=== PATIENT | female | born 2000 | race Caucasian/White ===

== ENCOUNTER → 2018-10-07 10:44 | Outpatient (CLI) | payer OTHER, SELFPAY ==
--- NOTE | 2018-10-07 11:00 | EKG12_ITS ---
Test Reason : SOB,31WK PREG Blood Pressure : / mmHG Vent. Rate : 073 BPM Atrial Rate : 073 BPM P-R Int : 136 ms QRS Dur : 086 ms QT Int : 392 ms P-R-T Axes : 050 089 -05 degrees QTc Int : 431 ms Normal sinus rhythm T wave abnormality, consider inferior ischemia Abnormal ECG Confirmed by MIRIAN ALFORD, JAISON ([id number]), editor book JOSE FONTANEZ ([id number]) on 10/08/2018 1:16:36 PM Referred By: REGINE Prabhakar Confirmed By:JAISON VELA MD
[2018-10-07 11:32] LABS: Absolute Lymphocyte Count 1.71 X10^3/uL (0.83-4.51); Absolute Neutrophil Count 10.5 X10^3/uL (2.0-7.7); Basophil# 0.02 X10^3/uL; Basophil% 0.2 % (0-1); Eosinophil# 0.03 X10^3/uL; Eosinophils% 0.2 % (0-5); Hemoglobin 11.8 g/dL (12.0-15.0); Lymphocyte # 1.71 X10^3/ul (4.0); Lymphocyte % 13.1 % (19-41); Mean Corp Hgb Conc 33.7 g/dL (32-36); Mean Corpuscular Hgb 30.5 pg (27.0-32.0); Mean Corpuscular Volume 90.4 fL (81-99); Mean Platelet Vol. 9.2 fl (6.2-12.0); Monocyte% 5.4 % (0-10); NRBC Flagged by Analyzer 0 % (0-5); Neutrophil # 10.45 X10^3/uL (2.7-7.7); Neutrophil % 80.3 % (47-70); Platelet Count 196 K/mm3 (150-450); RBC Distribution Width CV 11.8 % (11.6-14.6); RBC Distribution Width SD 38.1 fl (35.1-43.9); Red Blood Count 3.87 M/mm3 (4.2-5.4)
[2018-10-07 11:46] LABS: ALB/GLOB Ratio 0.7 RATIO (0.9-2.4); AST(SGOT) 50 U/L (15-37); Alanine Aminotransfer ALT/SGPT 40 U/L (13-56); Albumin, Serum 2.9 g/dL (3.2-5.0); Alkaline Phosphatase 155 U/L (45-117); Amylase 48 U/L (25-115); Anion Gap 7 (5-15); BUN 8 mg/dL (7-18); BUN/Creat Ratio 15.8 RATIO (10-20); Calcium,Total 8.8 mg/dL (8.5-10.1); Chloride 107 mmol/L (98-107); Creatinine, Serum 0.51 mg/dL (0.55-1.02); EST Glomerular Filtration Rate 165 mL/min (>60); Est Glom Filt Rate - Afr Amer 199 mL/min (>60); Glucose 81 mg/dL (74-106); Lipase 113 U/L (73-393); Potassium 3.8 mmol/L (3.5-5.1); Protein, Total 6.9 g/dL (6.4-8.2); Sodium Level 139 mmol/L (136-145)
--- NOTE | 2018-10-07 13:00 | CT_ITS ---
STUDY: CTA CHEST REASON FOR EXAM: Female, 18 years old. Shortness of breath and patient is now 31 weeks RADIATION DOSAGE (If Supplied By Facility): CTDIvol = ( 8.06 ) mGy, DLP = ( 269.15 ) mGycm TECHNIQUE: The examination was performed with the intravenous administration of 100mL IV Isovue 370. Post-processing of the angiographic images was performed, with multiplanar reformation and 3D reconstruction. Individualized dose optimization techniques were used for this CT. COMPARISON: None. FINDINGS: Normal enhancement of the main pulmonary artery and right and left pulmonary arteries. There is limited enhancement of the bilateral peripheral pulmonary arteries. There is no demonstrated pulmonary embolism in the central portion. Assessment of the branches distal to the segmental branches is limited due to suboptimal contrast. Normal thoracic aorta and visualized great vessels. There is no demonstrated aortic dissection. Normal heart and pericardium. Normal mediastinum. Normal hilar regions. Normal visualized trachea and bronchi. The lungs are well expanded. Normal pulmonary parenchyma. Normal pleura. Normal chest wall structures. Normal osseous structures. Normal visualized upper abdomen. CT/CTA Chest W/WO Contrast IMPRESSION: No evidence of central pulmonary embolism. Assessment of the branches distal to the segmental branches is limited due to suboptimal contrast. No evidence of pneumonia, or pleural effusion. Correlation with patient's symptoms and history is recommended. Electronically Signed: Avery Bonilla MD at 14:20 EDT Tel [phone], Service support ,
== END ==
PROVIDERS: Family Provider Physician Assistant; PCP Physician Assistant; Referring Provider Advanced Practice Midwife; Visit Provider Advanced Practice Midwife
DX: O26.893 Other specified pregnancy related conditions, third trimester (principal); R06.02 Shortness of breath; R07.9 Chest pain, unspecified; Z3A.31 31 weeks gestation of pregnancy
CPT/HCPCS: 36415; 71275; 80053; 82150; 83690; 85025; 93005; Q9967

== ENCOUNTER 2018-12-03 04:55 | Inpatient (IN) | payer OTHER, SELFPAY ==
--- NOTE | 2018-12-02 09:44 | PCM.HP.BLA ---
History and Physical Date of Admission: 12/03/18 Pre-Op History and Physical ? HPI: The patient is a 18 year old female presenting for pre-operative visit. She is scheduled for?, for?breech on?12/03/18. ??Procedure discussed along with risks, benefits and complications. ?Other alternatives discussed for management. Consent form signed??Yes.? PAST?MEDICAL?HISTORY PAST MEDICAL HISTORY Diagnosis Date ? Anxiety ? ? Mental disorder ? ? ? PAST?SURGICAL?HISTORY No past surgical history on file. ? ? CURRENT?MEDICATIONS Current Outpatient Medications Medication Sig Dispense Refill ? acetaminophen (TYLENOL) 325 mg tablet Take 650 mg by mouth every 6 hours as needed. ? ? ? Tnbmtglq-Hi-Vov-Fe-FA ( VITAMIN) tab Take 1 tablet by mouth. ? ? ? No current facility-administered medications for this visit.? ? ALLERGIES:?Seasonal Allergies ? PERSONAL HISTORY:? 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 ??Social Needs ?Financial resource strain: Not on file ?Food insecurity: ?Worry: Not on file ?Inability: Not on file ?Transportation needs: ?Medical: Not on file ?Non-medical: Not on file ??Tobacco Use ?Smoking status: Never Smoker ?Smokeless tobacco: Never Used ??Substance and Sexual Activity ?Alcohol use: Never ?Frequency: Never ?Drug use: Never ?Sexual activity: Yes ?Partners: Male ??Lifestyle ?Physical activity: ?Days per week: Not on file ?Minutes per session: Not on file ?Stress: Not on file ??Relationships ?Social connections: ?Talks on phone: Not on file ?Gets together: Not on file ?Attends adventism service: Not on file ?Active member of club or organization: Not on file ?Attends meetings of clubs or organizations: Not on file ?Relationship status: Not on file ?Intimate partner violence: ?Fear of current or ex partner: Not on file ?Emotionally abused: Not on file ?Physically abused: Not on file ?Forced sexual activity: Not on file ??Other Topics ?Concerns: ?Not on file ??Social History Narrative ?Not on file ? FAMILY HISTORY:? FAMILY?HISTORY FAMILY HISTORY Problem Relation Age of Onset ? No Known Problems Mother ? ? No Known Problems Father ? ? No Known Problems Brother ? ? No Known Problems Maternal Grandmother ? ? No Known Problems Maternal Grandfather ? ? No Known Problems Paternal Grandmother ? ? Blood Clots Paternal Grandfather ? ? REVIEW OF SYMPTOMS: GENERAL: denies fevers or chills ENDOCRINOLOGY: has not been on steroids Cardiology : denies palpitations or chest pain Respiratory: denies SOB or cough Hematology: denies history of prolonged bleeding or easy bruising or VTE Allergy: Denies history of personal or family history of allergy to anesthesia ? ? PHYSICAL EXAMINATION: ? VITALS:?Last menstrual period 03/04/2018. ? GENERAL:??The patient is well nourished, well hydrated in no acute distress. ?, The patient is oriented to time, place, and person. NECK:?Supple. No lynphadenopathy, normal thyroid, no thyromegaly. LUNGS:?Clear to auscultation bilaterally. no wheezes, rhonchi or rales HEART:?Regular rate and rhythm, Normal heart sounds and No murmurs or gallops abd- soft, nontender, gravid ext- trace edema ? IMPRESSION:?Patient will be 39 and one sevenths weeks gestation on 12/03/2018, complete breech presentation. ? 1 para 0, declines external cephalic version attempt ? PLAN:???The risks/benefits/alternatives and personal involved for the planned?c/s?were reviewed with the patient. Her questions were answered to her satisfaction and she desires to proceed. ?Consent was signed. ?I reviewed with her postop instructions and expectations. ? This H&P was completed in my office on 11/29/2018. ?That they did skin the patient, her fluid was on the low normal level. ?Her placenta was anterior fundal and a little to the left. ? lie was maternal right. ?The breech was well engaged. ?We discussed that did not have a lot of favorable predictors for successful external cephalic version, patient was not interested in this but clinically it would been low likelihood of success regardless. ?Agree with proceeding with . ? ? I have reviewed and updated past medical and surgical history, medications and allergies? Georgie Padilla M.D. I have re-examined the patient. There are no clinical changes since date of exam. Brief ultrasound was confirmed, fetus is still breech. Patient desires to proceed with section.
[2018-12-03] VITALS (21 sets, daily range): BP systolic 103–138; BP diastolic 48–91; PULSE 76–111; RESP 16–20; TEMP 36.1–37.3; O2SAT 95–100; BMI 29.6
[2018-12-03 05:39] LABS: Absolute Lymphocyte Count 2.41 X10^3/uL (0.83-4.51); Absolute Neutrophil Count 8.2 X10^3/uL (2.0-7.7); Basophil# 0.03 X10^3/uL; Basophil% 0.3 % (0-1); Eosinophils% 1.7 % (0-5); Hematocrit 32.1 % (37-47); Hemoglobin 10.5 g/dL (12.0-15.0); Lymphocyte # 2.41 X10^3/ul (4.0); Lymphocyte % 20.3 % (19-41); Mean Corp Hgb Conc 32.7 g/dL (32-36); Mean Corpuscular Hgb 27.8 pg (27.0-32.0); Mean Corpuscular Volume 84.9 fL (81-99); Mean Platelet Vol. 10.8 fl (6.2-12.0); Monocyte# 0.95 X10^3/uL; NRBC Flagged by Analyzer 0 % (0-5); Neutrophil # 8.17 X10^3/uL (2.7-7.7); Neutrophil % 68.7 % (47-70); POSITIVE COUNT YES; Platelet Count 212 K/mm3 (150-450); RBC Distribution Width CV 12.2 % (11.6-14.6); RBC Distribution Width SD 37.2 fl (35.1-43.9); Red Blood Count 3.78 M/mm3 (4.2-5.4); White Blood Count 11.9 K/mm3 (4.4-11.0)
[2018-12-03] MEDS: Lactated Ringers 1,000 ML 999 ML IV (05:50)
[2018-12-03 06:16] LABS: Differential Indicated SCAN CRITERIA MET
[2018-12-03 06:17] LABS: Differential Comment SCANNED
[2018-12-03] MEDS: Sodium Citrate/Citric Acid 30 ML UDC PO (07:12)
[2018-12-03] MEDS: Lactated Ringers 1,000 ML 150 ML IV (07:13)
[2018-12-03] MEDS: Cefazolin 2 GM in 0.9% Normal Saline 100 ML IV (08:10)
--- NOTE | 2018-12-03 08:11 | PCM.OPRPT ---
Delivery Classification: Scheduled Final ALBERTO: 12/09/18 Final ALBERTO Source: US <20 weeks Gestational age: 39 Weeks and 1 Days faculty research physician: Hailey Shields Type of Anesthesia:: Spinal Special Medications: none Implants Used: none Date of Procedure: 12/03/18 Pre-Operative Diagnosis: rosi breech Post-Operative Diagnosis: same Indications for : Breech Description of Procedure: Normal-appearing uterus tubes and ovaries. Normal placenta with three-vessel cord. Amniotic Membrane Rupture Type: Artificial Amniotic Fluid Description: Clear Placenta Disposition: [facility] Specimen(s) sent to pathology: None Drain: Guzman to straight drain Fluids Replaced: 1000 cc Cord Entanglement: None Cord Vessel Description: 3 Vessels Esitmated Blood Loss (ml): 800 Gender: Male (1 minute): 8 (5 minute): 9 Delayed cord clamping: Yes Antibiotic Given: Ancef 2 grams IV x1 Complications: None - Admit VTE Documentation VTE Present on Admission: No VTE Mechan Device Prophylaxis: SCD's VTE Pharm Prophylaxis ordered?: No Reason prophylaxis not ordered:: Procedure Not Indicated
[2018-12-03] MEDS: Oxytocin 30 units/NS 500 ml 30 UNITS/500 ML IV.SOLN 167 UNITS IV (08:33)
[2018-12-03] MEDS: Methylergonovine 0.2 MG/ML Ampul IM (09:17)
[2018-12-03] MEDS: Ondansetron ODT 4 MG Tablet PO (10:14)
[2018-12-03] MEDS: Lactated Ringers 1,000 ML 100 ML IV (11:44)
[2018-12-03] MEDS: Ketorolac 30 MG/ML Syringe IV ×2 (14:25→20:47)
[2018-12-03] MEDS: 0.9% Saline Lock 10 ML Syringe IV (20:48)
--- NOTE | 2018-12-03 20:59 | NURSING ---
Indwelling calero catheter present. WNL.
[2018-12-04 01:30] VITALS: PULSE 110; RESP 16; O2SAT 98
--- NOTE | 2018-12-04 01:30 | NURSING ---
Patient denies shortness of breath. Bleeding WNL.
[2018-12-04] MEDS: Ketorolac 30 MG/ML Syringe IV ×4 (02:19→20:35)
[2018-12-04] MEDS: 0.9% Saline Lock 10 ML Syringe IV ×4 (02:19→20:36)
[2018-12-04 03:30] VITALS: BP 119/63; PULSE 96; RESP 18; TEMP 36.6; O2SAT 97
[2018-12-04 05:30] VITALS: PULSE 101; RESP 18; O2SAT 97
[2018-12-04 05:34] LABS: Hematocrit 23.7 % (37-47); Hemoglobin 7.8 g/dL (12.0-15.0); Mean Corp Hgb Conc 32.9 g/dL (32-36); Mean Corpuscular Volume 84.9 fL (81-99); Mean Platelet Vol. 9.8 fl (6.2-12.0); Platelet Count 173 K/mm3 (150-450); RBC Distribution Width CV 12.3 % (11.6-14.6); RBC Distribution Width SD 37.4 fl (35.1-43.9); Red Blood Count 2.79 M/mm3 (4.2-5.4); White Blood Count 16.7 K/mm3 (4.4-11.0)
[2018-12-04 07:00] VITALS: BP 120/70; PULSE 90; RESP 14; TEMP 36.6; O2SAT 96
--- NOTE | 2018-12-04 09:10 | PCM.PROGNOTE ---
Subjective: Doing well per patient and nursing and staff. Ambulating and taking PO without difficulty. Voiding and passing flatus. without complaints. No increased vaginal bleeding or clots. Planning D/C home tomorrow. - Physical Exam General: Alert, Oriented x3, Cooperative HEENT: Atraumatic, Normocephalic Neck: Trachea Midline Lungs: Clear to auscultation, Normal air movement, No rhonchi, No wheeze Cardiovascular: Regular rate, Regular Rhythm, No murmurs Abdomen: Bowel Sounds Present, - - Fundus firm 2 below U Extremities: No edema Psych/Mental Status: Normal Affect, Appropriate Vital Signs Temp Pulse Resp BP Pulse Ox 97.8 F 90 14 120/70 96 12/04/18 07:00 12/04/18 07:00 12/04/18 07:00 12/04/18 07:00 12/04/18 07:00 Oxygen Delivery Method Room Air Weight: 178 lb 2.136 oz Body Mass Index (BMI) 29.6 Intake and Output for Last 24 Hours 12/02/18 12/03/18 12/04/18 23:59 23:59 23:59 Intake Total 3713.33 / 3713.33 Output Total 600 / 600 1400 / 1400 Balance 3113.33 / 3113.33 -1400 / -1400 Laboratory Tests Past 24 Hrs 12/04/18 05:25 WBC 16.7 H RBC 2.79 L Hgb 7.8 L Hct 23.7 L MCV 84.9 MCH 28.0 MCHC 32.9 RDW Std Deviation 37.4 RDW Coeff of Stuart 12.3 Plt Count 173 MPV 9.8 Medical Necessity - Tobacco Use Smoking Status: Never smoker Assessment/Plan A:POD #1 LTCS due to breech presentation P: 1) Routine post op and care 2) Hgb 7.8, Ferrous Sulfate 325mg PO BID. Repeat CBC in am. Asymptomatic. 3) D/C home tomorrow
[2018-12-04] MEDS: Prenatal Vits Tablet 1 TABLET PO (11:29)
[2018-12-04] MEDS: Ferrous Sulfate 325 MG Tablet PO ×2 (11:29→20:36)
[2018-12-04 13:54] VITALS: BP 119/69; PULSE 89; RESP 14; TEMP 37
[2018-12-04 20:41] VITALS: BP 131/76; PULSE 91; RESP 16; TEMP 37.1; O2SAT 100
[2018-12-05 02:00] VITALS: BP 122/79; PULSE 80; RESP 18; TEMP 36.8; O2SAT 99
[2018-12-05] MEDS: Ketorolac 30 MG/ML Syringe IV ×2 (02:34→09:45)
[2018-12-05] MEDS: 0.9% Saline Lock 10 ML Syringe IV ×2 (02:34→09:44)
[2018-12-05 04:31] LABS: Absolute Lymphocyte Count 2.38 X10^3/uL (0.83-4.51); Absolute Neutrophil Count 9.6 X10^3/uL (2.0-7.7); Basophil# 0.05 X10^3/uL; Basophil% 0.4 % (0-1); Eosinophil# 0.23 X10^3/uL; Eosinophils% 1.7 % (0-5); Hematocrit 24.7 % (37-47); Hemoglobin 7.8 g/dL (12.0-15.0); Lymphocyte # 2.38 X10^3/ul (4.0); Lymphocyte % 17.6 % (19-41); Mean Corp Hgb Conc 31.6 g/dL (32-36); Mean Corpuscular Hgb 27.3 pg (27.0-32.0); Mean Corpuscular Volume 86.4 fL (81-99); Mean Platelet Vol. 9.7 fl (6.2-12.0); Monocyte# 1.02 X10^3/uL; Monocyte% 7.5 % (0-10); NRBC Flagged by Analyzer 0 % (0-5); Neutrophil # 9.59 X10^3/uL (2.7-7.7); Neutrophil % 70.8 % (47-70); Platelet Count 168 K/mm3 (150-450); RBC Distribution Width CV 12.6 % (11.6-14.6); RBC Distribution Width SD 39.3 fl (35.1-43.9); Red Blood Count 2.86 M/mm3 (4.2-5.4); White Blood Count 13.5 K/mm3 (4.4-11.0)
--- NOTE | 2018-12-05 06:32 | PCM.PN.OB ---
Subjective: Pain well controlled, average lochia. + BM. Tolerating regular diet - Physical Exam General: Alert, Cooperative, No apparent distress Abdomen: Soft, Distended - moderately, softly, Tender - appropriately Extremities: Edema - trace Skin: Incision - bandage- clean, dry and intact Vital Signs Temp Pulse Resp BP Pulse Ox 98.3 F 80 18 122/79 H 99 12/05/18 02:00 12/05/18 02:00 12/05/18 02:00 12/05/18 02:00 12/05/18 02:00 Oxygen Delivery Method Room Air Weight: 80.8 kg Body Mass Index (BMI) 29.6 Intake and Output for Last 24 Hours 12/03/18 12/04/18 12/05/18 23:59 23:59 23:59 Intake Total 3713.33 / 3713.33 240 / 240 Output Total 600 / 600 1999 Balance 3113.33 / 3113.33 -1999 240 / 240 Laboratory Tests Past 24 Hrs 12/05/18 04:15 WBC 13.5 H RBC 2.86 L Hgb 7.8 L Hct 24.7 L MCV 86.4 MCH 27.3 MCHC 31.6 L RDW Std Deviation 39.3 RDW Coeff of Stuart 12.6 Plt Count 168 MPV 9.7 Immature Gran % (Auto) 2.000 H Neut % (Auto) 70.8 H Lymph % (Auto) 17.6 L [place] % (Auto) 7.5 Eos % (Auto) 1.7 Baso % (Auto) 0.4 Absolute Neuts (auto) 9.6 H Absolute Lymphs (auto) 2.38 Nucleated RBC % 0 Medical Necessity - Tobacco Use Smoking Status: Never smoker Assessment/Plan Postoperative day #2 status post primary for rosi breech presentation. Patient is doing well. Ready for discharge today. Declines prescription for narcotics. Pain is been controlled in the hospital without them. is breast-feeding and doing well. Stable anemia. She has superimposed acute blood loss anemia appropriate for blood loss during surgery on top of her chronic antepartum anemia. Encourage patient to take iron and vitamins regularly.
--- NOTE | 2018-12-05 06:38 | PCM.DCCSEC ---
Discharge Diet: No Restrictions Discharge Activity: Return to Normal Activity, May Not Drive - for 2 weeks, May not drive while taking narcotic pain medications., May Shower, May Take a Tub Bath - in 7 days. May resume sexual activity in: 4-6 weeks Lifting Restrictions: 20 pounds Additional Activity Instructions:: Nothing in the vagina for 4-6 weeks. You may return to work/school in 6 weeks. Call your doctor if your incision/area has: Continuous Slow Oozing, Sudden Increased Bleeding, Increased Pain/ Swelling, Increased Redness, Foul Smelling Discharge Call your doctor if you observe: Fever of 101 or Higher, Using more than one pad per hour - for 2 hours Suture Line Care: Avoid Pulling/Pushing, Avoid Pinching/Bending Cleanse incision/area with: Keep Dressing Clean & Dry Additional Dressing/Incision Instructions:: Remove your bandage on 12/08/18 or sooner if it becomes wet underneath or saturated Additional Instructions: If you experience any of the following, contact your healthcare provider. Bleeding that soaks a pad every hour for 2 hours Fever 100.4 or higher Unrelieved incision or abdominal pain Swelling, redness, discharge or bleeding from your incision or episiotomy site Your incision begins to separate Problems urinating (including inability to urinate or burning while urinating). Visual changes Severe headache Flu-like symptoms Pain or redness in one of both of your breasts Pain, warmth, tenderness or swelling in your legs, especially the calf area Frequent nausea and vomiting Symptoms of depression or anxiety If you experience any of the following, call 911 or go to the nearest Emergency Room. Chest pain Problems breathing Seizure activity Partial or complete paralysis of a body part, slurred speech, weakness or drooping of the face, or a sudden inability to walk or hold your balance Allergies/Adverse Reactions: Allergies No Known Allergies Allergy (Verified 12/03/18 05:07) Medications to take at Discharge Pnv No.103/Folic/Om3s/Fish Oil [ Gummies] 1 tab.chew PO DAILY 12/03/18 Ferrous Sulfate 325 mg PO QODAY 60 Days #15 tablet. 12/05/18 Ibuprofen [Motrin] 800 mg PO TID PRN PRN #60 tab 12/05/18 The following prescriptions were given: Ferrous Sulfate 325 mg PO QODAY 60 Days #15 tablet. [facility]: [id number] Ibuprofen [Motrin] 800 mg PO TID PRN PRN #60 tab PRN Reason: Pain Transmission Status[id number] Follow-Up: Call to make an appointment with your doctor for an incision check in 1-2 weeks. You will also need a 6 week post- follow up appointment. Test results from this visit will be discussed in further detail at your follow-up appointment, if applicable. Please Follow Up With: Georgie Padilla MD - Call to make an appointment for an incision check in 1-2 [phone] When: You will need a post check in 6 weeks. Primary Care Physician: Cherry Guido PA [Primary Care Provider] -
--- NOTE | 2018-12-05 06:39 | PCM.DC.SUM ---
Discharge Date and Diagnosis Date of Admission: 12/03/18 Date of Discharge: 12/05/18 Hospital Course and Treatment Operations: - - Primary low transverse section via Pfannenstiel skin incision with double layer closure of the uterus with Vicryl suture Procedures: None Summary of Care Provided: The patient is a 18 year old primigravida was admitted at 39-1/7 weeks gestation for primary section due to rosi breech presentation. This was performed without difficulty. By postoperative day #2 she was ambulating, urinating tolerating regular diet without difficulty. Pain was well controlled without narcotics and she declined a narcotic prescription for home. She was discharged home with otherwise routine instructions and prescriptions. She was encouraged to take her iron and vitamins regularly due to her chronic antepartum anemia with superimposed acute blood loss anemia appropriate for blood loss during the surgery. [] - Physical Exam Vital Signs Temp Pulse Resp BP Pulse Ox 98.3 F 80 18 122/79 H 99 12/05/18 02:00 12/05/18 02:00 12/05/18 02:00 12/05/18 02:00 12/05/18 02:00 Oxygen Delivery Method Room Air Weight: 80.8 kg Body Mass Index (BMI) 29.6 Intake and Output for Last 24 Hours 12/03/18 12/04/18 12/05/18 23:59 23:59 23:59 Intake Total 3713.33 / 3713.33 240 / 240 Output Total 600 / 600 1999 Balance 3113.33 / 3113.33 -1999 240 / 240 Laboratory Tests Past 24 Hrs 12/05/18 04:15 WBC 13.5 H RBC 2.86 L Hgb 7.8 L Hct 24.7 L MCV 86.4 MCH 27.3 MCHC 31.6 L RDW Std Deviation 39.3 RDW Coeff of Stuart 12.6 Plt Count 168 MPV 9.7 Immature Gran % (Auto) 2.000 H Neut % (Auto) 70.8 H Lymph % (Auto) 17.6 L [place] % (Auto) 7.5 Eos % (Auto) 1.7 Baso % (Auto) 0.4 Absolute Neuts (auto) 9.6 H Absolute Lymphs (auto) 2.38 Nucleated RBC % 0 Discharge Diet: No Restrictions Discharge Activity: Return to Normal Activity, May Not Drive - for 2 weeks, May not drive while taking narcotic pain medications., May Shower, May Take a Tub Bath - in 7 days. May resume sexual activity in: 4-6 weeks Additional Activity Instructions:: Nothing in the vagina for 4-6 weeks. You may return to work/school in 6 weeks. Call your doctor if your incision/area has: Continuous Slow Oozing, Sudden Increased Bleeding, Increased Pain/ Swelling, Increased Redness, Foul Smelling Discharge Call your doctor if you observe: Fever of 101 or Higher, Using more than one pad per hour - for 2 hours Suture Line Care: Avoid Pulling/Pushing, Avoid Pinching/Bending Cleanse incision/area with: Keep Dressing Clean & Dry Additional Dressing/Incision Instructions:: Remove your bandage on 12/08/18 or sooner if it becomes wet underneath or saturated Home Medications: Medications to take at Discharge Pnv No.103/Folic/Om3s/Fish Oil [ Gummies] 1 tab.chew PO DAILY 12/03/18 Ferrous Sulfate 325 mg PO QODAY 60 Days #15 tablet. 12/05/18 Ibuprofen [Motrin] 800 mg PO TID PRN PRN #60 tab 12/05/18 Following Prescrptions Were Given to Patient: Ferrous Sulfate 325 mg PO QODAY 60 Days #15 tablet. Transmission Status: Pending to [facility] Ibuprofen [Motrin] 800 mg PO TID PRN PRN #60 tab PRN Reason: Pain Transmission Status: Pending to [facility] Primary Care Physician: Cherry Guido PA [Primary Care Provider] - Please Follow Up With: Georgie Padilla MD - Call to make an appointment for an incision check in 1-2 [phone] When: You will need a post check in 6 weeks. Medical Necessity - Tobacco Use Smoking Status: Never smoker Meaningful Use Info Meaningful Use Diagnoses (Choose all that apply): None applicable
[2018-12-05 10:00] VITALS: BP 132/72; PULSE 91; RESP 91; TEMP 36.4
[2018-12-05] MEDS: Prenatal Vits Tablet 1 TABLET PO (14:25)
[2018-12-05] MEDS: Ferrous Sulfate 325 MG Tablet PO (14:25)
[2018-12-05 15:00] VITALS: BP 132/87; PULSE 84; RESP 16; TEMP 36.4
== END 2018-12-05 15:43 | disposition home or self-care (01) | DRG 788 ==
PROVIDERS: Advanced Practice Midwife; Admitting Provider Obstetrics & Gynecology; Family Provider Physician Assistant; PCP Physician Assistant; Referring Provider Obstetrics & Gynecology; Visit Provider Obstetrics & Gynecology
PROC: 10D00Z1 Extraction of Products of Conception, Low, Open Approach (ICD-10-PCS; CPT 59514; principal; 2018-12-03 07:15)
DX: O32.1XX0 Maternal care for breech presentation, not applicable or unspecified (principal); O99.02 Anemia complicating childbirth; D64.9 Anemia, unspecified; Z3A.39 39 weeks gestation of pregnancy; Z37.0 Single live birth
CPT/HCPCS: 85025; 85027; 86850; 86900; 86901; 99218; J7120; A4216; G0378; J2405

== ENCOUNTER → 2020-11-08 | Outpatient (CLI) | payer OTHER, SELFPAY | END | disposition home or self-care (01) | LOC: LABSPEC 07:38 | PROVIDERS: PCP Physician Assistant; Referring Provider Physician Assistant; Visit Provider Physician Assistant | DX: Z11.52 Encounter for screening for COVID-19 (principal) | CPT/HCPCS: 87635; U0005; U0003 ==

== ENCOUNTER 2023-03-26 09:43 | Inpatient (IN) | payer OTHER, SELFPAY ==
[2023-03-26] VITALS (18 sets, daily range): BP systolic 77–131; BP diastolic 49–85; PULSE 76–114; RESP 14–20; TEMP 36.3–36.9; O2SAT 98–100; BMI 26.4
--- NOTE | 2023-03-26 08:24 | PCM.HP.BLA ---
History and Physical Date of Admission: 03/26/23 Pre-Op History and Physical ? HPI: The patient is a 22 year old female presenting for pre-operative visit. She is scheduled for , for history prior section on 03/26/23. Procedure discussed along with risks, benefits and complications. Other alternatives discussed for management. Consent form signed? Yes. ? ? PAST MEDICAL HISTORYExpand by Default PAST MEDICAL HISTORY Diagnosis Date ? Anxiety/depression ? ? Mental disorder ? ? ? PAST SURGICAL HISTORYExpand by Default PAST SURGICAL HISTORY Procedure Laterality Date ? SNGL ? 12/03/2018 ? ? ? CURRENT MEDICATIONSExpand by Default Current Outpatient Medications Medication Sig Dispense Refill ? famotidine (PEPCID) 40 mg tablet Take 1 tablet by mouth once daily. 30 tablet 3 ? prental multivitamin 27 mg iron- 800 mcg tablet Take 1 tablet by mouth once daily. ? ? ? acetaminophen (TYLENOL) 325 mg tablet Take 650 mg by mouth every 6 hours as needed. ? ? ? No current facility-administered medications for this visit. ? ? ALLERGIES: Seasonal Allergies ? PERSONAL HISTORY: SOCIAL HISTORYExpand by Default Social History ? Tobacco Use ? Smoking status: Never ? Smokeless tobacco: Never Vaping Use ? Vaping Use: Never used Substance Use Topics ? Alcohol use: Never ? Drug use: Never ? FAMILY HISTORY: FAMILY HISTORYExpand by Default FAMILY HISTORY Problem Relation Age of Onset ? No Known Problems Mother ? ? No Known Problems Father ? ? No Known Problems Brother ? ? No Known Problems Maternal Grandmother ? ? No Known Problems Maternal Grandfather ? ? No Known Problems Paternal Grandmother ? ? Blood Clots Paternal Grandfather ? ? Lymphoma Paternal Grandfather ? ? No Known Problems Son ? ? ? REVIEW OF SYMPTOMS: negative except as noted above PHYSICAL EXAMINATION: ? VITALS: Last menstrual period 06/24/2022. ? GENERAL: The patient is well nourished, well hydrated in no acute distress. The patient is oriented to time, place, and person. NECK: Supple. LUNGS: No wheezing or increased resp effort. HEART: Regular rate. ? IMPRESSION: pre op for repeat section ? PLAN: pre op for repeat section ? Discussed repeat section in detail including r/b/a. ? I have reviewed and updated past medical and surgical history, medications and allergies Magaly Lorenzana DO Assessment & Plan Assessment/Plan (1) 39 weeks gestation of : (2) Hx of section:
[2023-03-26] MEDS: Lactated Ringers 1,000 ML 150 ML IV (10:10)
--- OUTSIDE RECORDS SUMMARY | 2023-03-26 10:18 | XMS RPT_ITS | CCD ---
Author Name Unknown Address [address] [place] [address] Organization [facility] Care Team Providers Care Strike Planning Applications Name Role Phone TARA, DR TEMO Jones Attending Unavaila ble TARA, DR TEMO Jones Admitting Unavaila ble NO, DOCTOR ON Consulting Unavailable TARA, DR TEMO Jones Primary Care Unavaila ble TARA, DR TEMO Jones Primary Care Unavaila ble TARA, DR TEMO Jones Attending Unavaila ble NO, DOCTOR ON Consulting Unavailable TARA, DR TEOM Jones Admitting Unavaila ble TARA, DR TEMO Jones Primary Care Unavaila ble TARA, DR TEMO Jones Attending Unavaila ble TARA, DR TEMO Jones Admitting Unavaila ble Unavailable Primary Care Provider UnavailRADHA Waldrop Attending Unavailable ULICES PADILLA Attending Unavailable AKI, HAYLEY Referring Unavailable AKI, HAYLEY Referring Unavailable RADHA ESTEBAN Attending Unavailable RADHA ESTEBAN Attending Unavailable AKI HAYLEY Referring Unavailable HAYLEY PRABHAKAR Attending Unavailable ULICES PADILLA Attending Unavailable ULICES PADILLA Attending Unavailable HAYLEY PRABHAKAR Attending Unavailable PRABHAKAR, HAYLEY Referring Unavailable PRABHAKARHAYLEY Attending Unavailable PRABHAKAR, HAYLEY Referring Unavailable UPTAIN, CRYSTAL Primary Care Unavailable WISWELL KOURTNEY Attending Unavailable SELF Referring Unavailable UPTAIN, CRYSTAL Primary Care Unavailable WISWELL KOURTNEY Attending Unavailable UPTAIN, CRYSTAL Primary Care Unavailable PRABHAKAR, HAYLEY Referring Unavailable CARLOS PRABHAKARSSICA Attending Unavailable ANDRIA ROCK Attending Unavailable Cherry Guido PA-C Unavailable Cherry Guido PA-C Unavailable Economic Analyst/Gynecology Prov. Unavailable Un available Emma Simmons MD Unavailable Lala Cope LPN Unavailable Day SYRUP MIXER ASSISTANT, Tete Unavailable Unavailable Gogoi (scribe), Hemanta Unavailable Unavaila ble Evangelista SYRUP MIXER ASSISTANT, Tayler Unavailable Unavailable Mynor ALFORD, Omega Wong Unavailable King PAGEC, Chip Farley Unavailable Gia RN, Lavinia Marvin Unavailable Unavaila megha Han RN, Jazmín Unavailable Prieto RN, Delmy Y Unavailable Unavailable Uptain CNM, Crystal K Unavailable Vess SYRUP MIXER ASSISTANT, Neilee L Unavailable Unavailable Wengerd SYRUP MIXER ASSISTANT, Anjali Unavailable Unavailabl e Zaugg SYRUP MIXER ASSISTANT, Hayley Unavailable Unavailable Unavailable Unavailable Allergies Allergy Classification Reported Allergen(s) Allergy Type Date of Onset Reaction(s) Facility (10 sources) Seasonal allergy; Translations: [SEASONAL ALLERGIES] Allergy to substance 9 Other: See Comments [facility] Work Phone: Medications Current Medications Medication Drug Class(es) Dates Sig (Normalized) Sig (Original) famotidine 40 mg oral tablet (3 sources) Histamine-2 Receptor Antagonist Start: 12-15-2022 End: 04-14-2023 take 1 tablet by mouth once daily famotidine (PEPCID) 40 mg tablet Take 1 tablet by mouth once daily. 30 tablet 3 12/15/2022 04/14/2023 Active Completed/Discontinued Medications Medication Drug Class(es) Dates Sig (Normalized) Sig (Original) acetaminophen 325 mg oral tablet (9 sources) take 2 tablets by mouth every six hours as needed acetaminophen (TYLENOL) 325 mg tablet Take 650 mg by mouth every 6 hours as needed. 0 Active Problems Active Problems Problem Classification Problem Date Documented Da te Episodic/Chronic Allergic reactions (2 sources) Urticaria; Translations: [Urticaria, unspecified] 12-10-2018 Episodic Anxiety disorders (3 sources) Anxiety; Translations: [Anxiety disorder, unspecified] 12-10-2018 Chronic Conditions associated with dizziness or vertigo (1 source) Vertigo; Translations: [Dizziness and giddiness] 05-27-2013 Episodic Contraceptive and procreative management (5 sources) Patient encounter status; Translations: [Encounter for other general counseling and advice on contraception] 12-10-2019 Episodic Past or Other Problems Problem Classification Problem Date Documented Date Episodic/Chronic Other complications of (3 sources) Other specified related conditions, second trimester; Translations: [Other specified related conditions, second trimester] Onset: 12-16-2019 Episodic Other complications of (6 sources) High risk ; Translations: [Supervision of other high risk pregnancies, first trimester] Onset: 08-21-2022 08-21-2022 Episodic Other connective tissue disease (1 source) Myalgia, unspecified site; Translations: [Myalgia, unspecified site] Onset: 01-23-2020 Episodic Other lower respiratory disease (1 source) Shortness of breath; Translations: [Shortness of breath] Onset: 01-23-2020 Episodic Other nervous system disorders (3 sources) Other disturbances of smell and taste; Translations: [Other disturbances of smell and taste] Onset: 01-23-2020 Episodic Residual codes; unclassified (1 source) 25 weeks gestation of ; Translations: [25 weeks gestation of ] Onset: 12-16-2019 Episodic Screening and history of mental health and substance abuse codes (10 sources) H/O: anxiety state; Translations: [Personal history of other mental and behavioral disorders] Onset: 05-09-2018 05-09-2018 Episodic Spondylosis; intervertebral disc disorders; other back problems (1 source) Dorsalgia, unspecified; Translations: [Dorsalgia, unspecified] Onset: 12-16-2019 Episodic Unclassified (1 source) Well adult female - The patient feels well with no complaints, has good energy level and is sleeping well. The first day of the last menstrual period was : (11/20/19). The patient is not using any method of contraception at this time. The patient has a balanced diet and takes no supplemental vitamins & iron. The patient exercises 3 - 4 times per week. The patient sleeps 7 hours per night. Note for Well adult female : wanting to start on control 12-10-2019 Unclassified (1 source) Rash - The onset of the rash has been gradual and has been occurring in a persistent pattern for 2 days. The course has been increasing. The rash is characterized as red and raised above the skin. The rash was first seen on the back. It spread to the face, the trunk, the upper extremity and the lower extremity. There has been associated itching, while there has been no associated drainage. Note for Rash : Took benadryl last night.No recent cold symptoms. No new foods, laundry detergents, etc. 04-18-2018 Unclassified (1 source) Follow up for chronic condition - The patient is here for follow-up of anxiety (Last seen 11/17/2017 for anxiety, started on Fluoxetine 20mg daily). The patient has stopped the recommended medications. The patient has an active lifestyle but no regular exercise program. The patient states that the disease has moderate emotional impact. Note for Chronic condition follow-up : medication did not help, has not taken in 1 week. gained weight and increased appetite on medicine. wanting to try different medanxiety has gotten work 01-31-2018 Unclassified (1 source) Anxiety - The anxiety has been occurring for 1 month. The course has been increasing. The anxiety is characterized as apprehension, expectant dread, sinking feeling, nervousness and extreme fear. The symptoms have been associated with feeling of sadness (states that she cries after school going to work), but have not been associated with suicidal thoughts. 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 States that she can feel her BP dropping and has passed out once. Is having trouble with falling asleep and then will not want to get up in the mornings. Appetite and weight has increased. Acne has become worse in the past 2 months.States that she will start to think about things such as school and body with will shake. [place] that she has had a panic attack about once a week. 11-17-2017 Unclassified (1 source) Cold Symptoms - Symptoms include nasal congestion, runny nose, sore throat, dry cough (sounds deep now, chest hurts), fever, chills, general malaise and headache, but do not include ear pain. The onset was gradual 3 day(s) ago. The symptoms occur constantly. The patient describes this as moderate in severity and unchanged. Current treatment includes non-prescription cold medication. The patient has not been exposed to an individual with similar symptoms. Medical history includes seasonal allergies, but patient denies history of recurrent sinusitis, recurrent strep pharyngitis, asthma, tonsillectomy or recurrent ear infections. Note for Upper respiratory infection : no appetite 03-07-2017 Unclassified (1 source) Sore throat - The onset of the sore throat has been sudden and has been occurring in a persistent pattern for 2 days. The course has been gradually worsening. Symptoms include sore throat (swollen tonsils, neck soreness), headache, runny nose and nasal congestion, but do not include fever, cough or ear pain. The symptoms are aggravated by eating, swallowing and talking. There are no relieving factors. Medical history includes seasonal allergies, but does not include recurrent sinusitis, recurrent strep pharyngitis or tonsillectomy. Note for Sore throat : For the past week, would feel nausated and upset stomach after eating. No body aches. Yesterday, she had pain of her back. 03-10-2016 Unclassified (1 source) Abdominal pain - The abdominal pain has been occurring in an intermittent pattern for 3 weeks. The pain is described as a cramping. The pain does not radiate. The symptoms are relieved by vomiting (will feel better for about 20 minutes). The symptoms have been associated with bloating, diarrhea, heartburn and nausea, while the symptoms have not been associated with bloody stools, chest pain, fever or vomiting. Note for Abdominal pain : No urinary symptoms.Will start to feel sick and will start to have a crampy burning pain in the middle upper abdomen or the right lower abdomen that does not feel like a menstrual cramp. Will drink coffee or spicy foods will make it make worse. For awhile, she was eating alot of fast food. Typically, she does not. Thought that could have been the reason. But continues to have the abdominal pain despite not eating as much fast food. Has been drinking several iced coffees dailyLMP current. Stopped all meds in case this was contributing. Today is the third day she has missed school due to sx. No unusual stressors at school other than volleyball. 12-23-2014 Unclassified (1 source) Well child visit #4 - 13 to 17 years - The child is here for a 16 to 17 year well-child visit. The primary caregiver is the mother and father. Family status: coping adequately. There are no behavioral problems. The patient is eating a variety of foods. Meals/day: 2 (with snacks, is working on eating breakfast more). Menstruation: regular periods. The child performs well in school, interacts well with peers and participates in extracurricular activities (volleyball, track). Safety measures taken include appropriate use of safety belts and home smoke detectors. Note for Well child visit #4 - 13 to 17 years : [place]; has a rash on her legs that is better but now has one on her chestwas dealing with bullying at school when at [employer]; will go to [employer] this year and is liking that it is smaller so far 09-21-2014 Unclassified (1 source) UTI - Symptoms include dysuria, urinary frequency, urinary urgency and hematuria (last sunday scant amount, thought may have been start of menses, ), but do not include dark urine, malodorous urine, flank pain, abdominal pain or back pain. There is no assiciated pain. There is no radiation. Onset was sudden 2 day(s) ago. The symptoms occur constantly. The patient describes this as moderate in severity and unchanged. Associated symptoms do not include fever, nausea, vomiting or vaginal discharge. Note for UTI : Reports having similar symptoms back in February of this year and started drinking cranberry juice and taking OTC Medication for UTI and the symptoms cleared up. LMP 2 weeks ago; continues OCP. 06-30-2014 Unclassified (1 source) Well child visit #4 - 13 to 17 years - The child is here for a 15 to 16 year well-child visit. The primary caregiver is the mother and father. Family status: coping adequately. There are no behavioral problems. The patient has a balanced diet. Meals/day: 3. Menstruation: regular periods. The child performs well in school, interacts well with peers and participates in extracurricular activities. Safety measures taken include appropriate use of safety belts, home smoke detectors, avoiding exposure to passive smoke, counseling regarding substance abuse, counseling regarding safe sex/HIV and counseling regarding control. Note for Well child visit #4 - 13 to 17 years : Patient complains of her eyes hurting when she looks to the left and right. Just started in the last couple weeks but is worse thes last couple days. Notes some dizziness as well. No URI sx altho has had some allergies. No light sensitivity. Does not wear glasses or contacts. No blurred vision. Has not had itchy eyes. No injury. Some headaches with this as well.Mom present for visit today and inquires about control pills. Reports pt has had a boyfriend for a year, they have beeen fairly intimate, and mom is concerned she should be on OCPs to prevent 09-08-2013 Unclassified (1 source) Sore throat - The onset of the sore throat has been acute and has been occurring in an increasing pattern for 3 days. The course has been constant. The sore throat is described as moderate to severe. Symptoms include sore throat, fever and ear pain, but do not include headache, runny nose, nasal congestion or cough. The symptoms are aggravated by eating, swallowing and talking. There are no relieving factors. Note for Sore throat : seen last week dizziness and that has improved; no nausea or vomitting 06-02-2013 Unclassified (1 source) Dizziness - The onset of the dizziness has been acute and has been occurring in a persistent pattern for 2 days. The course has been increasing. The dizziness is characterized as lightheadedness and feeling in the head. The dizziness is precipitated by position change, head turning and standing suddenly. There has been associated headache (yesterday), fever (99) and visual changes (blurring), while there has been no associated nausea, vomiting, upper respiratory infection symptoms, ear pain or ear fullness. The dizziness is relieved by avoiding head movements. Note for Dizziness : mom had viral uri last week.did try some allergy meds and tylenol 05-27-2013 Unclassified (1 source) Form Completion Physicals - The patient feels well with minor complaints (Patient has a blood blister on the bottom of her left foot she would like checked. Was running barefoot thru a pile of rocks and then noticed this afterwards. Mildly painful. Occurred ~2 weeks ago), has good energy level and is sleeping well. There are no current symptoms. The patient exercises weekly. The patient has an appropriate balanced diet and sleeps on average 9 hours per night. Safety measures include appropriate use of car seats/safety belts, appropriate use of helmets, appropriate use of safety belts, avoiding exposure to passive smoke and awareness of dangers of passenger-side air bags. There are no behavioral problems. Note for Form completion physical : Tdap 09/15/11. 08-26-2012 Unclassified (1 source) Well child visit #4 - 13 to 17 years - The child is here for a follow-up 13 to 14 year well-child visit. Family status: coping adequately. There are no behavioral problems. The patient has a balanced diet. There are no eating difficulties. Meals/day: 2. The child performs well in school, interacts well with peers and participates in extracurricular activities. Safety measures taken include appropriate use of safety belts and home smoke detectors. 09-15-2011 Unclassified (1 source) Well child visit #3 - 4 to 12 years - The child is here for a follow-up 10 year well-child visit. Family status: coping adequately. There are no behavioral problems. The child performs well in school and interacts well with peers. Note for Well child visit #3 - 4 to 12 years : Mom states she has a bump in her left ear. Not sure if it is a bug bite or a pimple. It is reddened and somewhat painful. Has had for about 2 days. Otherwise no concerns. 08-30-2010 Unclassified (1 source) Cold Symptoms - Symptoms include runny nose, sore throat, dry cough (intermittent) and fever (low grade), but do not include ear pain. The onset was sudden 4 day(s) ago. Current treatment includes non-prescription cold medication. The patient has not been exposed to an individual with strep. Medical History Includes recurrent strep pharyngitis (none since last fall). 02-17-2010 Results Test Name Value Interpretation Reference Range Facil ity Vital Signs Date Time Vital Sign Value Performing Clinician Facility 01-10-2023 15:15-0500 Body weight 69.4 kg Ulices Padilla MD Work Phone: [facility] 01-10-2023 15:15-0500 Diastolic blood pressure 58 mm[Hg] Ulices Padilla MD Work Phone: [facility] 01-10-2023 15:15-0500 Systolic blood pressure 102 mm[Hg] Ulices Padilla MD Work Phone: [facility] 12-15-2022 09:00-0400 Body weight 67.31 kg Hayley Prabhakar APRN.CNM Work Phone: [facility] 12-15-2022 09:00-0400 Diastolic blood pressure 60 mm[Hg] Hayley Prabhakar APRN.CNM Work Phone: [facility] 12-15-2022 09:00-0400 Systolic blood pressure 110 mm[Hg] Hayley Aki STAMPER BLOCKER.CNM Work Phone: [facility] 10-13-2022 08:59-0400 Body weight 65.77 kg Radha Plotmakenzie STAMPER BLOCKER.CNM Work Phone: [facility] 10-13-2022 08:59-0400 Diastolic blood pressure 62 mm[Hg] Radha Plotts STAMPER BLOCKER.CNM Work Phone: [facility] 10-13-2022 08:59-0400 Systolic blood pressure 98 mm[Hg] Radha Plotts STAMPER BLOCKER.CNM Work Phone: [facility] 09-15-2022 09:57-0400 Body weight 67.59 kg Radha Plotts STAMPER BLOCKER.CNM Work Phone: [facility] 09-15-2022 09:57-0400 Diastolic blood pressure 66 mm[Hg] Radha Plotts STAMPER BLOCKER.CNM Work Phone: [facility] 09-15-2022 09:57-0400 Systolic blood pressure 108 mm[Hg] Radha Plotts STAMPER BLOCKER.CNM Work Phone: [facility] 07-23-2022 09:21-0400 Body temperature 100.71 [degF] Emiliano Sowmya STAMPER BLOCKER.DEPUTY CONTROLLER Work Phone: [facility] 07-23-2022 09:21-0400 Body weight 71.58 kg Emiliano Deng STAMPER BLOCKER.DEPUTY CONTROLLER Work Phone: [facility] 07-23-2022 09:21-0400 Diastolic blood pressure 80 mm[Hg] Emiliano Pendlegee STAMPER BLOCKER.DEPUTY CONTROLLER Work Phone: [facility] 07-23-2022 09:21-0400 Heart rate 108 /min Emiliano Deng STAMPER BLOCKER.DEPUTY CONTROLLER Work Phone: [facility] 07-23-2022 09:21-0400 Respiratory rate 20 /min Emiliano Deng STAMPER BLOCKER.DEPUTY CONTROLLER Work Phone: [facility] 07-23-2022 [id number] SaO2% (BldA) [Mass fraction] 97 % Emiliano Deng APRN.DEPUTY CONTROLLER Work Phone: [facility] 07-23-2022 09:21-0400 Systolic blood pressure 112 mm[Hg] Emiliano Deng APRN.CNP Work Phone: [facility] 12-10-2019 13:17-0400 Body height 165.74 cm Tayler Naidu LPN [facility], [facility].; [facility] [employer] [facility], [employer]. 12-10-2019 13:17-0400 Body mass index (BMI) [Ratio] 24.77 kg/m2 Tayler Naidu LPN [facility], [facility].; [facility], [facility]. 12-10-2019 13:17-0400 Body surface area Derived from formula 1.76 m2 Tayler Naidu LPN [facility], [facility].; Ravalli Morphy [facility], [facility]. 12-10-2019 13:17-0400 Body weight 68.04 kg Tayler Naidu LPN [facility], [facility].; Abll Morphy [facility], [employer]. 12-10-2019 13:17-0400 Diastolic blood pressure 81 mm[Hg] Tayler Naidu LPN [facility], [facility].; [facility], [facility]. Encounters Encounter Date Encounter Type Care Provider Facility Start: 03-22-2023 End: 03-22-2023 ambulatory SELF Facility:[facility] Start: 03-16-2023 End: 03-16-2023 ambulatory ACACIA VILLA Facility:[facility] Start: 03-09-2023 End: 03-09-2023 ambulatory ULICES PADILLA Facility:[facility] Start: 03-01-2023 End: 03-02-2023 ambulatory ULICES PADILLA Facility:[facility] Start: 02-16-2023 End: 02-16-2023 ambulatory HAYLEY PRABHAKAR Facility:[facility] Start: 02-02-2023 End: 02-02-2023 ambulatory HAYLEY PRABHAKAR Facility:[facility] Start: 01-22-2023 Telephone encounter Kourtney gilliam MD Work Phone: OB/Gynecology Procedures Date Procedure Procedure Detail Performing Clinician Start: 01-10-2023 URINE OB DIP B/O Juliane Padilla MD Work Phone: Start: 10-13-2022 URINE OB DIP B/O Felipe Esteban STAMPER BLOCKER.CNM Work Phone: Start: 09-15-2022 URINE OB DIP B/O Felipe Esteban STAMPER BLOCKER.CNM Work Phone: Start: 08-21-2022 Antibody screen DERICKSANGITA ESTEBAN Plan of Treatment Date Care Activity Detail Author Start: 01-10-2033 Urine microalbumin profile DTaP,Tdap,Td Vaccine (8 - Td or Tdap) [facility] Start: 09-18-2028 Urine microalbumin profile [facility] Start: 08-21-2025 PAP TESTING PAP TESTING [facility] Start: 08-22-2023 CHLAMYDIA SCREENING (18-24) CHLAMYDIA SCREENING (18-24) [facility] Start: 08-22-2023 GC (GONORRHEA) SCREE LILIA (18-24) GC (GONORRHEA) SCREENING (18-24) [facility] Start: 12-15-2022 End: 03-16-2023 CBC W Auto Differential panel - Blood CBC + DIFF Lab Routine with history of section, antepartum 24 weeks gestation of Expected: 12/15/2022, Expires: 03/16/2023 [facility] Work Phone: Immunizations Immunization Date Immunization Notes Care Provider [facility] 01-10-2023 tetanus toxoid, redu mayito diphtheria toxoid, and acellular pertussis vaccine, adsorbed Ulices Padilla MD Work Phone: [facility] 03-03-2021 influenza, seasonal, injectable, preservative free Ulices Padilla MD Work Phone: [facility] 03-03-2021 influenza virus vacc ine, unspecified formulation Hayley Prabhakar STAMPER BLOCKER.CNM Work Phone: [facility] 09-18-2018 tetanus toxoid, redu mayito diphtheria toxoid, and acellular pertussis vaccine, adsorbed Emiliano Deng STAMPER BLOCKER.DEPUTY CONTROLLER Work Phone: [facility] Work Phone: 09-08-2015 meningococcal polysaccharide (groups A, C, Y and W-135) diphtheria toxoid conjugate vaccine (MCV4P) Ulices Padilla MD Work Phone: [facility] Payers Date Payer Category Payer Unknown [id number] 2021 Unknown [id number] 1998 Unknown [id number] 1998 Unknown [id number] 1998 Unknown [id number] 1998 Unknown [id number] Unknown [id number] Unknown [id number] Social History Date Type Detail Facility Start: 07-23-2022 Tobacco smoking stat [facility] Never smoked tobacco [facility] Start: 07-23-2022 Tobacco use and exposure Smoke less tobacco non-user [facility] Start: 07-23-2022 End: 01-10-2023 Alcohol intake Lifetime non-drinker (finding) [facility] Start: 01-23-2019 History SDOH Alcohol Frequency 1 [facility] Start: 2000 Sex Assigned At Not on file [facility] Start: 08-14-2022 Education 16 [facility] Start: 07-08-2022 [facility] Start: 01-23-2019 End: 08-14-2022 History of Social function [facility] Start: 01-23-2019 End: 08-14-2022 Alcohol Use Disorder Identification Test - Consumption [AUDIT-C] [facility] How often to you hav e a drink containing alcohol? Never [facility] Average Number of Drinks Not on file [facility] Tobacco/Smoke Exposure: Tobacco/ Smoke Exposure: ; None. [facility] [employer]. Female [employer] Work Phone: None [employer] Work Phone: Goals Date Patient Goal Desired Activity /State Personal health goal Clinical Notes 10-07-2018 to 03-09-2023 Telephone Encounter - Lavinia Vallejo LPN - 01/26/2023 10:33 AM ESTTelephone Encounter - Lavinia Vallejo LPN - 01/22/2023 11:58 AM ESTCarVivian valentine Ma - 01/10/2023 3:16 PM ESTPatient Instructions Note Date & Type Note Facility 03-09-2023 Note HNO ID: [id number] Author: CHIP ACEVEDO APRN.DEPUTY CONTROLLER Service: ? Author Type: Nurse Practitioner Type: Progress Notes Filed: 03/09/2023 10:15 Note Text: Subjective HPI HPI Jacinto BACON is a 22 year old female who presents today for CC of cough, fever, st, ear pain. This started 3 days ago. Has tried otc medication for relief. Symptoms are worsened by nothing. Risk factors sick exposures at home. 9 months /not high risk . Denies abdominal pain and vaginal bleeding. Ob wanted patient tested for flu. .Patient presents with: Cough: Cough, fever, ST and bilateral ear pain x 3 days PAST MEDICAL HISTORY Diagnosis Date Anxiety/depression Mental disorder PAST SURGICAL HISTORY Procedure Laterality Date SNGL 12/03/2018 ALLERGIES Seasonal Allergies MEDICATIONS famotidine (PEPCID) 40 mg tablet Take 1 tablet by mouth once daily. prental multivitamin 27 mg iron- 800 mcg tablet Take 1 tablet by mouth once daily. acetaminophen (TYLENOL) 325 mg tablet Take 650 mg by mouth every 6 hours as needed. FAMILY HISTORY Problem Relation Age of Onset No Known Problems Mother No Known Problems Father No Known Problems Brother No Known Problems Maternal Grandmother No Known Problems Maternal Grandfather No Known Problems Paternal Grandmother Blood Clots Paternal Grandfather Lymphoma Paternal Grandfather No Known Problems Son Social History Tobacco Use Smoking status: Never Smokeless tobacco: Never Vaping Use Vaping Use: Never used Substance Use Topics Alcohol use: Never Drug use: Never Review of Systems Constitutional: Positive for fever. HENT: Positive for congestion, ear pain and sore throat. Negative for ear discharge and nosebleeds. Respiratory: Positive for cough. Negative for shortness of breath and wheezing. Gastrointestinal: Negative for abdominal pain, diarrhea and vomiting. Musculoskeletal: Negative for neck pain. Skin: Negative for itching and rash. Objective Blood pressure 118/82, pulse 97, temperature 36.7 ?C (98.1 ?F), temperature source Tympanic, resp. rate 18, weight 69.8 kg (153 lb 12.8 oz), last menstrual period 06/24/2022, SpO2 99%. Physical Exam Constitutional: General: She is not in acute distress. Appearance: She is not toxic-appearing or diaphoretic. HENT: Head: Normocephalic and atraumatic. Right Ear: Hearing, tympanic membrane, ear canal and external ear normal. Left Ear: Hearing, tympanic membrane, ear canal and external ear normal. Nose: Nose normal. Mouth/Throat: Pharynx: Uvula midline. No pharyngeal swelling, oropharyngeal exudate, posterior oropharyngeal erythema or uvula swelling. Eyes: General: Lids are normal. No scleral icterus. Right eye: No discharge. Left eye: No discharge. Conjunctiva/sclera: Conjunctivae normal. Pupils: Pupils are equal, round, and reactive to light. Neck: Trachea: Trachea normal. Cardiovascular: Rate and Rhythm: Normal rate and regular rhythm. Heart sounds: Normal heart sounds. Pulmonary: Effort: Pulmonary effort is normal. Breath sounds: Normal breath sounds. Musculoskeletal: Cervical back: Normal range of motion and neck supple. Lymphadenopathy: Cervical: No cervical adenopathy. Right cervical: No superficial cervical adenopathy. Left cervical: No superficial cervical adenopathy. Skin: Findings: No rash. Neurological: Mental Status: She is alert and oriented to person, place, and time. ASSESSMENT/PLAN: 1. Influenza B - ICD9: 487.1, ICD10: J10.1 (primary diagnosis) Day 3 of illness, past treatment window -discussed expected course -discussed supportive care -discussed red flags and reasons for f/u -discussed contagiousness, reason/when close family members should f/u, and whom to avoid -f/u in 3-5 days if symptoms worsening -notify natural resources extension educator of positive test. 2. URI, acute - ICD9: 465.9, ICD10: J06.9 - Discussed viral etiology and rationale for treatment. - Symptomatic treatment with prn analgesia - Supportive care with fluids and rest - INFLUENZA AANDB MOLECULAR (POC) Chpi Acevedo APRN.MONTRELL [facility] 01-26-2023 Miscellaneous Notes Formattin g of this note might be different from the original. FMLA paperwork completed. 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 Copy scanned into EMR and filed in [employer] suite. Lavinia Vallejo LPN FMLA paperwork completed and placed on providers desk for signature. Lavinia Vallejo LPN documented in this encounter [facility] 01-10-2023 Note HNO ID: [id number] Author: Vivian Woodard Ma Service: ? Author Type: ? Type: Progress Notes Filed: 01/10/2023 4:25 PM Note Text: Patient identified by name and date of . Jacinto BACON presents today for a vaccination of Tdap. Patient denies an allergy to latex: yes Patient denies a severe (life-threatening) allergy to a previous dose of Tdap, DTP, DTaP, DT or Td vaccine. Yes Patient denies history of epilepsy or neurological problems: Yes Patient is afebrile and denies being moderately or severely ill: Yes Patient denies history of Guillain-Brimfield Syndrome (a severe paralytic illness): Yes Tdap Adacel injection was given without incident. See immunizations for details of immunizations administered today. VIS sheet provided: Yes Provider Dr Padilla was present in office at time of injection. Vivian Woodard Ma [facility] 01-10-2023 Miscellaneous Notes Formattin g of this note might be different from the original. RR- VB No. LOF No. CTXS No. Movement: present. Other c/o: No. Medication list reviewed. Physical Exam See Flow Sheet Abd: soft, nontender, gravid Ext: edema: 1+ A/P 28w4d Estimated Date of Delivery: 03/31/23 Labs: 28 week labs. tdap today reviewed rsv vaccine and timing for her consideration previous c/s for breech, desires repeat, will schedule Ulices Padilla M.D. documented in this encounter [facility] 01-10-2023 History of Presen t illness Narrative Patient identified by name and date of . Jacinto BACON presents today for a vaccination of Tdap. Patient denies an allergy to latex: yes Patient denies a severe (life-threatening) allergy to a previous dose of Tdap, DTP, DTaP, DT or Td vaccine. Yes Patient denies history of epilepsy or neurological problems: Yes Patient is afebrile and denies being moderately or severely ill: Yes Patient denies history of Guillain-Brimfield Syndrome (a severe paralytic illness): Yes Tdap Adacel injection was given without incident. See immunizations for details of immunizations administered today. VIS sheet provided: Yes Provider Dr Padilla was present in office at time of injection. Vivian Woodard Ma documented in this encounter [facility] 01-10-2023 Instructions Vivian Woodard Ma - 01/10/2023 2:55 PM EST SEQUENTIAL SCREENINGS The [facility] offers sequential screenings for women who are interested in screenings for chromosomal abnormalities and certain defects during a . The sequential screen combines ultrasound and blood tests to determine the risk of chromosomal abnormalities, including Down's Syndrome (Trisomy 21) and Trisomy 18, as well as open neural tube defects including spina bifida. Ultrasound examination is performed between 11 weeks and 13 weeks gestational age. Blood tests are drawn after the ultrasound and again later in the between 15 and 21 weeks gestational age. Please let your physician know if you are interested in this testing. It will require an appointment with our photovoltaic technician. This is not an ultrasound performed by a physician in our office during a routine visit. SIGNS AND SYMPTOMS OF LABOR 1. Contractions every 10 minutes or more often 2. Clear, pink, or brownish fluid (water) leaking from vagina 3. Feeling that baby is pushing down, pressure 4. Low, dull backache 5. Cramps that feel like a period 6. Cramps with or without diarrhea If you notice any of the above symptoms, contact our office at [phone] and ask to speak with a nurse. After hours, you can call doctors registry at [phone] OR call [facility] at [phone] and ask to have the doctor performance management consultant paged. If you consider this an emergency, dial 9-- or go to your nearest emergency department. NEED HELP? Are you dealing with a violent or abusive relationship? Are you a victim of rape or sexual assult? Call [facility] ([place]) 24 hour Crisis Hotline: 943.794.6064 or 898-478-7393. MANUAL Your Guide to a Healthy manual is now on-line. Visit [email or web address] to download your free copy documented in this encounter [facility] 12-15-2022 Miscellaneous Notes Formattin g of this note might be different from the original. STEVE-S: Jacinto BACON is a 22 year old female who presents at 24w6d with ALBERTO:03/31/2023, by Last Menstrual Period for a routine visit. Good FM. Denies headache, visual changes, chest pain, shortness of breath, vaginal bleeding, leakage of fluid, or dysuria. Feeling well, no complaints. Heartburn, tums do not work, drinking milk, yogurt and nothing is helping. Decreased food intake due to heartburn. O: See flow sheet Gen: No apparent distress Abd: Gravid, nontender ASSESSMENT/PLAN: 1. with history of section, antepartum 2. 24 weeks gestation of P: 1) PTL precautions reviewed and when to call 2) RTO in 4 weeks 3) Pepcid 40mg PO once daily for heartburn. Reviewed increased protein and other ways to help improve eating and decrease heartburn. 4) Continue to monitor fundal height and limited weight gain. 5) 28 weeks labs next visit. Reviewed Tdap at 28 week. 6) Info given on influenza vaccine and planning to get next visit. Hayleycory Prabhakar APRN.CNM documented in this encounter [facility] 12-15-2022 Instructions Nick Reddy Cma - 12/15/2022 8:53 AM EDT SEQUENTIAL SCREENINGS The [facility] offers sequential screenings for women who are interested in screenings for chromosomal abnormalities and certain defects during a . The sequential screen combines ultrasound and blood tests to determine the risk of chromosomal abnormalities, including Down's Syndrome (Trisomy 21) and Trisomy 18, as well as open neural tube defects including spina bifida. Ultrasound examination is performed between 11 weeks and 13 weeks gestational age. Blood tests are drawn after the ultrasound and again later in the between 15 and 21 weeks gestational age. Please let your physician know if you are interested in this testing. It will require an appointment with our photovoltaic technician. This is not an ultrasound performed by a physician in our office during a routine visit. SIGNS AND SYMPTOMS OF LABOR 1. Contractions every 10 minutes or more often 2. Clear, pink, or brownish fluid (water) leaking from vagina 3. Feeling that baby is pushing down, pressure 4. Low, dull backache 5. Cramps that feel like a period 6. Cramps with or without diarrhea If you notice any of the above symptoms, contact our office at [phone] and ask to speak with a nurse. After hours, you can call doctors registry at [phone] OR call [facility] at [phone] and ask to have the doctor performance management consultant paged. If you consider this an emergency, dial 9-1-2 or go to your nearest emergency department. NEED HELP? Are you dealing with a violent or abusive relationship? Are you a victim of rape or sexual assult? Call [facility] ([place]) 24 hour Crisis Hotline: 615.146.9792 or 067-299-6390. MANUAL Your Guide to a Healthy manual is now on-line. Visit [email or web address] to download your free copy documented in this encounter [facility] 10-13-2022 Miscellaneous Notes Formattin g of this note might be different from the original. Jacinto BACON is a 22 year old female who presents at 15w6d for a routine visit. No movement to date. Increased anxiety over no movement and lack of weight gain. Reviewed daily diet with patient. No meal skipping. Has increased appetite. No N/V. Suggested trying to drink a protein shake a day. Denies headache, visual changes, chest pain, shortness of breath, vaginal bleeding, leakage of fluid, or dysuria. Feeling well, no complaints. Support provided. Size appropriate for dates. 0 lbs TWG. PTL precautions reviewed. RTC in 4 weeks for ORTIZ with anatomy US. Radha Esteban APRN.CNM documented in this encounter [facility] 10-13-2022 Instructions Nick Reddy Cma 10/13/2022 8:53 AM EDT SEQUENTIAL SCREENINGS The [facility] offers sequential screenings for women who are interested in screenings for chromosomal abnormalities and certain defects during a . The sequential screen combines ultrasound and blood tests to determine the risk of chromosomal abnormalities, including Down's Syndrome (Trisomy 21) and Trisomy 18, as well as open neural tube defects including spina bifida. Ultrasound examination is performed between 11 weeks and 13 weeks gestational age. Blood tests are drawn after the ultrasound and again later in the between 15 and 21 weeks gestational age. Please let your physician know if you are interested in this testing. It will require an appointment with our photovoltaic technician. This is not an ultrasound performed by a physician in our office during a routine visit. SIGNS AND SYMPTOMS OF LABOR 1. Contractions every 10 minutes or more often 2. Clear, pink, or brownish fluid (water) leaking from vagina 3. Feeling that baby is pushing down, pressure 4. Low, dull backache 5. Cramps that feel like a period 6. Cramps with or without diarrhea If you notice any of the above symptoms, contact our office at [phone] and ask to speak with a nurse. After hours, you can call [facility] at [phone] OR call [facility] at [phone] and ask to have the doctor performance management consultant paged. If you consider this an emergency, dial 9--1 or go to your nearest emergency department. NEED HELP? Are you dealing with a violent or abusive relationship? Are you a victim of rape or sexual assult? Call [facility] ([place]) 24 hour Crisis Hotline: 140.177.5210 or 331-698-0750. MANUAL Your Guide to a Healthy manual is now on-line. Visit [email or web address] to download your free copy documented in this encounter [facility] 10-12-2022 Note HNO ID: [id number] Author: Hayley Prabhakar APRN.CNM Service: ? Author Type: Electronic Health Records Specialist Type: Progress Notes Filed: 10/12/2022 9:43 AM Note Text: OB point of care ultrasound was performed. See imaging tab for details. Hayley Prabhakar APRN.CNM [facility] 10-12-2022 History of Presen t illness Narrative OB point of care ultrasound was performed. See imaging tab for details. Hayley Prabhakar APRN.CNM documented in this encounter [facility] 09-15-2022 Miscellaneous Notes Formattin g of this note might be different from the original. Jacinto BACON is a 22 year old female who presents at 11w6d Estimated Date of Delivery: 03/31/23 for a routine visit. Appetite increasing and energy improving. Denies headache, visual changes, chest pain, shortness of breath, vaginal bleeding, leakage of fluid, or dysuria. Feeling well, no complaints. Size equal to dates. -5 lbs TWG. PTL/Bleeding precautions reviewed. RTC in 4 weeks or sooner if needed. Radha Esteban APRN.CNM documented in this encounter [facility] 09-15-2022 Instructions Nick Reddy Cma - 09/15/2022 9:51 AM EDT SEQUENTIAL SCREENINGS The [facility] offers sequential screenings for women who are interested in screenings for chromosomal abnormalities and certain defects during a . The sequential screen combines ultrasound and blood tests to determine the risk of chromosomal abnormalities, including Down's Syndrome (Trisomy 21) and Trisomy 18, as well as open neural tube defects including spina bifida. Ultrasound examination is performed between 11 weeks and 13 weeks gestational age. Blood tests are drawn after the ultrasound and again later in the between 15 and 21 weeks gestational age. Please let your physician know if you are interested in this testing. It will require an appointment with our photovoltaic technician. This is not an ultrasound performed by a physician in our office during a routine visit. SIGNS AND SYMPTOMS OF LABOR 1. Contractions every 10 minutes or more often 2. Clear, pink, or brownish fluid (water) leaking from vagina 3. Feeling that baby is pushing down, pressure 4. Low, dull backache 5. Cramps that feel like a period 6. Cramps with or without diarrhea If you notice any of the above symptoms, contact our office at [phone] and ask to speak with a nurse. After hours, you can call doctors registry at [phone] OR call [facility] at [phone] and ask to have the doctor performance management consultant paged. If you consider this an emergency, dial 9-1-6 or go to your nearest emergency department. NEED HELP? Are you dealing with a violent or abusive relationship? Are you a victim of rape or sexual assult? Call [facility] ([place]) 24 hour Crisis Hotline: 672.146.1919 or 232-795-0846. MANUAL Your Guide to a Healthy manual is now on-line. Visit [email or web address] to download your free copy documented in this encounter [facility] 08-21-2022 Note HNO ID: [id number] Author: Hayley Prabhakar APRN.CNM Service: ? Author Type: Electronic Health Records Specialist Type: Progress Notes Filed: 08/21/2022 11:14 AM Note Text: INITIAL OB ASSESSMENT OB Provider: Hayley Prabhakar CNM HPI: Jacinto is a 21 year old White here to establish Obstetrical Care. Patient's last menstrual period was 06/24/2022 (exact date). from OB Dating Form. Cycles regular was planned Complaints: nausea and vomiting twice in am. OB History T1 L1 SAB0 IAB0 Ectopic0 Multiple0 Live Births1 Previous history: Prior : yes x 1 due to breech presentation History of 4th degree laceration: No History of shoulder dystocia: No History of Hypertensive disorders including pre-eclampsia, chronic hypertension or gestational hypertension: No History of gestational diabetes: No Patient's Risk Screening for delivery: MEDICAL/PSYCHOSOCIAL HISTORY: History of hemorrhage or bleeding concerns: No Thyroid Disease: No History of chronic hypertension: No History of pre-existing diabetes: No ABO/RH(D) Date Value Ref Range Status 06/13/2018 O POSITIVE Final No weight on file for this encounter. History of abnormal pap: No Prior treatment for cervical dysplasia: none. History of STDs: None Tobacco use: No Caffeine use: No Drug use: No Alcohol use: No Multivitamin with Folic acid: Yes Pentecostal or heritage: No Would refuse blood transfusion if medically necessary: No Are you currently employed? 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 I don't have enough money to pay my bills: Never Within the past 12 months, have you worried that your food would run out before you had money to buy more: Never In the past 12 months, has lack of reliable transportation kept you from going to medical appointments or work, or from keeping things needed for daily living: Never In the past 12 months, have you had any concerns about having a place to live, or about the condition or quality of your housing: Never Are there any cultural or spiritual needs we should be aware of: No Depression: denies symptoms of depression. 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 Levonorgestrel-Ethinyl Estrad (ALESSE) 0.1mg - 20mcg per tablet Take 1 tablet by mouth once daily. (Patient not taking: Reported on 07/23/2022) 1 Package 12 acetaminophen (TYLENOL) 325 mg tablet Take 650 mg by mouth every 6 hours as needed. No current facility-administered medications for this visit. Allergies As of Date: 08/21/2022 Allergen Noted Reaction SEASONAL ALLERGIES 05/09/2018 Other: See Comments Fully Assessed 08/14/2022 Does patient have penicillin allergy: No REVIEW OF SYSTEMS: GENERAL: Negative for: Fever or Chills HEENT: Negative for: Headache, Impaired Vision, Ringing in Ears, Nosebleeds NECK: Negative for: Swelling, Pain, Stiffness RESPIRATORY: Negative for: Cough, Shortness of breath, Wheezing GASTROINTESTINAL: Negative for: Heartburn, Constipation, Diarrhea, Blood in stool, Vomiting MUSCULOSKELETAL: Negative for: Muscle or joint pain, stiffness, Joint swelling NEUROLOGIC/PSYCHIATRIC: Negative for: Weakness, Paralysis, Numbness, Tingling, Tremor, Anxiety, Depression, Memory loss SKIN: Negative for: Rash, Itching GENITOURINARY: Negative for: vaginal itching, vaginal discharge, hematuria or dysuria PHYSICAL EXAM: LMP 06/24/2022 BP 106/64 Ht 5' 5 (1.651 m) Wt 154 lb (69.9 kg) LMP 06/24/2022 (Exact Date) BMI 25.63 kg/m? GENERAL: pleasant in no apparent distress DERMATOLOGY: Normal, without lesions, non-icteric, and non-hirsute NECK: Supple, full range of motion, no adenopathy, and thyroid normal CHEST: Clear to auscultation, Normal inspiratory effort, Regular rate and rhythm, and No murmurs, clicks, rubs or gallops BREAST: soft, non-tender, symmetric, no domin (more content not included)... [facility] 08-14-2022 Note HNO ID: [id number] Author: Laila Jimenez RN Service: ? Author Type: ? Type: Progress Notes Filed: 08/14/2022 11:29 AM Note Text: # 1 - Date: 12/03/18, Sex: Male, Weight: 7 lb 11 oz (3.487 kg), GA: 39w1d, Delivery: , Low Transverse, Apgar1: None, Apgar5: None, Living: Living, Comments: Primary c/s for rosi breech, EBL 800ml, Apgars 8/9 # 2 - Date: None, Sex: None, Weight: None, GA: None, Delivery: None, Apgar1: None, Apgar5: None, Living: None, Comments: None [facility] 08-14-2022 Miscellaneous Notes Formattin g of this note might be different from the original. DISTANCE HEALTH VISIT This Team Access Model visit is a phone encounter. It required patient-provider interaction for the medical decision making as documented below. Patient has a history of a for rosi breech presentation. She is considering a . EMMIs on and ordered and patient is asked to watch these prior to her new OB appointment with Hayley Prabhakar.Pt has a history of anxiety/depression diagnosed in 2018. She has never taken any medication to treat it. She denies any depression. Discussed increased risks of depression during and and importance of reporting the development or worsening of symptoms should they occur. Pt denies ever having any suicidal thoughts or tendencies or thoughts of hurting others. Patient considering aneuploidy screening. Contact information for [facility] given to patient to check on insurance coverage. Patient declined genetic carrier screening testing.Laila Jimenez RN documented in this encounter [facility] 08-14-2022 History of Presen t illness Narrative # 1 - Date: 12/03/18, Sex: Male, Weight: 7 lb 11 oz (3.487 kg), GA: 39w1d, Delivery: , Low Transverse, Apgar1: None, Apgar5: None, Living: Living, Comments: Primary c/s for rosi breech, EBL 800ml, Apgars 8/9 # 2 - Date: None, Sex: None, Weight: None, GA: None, Delivery: None, Apgar1: None, Apgar5: None, Living: None, Comments: None documented in this encounter [facility] 08-09-2022 Miscellaneous Notes Formattin g of this note might be different from the original. Patient scheduled Left message for patient to return phone call. Patient has an appointment with Loi Prabhakar for NOB appointment. Please schedule PNOB appointment. documented in this encounter [facility] 07-23-2022 Note HNO ID: [id number] Author: Emiliano Deng APRN.DEPUTY CONTROLLER Service: ? Author Type: Nurse Practitioner Type: Progress Notes Filed: 07/23/2022 9:44 AM Note Text: Subjective HPI Nontoxic-appearing female presents urgent care chief complaint flulike symptoms. Duration of symptoms 2 days Associated symptoms with today's chief complaint are on and off headache, muscle aches, fatigue, nonproductive cough, diarrhea, ear pain, and fever. Patient stated symptoms started abruptly. Patient states they have used kjox-zmt-lzgfzza medication with some success. Patient states they were in contact with individuals who similar signs symptoms. Patient denies any pain at this time. Patient denies any visual changes, visual disturbance, shortness of breath, rash, exercise intolerance, pleuritic pain, productive cough, abdominal pain, nausea, vomiting, chest pain, or change in bowel or bladder habits. Past medical history prescription medication use allergies reviewed. .Patient presents with: Sore Throat: Right ear pain x 2 days PAST MEDICAL HISTORY Diagnosis Date Anxiety Mental disorder PAST SURGICAL HISTORY Procedure Laterality Date SNGL 12/03/2018 ALLERGIES Seasonal Allergies MEDICATIONS acetaminophen (TYLENOL) 325 mg tablet Take 650 mg by mouth every 6 hours as needed. Levonorgestrel-Ethinyl Estrad (ALESSE) 0.1mg - 20mcg per tablet Take 1 tablet by mouth once daily. (Patient not taking: Reported on 07/23/2022) FAMILY HISTORY Problem Relation Age of Onset No Known Problems Mother No Known Problems Father No Known Problems Brother No Known Problems Maternal Grandmother No Known Problems Maternal Grandfather No Known Problems Paternal Grandmother Blood Clots Paternal Grandfather Social History Tobacco Use Smoking status: Never Smokeless tobacco: Never Substance Use Topics Alcohol use: Never Drug use: Never BP 112/80 Pulse 108 Temp (!) 38.2 ?C (100.7 ?F) Resp 20 Wt 71.6 kg (157 lb 12.8 oz) LMP 03/04/2018 (Approximate) SpO2 97% BMI 26.26 kg/m? Review of Systems Constitutional: Positive for chills, fever and malaise/fatigue. HENT: Positive for congestion and sore throat. Negative for ear discharge, ear pain and sinus pain. Eyes: Negative for blurred vision, pain, discharge and redness. Respiratory: Positive for cough. Negative for hemoptysis, sputum production, shortness of breath, wheezing and stridor. Cardiovascular: Negative for chest pain. Gastrointestinal: Positive for diarrhea. Negative for abdominal pain, nausea and vomiting. Musculoskeletal: Positive for myalgias. Skin: Negative for itching and rash. Neurological: Positive for headaches. Negative for dizziness. Objective Physical Exam Constitutional: General: She is not in acute distress. Appearance: She is not diaphoretic. HENT: Head: Normocephalic. Right Ear: Tympanic membrane, ear canal and external ear normal. Left Ear: Tympanic membrane, ear canal and external ear normal. Nose: Congestion present. Mouth/Throat: Mouth: Mucous membranes are moist. Pharynx: Oropharynx is clear. No oropharyngeal exudate or posterior oropharyngeal erythema. Eyes: Conjunctiva/sclera: Conjunctivae normal. Pupils: Pupils are equal, round, and reactive to light. Cardiovascular: Rate and Rhythm: Normal rate and regular rhythm. Heart sounds: Normal heart sounds. Pulmonary: Effort: Pulmonary effort is normal. No tachypnea, accessory muscle usage or respiratory distress. Breath sounds: Normal breath sounds. No stridor. No wheezing, rhonchi or rales. Abdominal: Palpations: Abdomen is soft. Tenderness: There is no abdominal tenderness. There is no guarding or rebound. Musculoskeletal: Cervical back: Normal range of motion and neck supple. No rigidity or tenderness. Lymphadenopathy: Cervical: No cervical adenopathy. Skin: General: Skin is warm and dry. Neurological: Mental Status: She is alert and oriented to person, place, and time. ASSESSMENT/PLAN: 1. Sore throat - ICD9: 462, ICD10: J02.9 (primary diagnosis) - STREP A MOLECULAR (POC) 2. Viral illness - ICD9: 079.99, ICD10: B34.9 Diagnosed with viral illness. Strep was negative. Suspicious for COVID-19 with patient's symptoms. PCR testing offered declined testing today. States will do a home test. Red flags proper elevation discussed. Patient was educated on supportive therapies. Patient will follow up with primary care provider as needed. Patient was instructed to immediately proceed to emergency room for any new, worsening, or symptoms lasting longer than anticipated. The patient's clinical presentation is otherwise unremarkable at this time. Based on exam and clinical finding, the patient is stable for discharge. Plan of care was discussed with patient. Patient verbalizes understanding and agrees to plan of care. This note was generated using Admazely software. It may contain errors in wording, (more content not included)... [facility] 07-23-2022 History of Presen t illness Narrative Subjective HPI Nontoxic-appearing female presents urgent care chief complaint flulike symptoms. Duration of symptoms 2 days Associated symptoms with today's chief complaint are on and off headache, muscle aches, fatigue, nonproductive cough, diarrhea, ear pain, and fever. Patient stated symptoms started abruptly. Patient states they have used gynv-suf-zgnniaw medication with some success. Patient states they were in contact with individuals who similar signs symptoms. Patient denies any pain at this time. Patient denies any visual changes, visual disturbance, shortness of breath, rash, exercise intolerance, pleuritic pain, productive cough, abdominal pain, nausea, vomiting, chest pain, or change in bowel or bladder habits. Past medical history prescription medication use allergies reviewed. .Patient presents with: Sore Throat: Right ear pain x 2 days PAST MEDICAL HISTORY Diagnosis Date Anxiety Mental disorder PAST SURGICAL HISTORY Procedure Laterality Date SNGL 12/03/2018 ALLERGIES Seasonal Allergies MEDICATIONS acetaminophen (TYLENOL) 325 mg tablet Take 650 mg by mouth every 6 hours as needed. Levonorgestrel-Ethinyl Estrad (ALESSE) 0.1mg - 20mcg per tablet Take 1 tablet by mouth once daily. (Patient not taking: Reported on 07/23/2022) FAMILY HISTORY Problem Relation Age of Onset No Known Problems Mother No Known Problems Father No Known Problems Brother No Known Problems Maternal Grandmother No Known Problems Maternal Grandfather No Known Problems Paternal Grandmother Blood Clots Paternal Grandfather Social History Tobacco Use Smoking status: Never Smokeless tobacco: Never Substance Use Topics Alcohol use: Never Drug use: Never BP 112/80 Pulse 108 Temp (!) 38.2 C (100.7 F) Resp 20 Wt 71.6 kg (157 lb 12.8 oz) LMP 03/04/2018 (Approximate) SpO2 97% BMI 26.26 kg/m Review of Systems Constitutional: Positive for chills, fever and malaise/fatigue. HENT: Positive for congestion and sore throat. Negative for ear discharge, ear pain and sinus pain. Eyes: Negative for blurred vision, pain, discharge and redness. Respiratory: Positive for cough. Negative for hemoptysis, sputum production, shortness of breath, wheezing and stridor. Cardiovascular: Negative for chest pain. Gastrointestinal: Positive for diarrhea. Negative for abdominal pain, nausea and vomiting. Musculoskeletal: Positive for myalgias. Skin: Negative for itching and rash. Neurological: Positive for headaches. Negative for dizziness. Objective Physical Exam Constitutional: General: She is not in acute distress. Appearance: She is not diaphoretic. HENT: Head: Normocephalic. Right Ear: Tympanic membrane, ear canal and external ear normal. Left Ear: Tympanic membrane, ear canal and external ear normal. Nose: Congestion present. Mouth/Throat: Mouth: Mucous membranes are moist. Pharynx: Oropharynx is clear. No oropharyngeal exudate or posterior oropharyngeal erythema. Eyes: Conjunctiva/sclera: Conjunctivae normal. Pupils: Pupils are equal, round, and reactive to light. Cardiovascular: Rate and Rhythm: Normal rate and regular rhythm. Heart sounds: Normal heart sounds. Pulmonary: Effort: Pulmonary effort is normal. No tachypnea, accessory muscle usage or respiratory distress. Breath sounds: Normal breath sounds. No stridor. No wheezing, rhonchi or rales. Abdominal: Palpations: Abdomen is soft. Tenderness: There is no abdominal tenderness. There is no guarding or rebound. Musculoskeletal: Cervical back: Normal range of motion and neck supple. No rigidity or tenderness. Lymphadenopathy: Cervical: No cervical adenopathy. Skin: General: Skin is warm and dry. Neurological: Mental Status: She is alert and oriented to person, place, and time. ASSESSMENT/PLAN: 1. Sore throat - ICD9: 462, ICD10: J02.9 (primary diagnosis) - STREP A MOLECULAR (POC) 2. Viral illness - ICD9: 079.99, ICD10: B34.9 Diagnosed with viral illness. Strep was negative. Suspicious for COVID-19 with patient's symptoms. PCR testing offered declined testing today. States will do a home test. Red flags proper elevation discussed. Patient was educated on supportive therapies. Patient will follow up with primary care provider as needed. Patient was instructed to immediately proceed to emergency room for any new, worsening, or symptoms lasting longer than anticipated. The patient's clinical presentation is otherwise unremarkable at this time. Based on exam and clinical finding, the patient is stable for discharge. Plan of care was discussed with patient. Patient verbalizes understanding and agrees to plan of care. This note was generated using Admazely software. It may contain errors in wording, punctuation, or spelling. Emiliano Deng APRN.MONTRELL documented in this encounter [facility] documented as of this encounter (statuses as of 07/23/2022) [facility]08-19-2019 History of Past illness Narrative* Problem Noted Date Resolved Date Elevated liver enzymes 10/07/2018 9 Overview: 10/07/18-AST 50. No signs of pre-e.Hayley Prabhakar APRN.CNM Patient requested diagnostic testing 05/09/2018 11/29/2018 Overview: 05/09/2018Patient desires nuchal ultrasound. Declines CF carrier screening testing. TKRN documented as of this encounter (statuses as of 08/09/2022) [facility]08-19-2019 History of Past illness Narrative* Problem Noted Date Resolved Date Elevated liver enzymes 10/07/2018 9 Overview: 10/07/18-AST 50. No signs of pre-e.Hayley Prabhakar APRN.CNM Patient requested diagnostic testing 05/09/2018 11/29/2018 Overview: 05/09/2018Patient desires nuchal ultrasound. Declines CF carrier screening testing. TKRN documented as of this encounter (statuses as of 08/14/2022) [facility]2019 History of Past illness Narrative* Problem Noted Date Diagnosed Date Resolved Date Elevated liver enzymes 10/07/201801/23 Overview: 10/07/18-AST 50. No signs of pre-e.Hayley Prabhakar APRN.CNM Patient requested diagnostic testing 05/09/2018 11/29/2018 Overview: 05/09/2018Patient desires nuchal ultrasound. Declines CF carrier screening testing. TKRN documented as of this encounter (statuses as of 09/15/2022) [facility]2019 History of Past illness Narrative* Problem Noted Date Diagnosed Date Resolved Date Elevated liver enzymes 10/07/201801/23 Overview: 10/07/18-AST 50. No signs of pre-e.Hayley Prabhakar APRN.CNM Patient requested diagnostic testing 05/09/2018 11/29/2018 Overview: 05/09/2018Patient desires nuchal ultrasound. Declines CF carrier screening testing. TKRN documented as of this encounter (statuses as of 10/12/2022) [facility]08-[facility]2019 History of Past illness Narrative* Problem Noted Date Diagnosed Date Resolved Date Elevated liver enzymes 10/07/201801/23 Overview: 8/19/19-AST 50. No signs of pre-e.Hayley Prabhakar APRN.CNM Patient requested diagnostic testing 05/09/2018 11/29/2018 Overview: 05/09/2018Patient desires nuchal ultrasound. Declines CF carrier screening testing. TKRN documented as of this encounter (statuses as of 10/13/2022) [facility]08-19[facility]2019 History of Past illness Narrative* Problem Noted Date Diagnosed Date Resolved Date Elevated liver enzymes 10/07/201801/23 Overview: 10/07/18-AST 50. No signs of pre-e.Hayley Prabhakar APRN.CNM Patient requested diagnostic testing 05/09/2018 11/29/2018 Overview: 05/09/2018Patient desires nuchal ultrasound. Declines CF carrier screening testing. TKRN documented as of this encounter (statuses as of 12/15/2022) [facility] History of Past illness Narrative* Problem Noted Date Diagnosed Date Resolved Date Elevated liver enzymes 10/07/201801/23 Overview: 10/07/18-AST 50. No signs of pre-e.Hayley Prabhakar APRN.CNM Patient requested diagnostic testing 05/09/2018 11/29/2018 Overview: 05/09/2018Patient desires nuchal ultrasound. Declines CF carrier screening testing. TKRN documented as of this encounter (statuses as of 01/10/2023) [place] [address]-19-2019 History of Past illness Narrative* Problem Noted Date Diagnosed Date Resolved Date Elevated liver enzymes 10/07/201801/23 Overview: 10/07/18-AST 50. No signs of pre-e.Hayley Prabhakar APRN.CNM Patient requested diagnostic testing 05/09/2018 11/29/2018 Overview: 05/09/2018Patient desires nuchal ultrasound. Declines CF carrier screening testing. TKRN documented as of this encounter (statuses as of 01/26/2023) [facility] Diagnosis Sore throat- Primary Acute pharyngitis Viral illness Unspecified viral infection, in conditions classified elsewhere and of unspecified site [facility]* Diagnosis with history of section, antepartum- Primary History of anxiety/depression Personal history of other mental disorder [facility]* Diagnosis 11 weeks gestation of - Primary state, incidental [facility]* Diagnosis with uncertain dates in first trimester- Primary [facility]* Diagnosis 15 weeks gestation of - Primary state, incidental [facility]* Diagnosis with history of section, antepartum- Primary 24 weeks gestation of state, incidental [facility] Diagnosis 28 weeks gestation of - Primary state, incidental with history of section, antepartum Need for vaccination Need for prophylactic vaccination and inoculation against unspecified single disease documented in this encounter [facility] Summary Purpose Family History Lung Cancer Status:Active Comments:Materna l Grandfather. Son 1 Status:Active Comments:Rick Advance Directives No Advanced Directives Records FoundNo Advanced Directives Records FoundNo Advanced Directives Records FoundNo Advanced Directives Records Found Health Concerns Problem Noted Date Diagnosed Date [facility] - [facility] 08/21/2022 [place] - [place] 08/21/2022 Problem Noted Date Diagnosed Date [facility] - [facility] 08/21/2022 [place] - [place] 08/21/2022 Problem Noted Date Diagnosed Date [facility] - [facility] 08/21/2022 [place] - [place] 08/21/2022 Problem Noted Date Diagnosed Date [facility] - [facility] 08/21/2022 [place] - [place] 08/21/2022 Problem Noted Date Diagnosed Date [facility] - [facility] 08/21/2022 [place] - [place] 08/21/2022 Problem Noted Date Diagnosed Date [facility] - [facility] 08/21/2022 [place] - [place] 08/21/2022 Additional Source Comments INFORMATION SOURCE (unrecogn ized section and content) DATE CREATED AUTHOR AUTHOR'S ORGANIZ ATION 12/18/2019 [facility] DATE CREATED AUTHOR AUTHOR'S ORGANIZ ATION 07/15/2020 Ezekiel Garcia [facility] DATE CREATED AUTHOR AUTHOR'S ORGANIZ ATION 03/23/2023 [facility] Source Comments (unrecognize d section and content) In the event this informatio n is protected by the Federal Confidentiality of Alcohol and Drug Abuse Patient Records regulations: The Federal rules restrict any use of the information to criminally investigate or prosecute any alcohol or drug abuse patient.[facility] the event this information is protected by the Federal Confidentiality of Alcohol and Drug Abuse Patient Records regulations: The Federal rules restrict any use of the information to criminally investigate or prosecute any alcohol or drug abuse patient.[facility] the event this information is protected by the Federal Confidentiality of Alcohol and Drug Abuse Patient Records regulations: The Federal rules restrict any use of the information to criminally investigate or prosecute any alcohol or drug abuse patient.[facility] the event this information is protected by the Federal Confidentiality of Alcohol and Drug Abuse Patient Records regulations: The Federal rules restrict any use of the information to criminally investigate or prosecute any alcohol or drug abuse patient.[facility] the event this information is protected by the Federal Confidentiality of Alcohol and Drug Abuse Patient Records regulations: The Federal rules restrict any use of the information to criminally investigate or prosecute any alcohol or drug abuse patient.[facility] the event this information is protected by the Federal Confidentiality of Alcohol and Drug Abuse Patient Records regulations: The Federal rules restrict any use of the information to criminally investigate or prosecute any alcohol or drug abuse patient.[facility] the event this information is protected by the Federal Confidentiality of Alcohol and Drug Abuse Patient Records regulations: The Federal rules restrict any use of the information to criminally investigate or prosecute any alcohol or drug abuse patient.[facility] the event this information is protected by the Federal Confidentiality of Alcohol and Drug Abuse Patient Records regulations: The Federal rules restrict any use of the information to criminally investigate or prosecute any alcohol or drug abuse patient.[facility] the event this information is protected by the Federal Confidentiality of Alcohol and Drug Abuse Patient Records regulations: The Federal rules restrict any use of the information to criminally investigate or prosecute any alcohol or drug abuse patient.[facility] Reason for Visit (unrecogniz ed section and content) Reason Comments Future Appointment Reason Comments Care Reason Onset Date Comments Care 09/15/2022 Reason Onset Date Comments Care 10/13/2022 Reason Onset Date Comments Care 12/15/2022 Reason Onset Date Comments Care 01/10/2023 Reason Comments FMLA Paperwork FOR RECORDS PERTAINING TO PATIENTS WHO ARE OR HAVE BEEN ENROLLED IN A CHEMICAL DEPENDENCY/SUBSTANCEABUSE PROGRAM, SOME INFORMATION MAY BE OMITTED. This clinical summary was aggregated from multiple sources. Caution should be exercised in using it in the provision of clinical care. This summary normalizes information from multiple sources, and as a consequence, information in this document may materially change the coding, format and clinical context of patient data. In addition, data may be omitted in some cases. CLINICAL DECISIONS SHOULD BE BASED ON THE PRIMARY CLINICAL RECORDS. [employer] provides no warranty or guarantee of the accuracy or completeness of information in this document.
[2023-03-26 10:39] LABS: Absolute Lymphocyte Count 2.59 X10^3/uL (0.83-4.51); Absolute Neutrophil Count 8.4 X10^3/uL (2.0-7.7); Basophil# 0.05 X10^3/uL; Basophil% 0.4 % (0-1); Eosinophil# 0.05 X10^3/uL; Eosinophils% 0.4 % (0-5); Hematocrit 35.8 % (37-47); Hemoglobin 11.5 g/dL (12.0-15.0); Lymphocyte # 2.59 X10^3/ul (0.83-4.51); Lymphocyte % 21.4 % (19-41); Mean Corp Hgb Conc 32.1 g/dL (32-36); Mean Corpuscular Hgb 27.1 pg (27.0-32.0); Mean Corpuscular Volume 84.4 fL (81-99); Mean Platelet Vol. 9.8 fl (6.2-12.0); Monocyte# 0.99 X10^3/uL; Monocyte% 8.2 % (0-10); NRBC Flagged by Analyzer 0 % (0-5); Neutrophil # 8.37 X10^3/uL (2.7-7.7); Platelet Count 280 K/mm3 (150-450); RBC Distribution Width SD 39.7 fl (35.1-43.9); Red Blood Count 4.24 M/mm3 (4.2-5.4); White Blood Count 12.1 K/mm3 (4.4-11.0)
[2023-03-26] MEDS: Acetaminophen 500 MG Tablet 1000 MG PO ×3 (10:56→23:39)
[2023-03-26] MEDS: Lactated Ringers 1,000 ML 999 ML IV (10:58)
[2023-03-26 11:32] LABS: Syphilis Antibodies Non-reactive
[2023-03-26] MEDS: Cefazolin 2 GM in 0.9% Normal Saline (100mL Bag) 100 ML IV (12:00)
--- NOTE | 2023-03-26 13:18 | PCM.OPRPT ---
Problems Associated Problem List Diagnoses (1) 39 weeks gestation of : (2) Hx of section: Report of Operation Date of Procedure: 03/26/23 Pre-Operative Diagnosis: 39 week gestation, history prior section Post-Operative Diagnosis: As above Surgery/Procedure Performed:: RLTCS via pfannenstiel incision Description of Surgical Findings:: VFI in cephalic presentation, apgars 9,9. Clear fluid. Normal appearing placenta. Normal appearing uterus and bilateral adnexa. Fascia adhered to the rectus muscles, and rectus muscles adhered in the midline. Surgeon: Magaly Lorenzana laryngologist: Veronica YOUSIF Type of Anesthesia: Spinal Special Medications: None Specimen's removed: Placenta Drains: Guzman Estimated Blood Loss (mL): 800 Fluids Replaced: 250 mL Description of Procedure: The patient was taken to the operating room where spinal anesthesia was induced. She was prepped and draped in the dorsal supine position with a leftward tilt. A Pfannenstiel skin incision was made on the skin with a scalpel and this was carried down to the underlying layer of fascia. The fascia was incised in midline. The fascia was extended laterally using Gutierrez scissors. The fascia was dissected off the rectus muscles in a cephalad direction using a combination of sharp and blunt dissection to identify the midline of the rectus. The fascia was adhered to the rectus muscles. The rectus muscles were adhered in the midline. The rectus muscles were in the midline using sharp dissection until the peritoneum was identified. The peritoneum was then entered bluntly with good visualization of the bladder. The peritoneal incision was extended bluntly with lateral traction. A bladder blade was inserted. A low transverse incision was made on the uterus with a scalpel. The uterine incision was extended with cephalad and caudad traction. Membranes were ruptured for clear fluid using an Allis clamp. The head of the was flexed and delivered through the hysterotomy, followed by the shoulders and body without any force, traction, or delay. The cord was clamped and cut after a slight delay and the infant was vigorous and handed off to the waiting nursery staff. The placenta was removed with manual extraction. The uterus was exteriorized and cleared of all clot and debris. The hysterotomy was closed with 1-0 Vicryl in a running locked fashion. Several different additional ezhidw-qh-[id number] sutures were placed. The uterus was placed back into the abdomen. Rahul was placed over the hysterotomy and lower uterine segment. Hemostasis was noted. The subfascial space was examined and there was a bleeding vessel noted in the midline along the subfascial space, which was made hemostatic using a 3-0 Vicryl ssigaz-br-fgajo stitch. Hemostasis was then noted in the subfascial space. The peritoneum was unable to be reapproximated. The fascia was closed with strata fix in a running fashion. The subcutaneous space was irrigated and hemostatic. The subcutaneous space was reapproximated using 3-0 Vicryl. The skin was closed with 4 Monocryl in a subcuticular fashion. A dressing was placed. Instrument, sharp, sponge counts were correct. The patient was taken to the recovery room in stable condition. Gas Burner Operator Kunal YOUSIF was present for the entire case and assisted with draping the patient, delivery of infant, and closure. Grafts/Implants Used: None Procedure Start Time: 12:28 Procedure Stop Time: 13:15 Complications None Admit VTE Documentation VTE Present on Admission: No VTE Mechan Device Prophylaxis: SCD's
[2023-03-26] MEDS: Oxytocin 15 Units/NS 250ml 15 UNITS/250 ML IV.SOLN 83 UNITS IV (13:35)
[2023-03-26] MEDS: Ketorolac 30 MG/ML Syringe IV ×2 (14:36→20:39)
[2023-03-26] MEDS: Lactated Ringers 1,000 ML 100 ML IV (16:56)
--- NOTE | 2023-03-26 18:12 | NURSING ---
patient with some remaining decreased sensation in toes at this time. Will assess for safe ambulation around 1900. Patient agreeable.
[2023-03-26] MEDS: 0.9% Saline Lock 10 ML Syringe IV (20:39)
[2023-03-26] MEDS: Lactated Ringers 1,000 ML 500 ML IV (23:40)
[2023-03-27] VITALS (17 sets, daily range): BP systolic 97–127; BP diastolic 51–78; PULSE 75–108; RESP 14–21; TEMP 36.3–37.1; O2SAT 95–100
[2023-03-27 02:47] LABS: Hematocrit 24.3 % (37-47); Hemoglobin 7.8 g/dL (12.0-15.0); Mean Corp Hgb Conc 32.1 g/dL (32-36); Mean Corpuscular Hgb 27.8 pg (27.0-32.0); Mean Corpuscular Volume 86.5 fL (81-99); Mean Platelet Vol. 9.9 fl (6.2-12.0); Platelet Count 293 K/mm3 (150-450); RBC Distribution Width CV 13.2 % (11.6-14.6); RBC Distribution Width SD 41.7 fl (35.1-43.9); Red Blood Count 2.81 M/mm3 (4.2-5.4); White Blood Count 17.1 K/mm3 (4.4-11.0)
--- NOTE | 2023-03-27 03:15 | PCM.PN.OB ---
Subjective Subjective Called for syncope. At bedside to evaluate the patient. She denies lightheadedness or dizziness. When she was up to restroom with nursing staff she experienced a syncopal episode. She is now back in bed and feels ok. She feels her abdomen is more distended and feels pressure. Pain is controlled. without complaints. Lochia normal. No nausea or vomiting. Objective Data Objective Data Vital Signs: Vital Signs Temp Pulse Resp BP Pulse Ox O2 Del Method 98.3 F 90 16 93/55 L 100 Room Air 03/26/23 23:31 03/26/23 23:31 03/26/23 23:31 03/26/23 23:31 03/26/23 23:31 03/26/23 23:31 Oxygen Delivery Method Room Air Weight: 159 lb Body Mass Index (BMI) 26.4 Intake & Output: Intake and Output for Last 24 Hours 03/25/23 03/26/23 03/27/23 23:59 23:59 23:59 Intake Total 1786.67 / 1786.67 Output Total 1750 / 1750 Balance 36.67 / 36.67 Lab / Micro Data 03/27/23 02:35 Labs: Laboratory Results - last 24 hr 03/26/23 10:10: WBC 12.1 H, RBC 4.24, Hgb 11.5 L, Hct 35.8 L, MCV 84.4, MCH 27.1, MCHC 32.1, RDW Std Deviation 39.7, RDW Coeff of Stuart 13.0, Plt Count 280, MPV 9.8, Immature Gran % (Auto) 0.600, Neut % (Auto) 69.0, Lymph % (Auto) 21.4, [place] % (Auto) 8.2, Eos % (Auto) 0.4, Baso % (Auto) 0.4, Absolute Neuts (auto) 8.4 H, Absolute Lymphs (auto) 2.59, Nucleated RBC % 0, Syphilis Total Ab Non-reactive, Blood Type O POSITIVE, Antibody Screen NEGATIVE 03/27/23 02:35: WBC 17.1 H, RBC 2.81 L, Hgb 7.8 L, Hct 24.3 L, MCV 86.5, MCH 27.8, MCHC 32.1, RDW Std Deviation 41.7, RDW Coeff of Stuart 13.2, Plt Count 293, MPV 9.9 Physical Exam Const alert and no apparent distress General Appearance: comfortable HEENT normocephalic Resp normal respiratory effort GI soft to palpation GI Narrative: Softly distended, diffusely tender Assessment & Plan (1) Delivery by section: PLAN: Discussed with patient concern for continued bleeding. Hgb 7.8. 1L fluid bolus ordered, to place second IV, T&C for 2 units and to start transfusion when available. Discussed r/b/a of a blood transfusion with patient and consent obtained. Discussed r/b/a exploratory laparotomy, evacuation of hemoperitoneum, possible hysterectomy. Waiting on main OR team to be able to take the patient to the OR. (2) Acute blood loss anemia:
[2023-03-27] MEDS: Lactated Ringers 1,000 ML 500 ML IV (03:41)
[2023-03-27] MEDS: 0.9% Normal Saline 1,000 ML IV.SOLN. 1000 ML IV (05:00)
[2023-03-27] MEDS: Cefazolin 2 GM in 0.9% Normal Saline (100mL Bag) 100 ML IV (05:20)
--- NOTE | 2023-03-27 06:32 | NURSING ---
0542 2ND UNIT OF PRBC'S OBTAINED FROM LAB-TAKEN TO OR
[2023-03-27] MEDS: LACTATED RINGERS 500 ML 999 ML IV (06:33)
--- NOTE | 2023-03-27 07:01 | OP.PCM_ITS ---
Problems Associated Problem List Diagnoses (1) Hemoperitoneum: (2) Hypotension: (3) Acute blood loss anemia: (4) Delivery by section: Report of Operation Date of Procedure: 03/27/23 Pre-Operative Diagnosis: S/p section, acute blood loss anemia, hemoperitoneum Post-Operative Diagnosis: As above Surgery/Procedure Performed:: Exploratory laparotomy, evacuation of hemoperitoneum, application of hemostatic agents Description of Surgical Findings:: 800 mL of blood and blot clot present in abdomen. The underside of the left rectus muscles were slowly bleeding with a stable 4x2 cm hematoma under the rectus muscle. Surgeon: Magaly Lorenzana blanket binder: Mary Horne Type of Anesthesia: Spinal Special Medications: None Specimen's removed: None Drains: Guzman Estimated Blood Loss (mL): 800 Fluids Replaced: 800 mL Description of Procedure: The patient was taken to the operating room where spinal anesthesia was induced. She was prepped and draped in the dorsal supine position. A Pfannenstiel skin incision was made with a scalpel and this was carried down to the underlying layer of fascia. The 3-0 Vicryl and 4-0 Monocryl were removed from the subcutaneous space. Gutierrez scissors were used to cut out the STRATAFIX from the fascia to open the fascial incision. About 800 mL of blood and blood clot were evacuated from the abdomen and pelvis. The uterus and hysterotomy were examined and noted to be hemostatic. Bilateral adnexa were examined and noted to be hemostatic. The underside of the left rectus muscles were slightly bleeding. There was a 4 x 2 soft and stable hematoma noted under the left rectus muscles. Floseal was placed and pressure was applied along the left rectus muscles. There was 1 area on top of the left rectus muscles that was bleeding, and a 3-0 Vicryl [id number] stitch was placed for hemostasis. Pressure was then removed from the underside of the rectus where the Floseal was placed, and hemostasis was noted along the left rectus muscles. Pressure was then applied for an 2 additional minutes. Pressure was then removed and no bleeding was noted again. We observed the rectus muscles and abdomen for an additional 2 minutes without pressure. No additional blood was pooling in the abdomen or pelvis. No active bleeding was noted. The rectus muscles were noted hemostatic. The uterus was again noted to be hemostatic. The subfascial space was again reexamined and noted to be hemostatic. The fascia was closed with strata fix in a running fashion. Subcutaneous space was irrigated and made hemostatic with Bovie cautery. Subcutaneous space was reapproximated with 3-0 Vicryl. The skin was closed with 4-0 Monocryl. Sponge, instrument, sharp counts were correct. The patient was taken to the ICU for recovery. She received 2 units of packed red blood cells back in the operating room and vital signs remained stable. Dr. Mary Horne MD and Chris YOUSIF were present as assistants. Dr. Mary Horne assisted with draping the patient, evacuation of hemoperitoneum, identifying bleeding, and making the bleeding hemostatic. Chris YOUSIF was present for the entire case and assisted with closure of the fascia, subcutaneous space, and skin. Grafts/Implants Used: None Complications None Admit VTE Documentation VTE Present on Admission: No VTE Mechan Device Prophylaxis: SCD's
[2023-03-27 08:01] LABS: Hematocrit 27.7 % (37-47); Hemoglobin 9.1 g/dL (12.0-15.0); Mean Corp Hgb Conc 32.9 g/dL (32-36); Mean Corpuscular Volume 85.2 fL (81-99); Mean Platelet Vol. 9.4 fl (6.2-12.0); Platelet Count 207 K/mm3 (150-450); RBC Distribution Width CV 13.2 % (11.6-14.6); RBC Distribution Width SD 41.2 fl (35.1-43.9); Red Blood Count 3.25 M/mm3 (4.2-5.4); White Blood Count 15.5 K/mm3 (4.4-11.0)
[2023-03-27] MEDS: Ketorolac 30 MG/ML Syringe IV ×3 (08:15→18:58)
[2023-03-27] MEDS: Acetaminophen 500 MG Tablet 1000 MG PO ×3 (08:15→18:57)
[2023-03-27 08:16] LABS: International Normalized Ratio 1.1; Prothrombin Time (Protime)PT. 14.2 SECONDS (11.7-14.9)
[2023-03-27] MEDS: Senna/Docusate Sodium 1 Tablet PO (08:16)
[2023-03-27 08:17] LABS: Partial Thromboplast Time 26.1 Seconds (24.1-36.2)
[2023-03-27 09:26] LABS: Fibrinogen 383 mg/dl (203-444)
[2023-03-27] MEDS: Lactated Ringers 1,000 ML 100 ML IV ×2 (10:42→21:47)
--- NOTE | 2023-03-27 11:14 | NURSING ---
IBCLC at bedside to assist with pumping. Pump set up done with colostrum collectors, settings of pump, and frequency of pumping discussed. Pump settings at 80, and suction at 30%. Instructed patient to use breast pump every 3 hours for 15-20 minutes. Patient states understanding. Also instructed patient on how to do hand expression, patient return demonstration.
[2023-03-27 12:08] LABS: Hematocrit 30.4 % (37-47); Hemoglobin 10.2 g/dL (12.0-15.0); Mean Corp Hgb Conc 33.6 g/dL (32-36); Mean Corpuscular Hgb 28.8 pg (27.0-32.0); Mean Corpuscular Volume 85.9 fL (81-99); Mean Platelet Vol. 9.5 fl (6.2-12.0); Platelet Count 208 K/mm3 (150-450); RBC Distribution Width CV 13.8 % (11.6-14.6); RBC Distribution Width SD 43.3 fl (35.1-43.9); Red Blood Count 3.54 M/mm3 (4.2-5.4); White Blood Count 15.9 K/mm3 (4.4-11.0)
[2023-03-27] MEDS: Cefazolin 1 GM/50 ML BAG IV ×2 (14:40→21:47)
[2023-03-27] MEDS: oxyCODONE 5 MG Tablet PO (15:17)
[2023-03-27 17:41] LABS: Hematocrit 28.8 % (37-47); Hemoglobin 9.7 g/dL (12.0-15.0); Mean Corp Hgb Conc 33.7 g/dL (32-36); Mean Corpuscular Volume 86.2 fL (81-99); Mean Platelet Vol. 9.2 fl (6.2-12.0); Platelet Count 200 K/mm3 (150-450); RBC Distribution Width CV 14.1 % (11.6-14.6); RBC Distribution Width SD 43.5 fl (35.1-43.9); Red Blood Count 3.34 M/mm3 (4.2-5.4); White Blood Count 14.5 K/mm3 (4.4-11.0)
[2023-03-27] MEDS: 0.9% Saline Lock 10 ML Syringe IV ×2 (18:58→21:48)
[2023-03-28] MEDS: Acetaminophen 500 MG Tablet 1000 MG PO ×4 (01:04→19:24)
[2023-03-28] MEDS: Ketorolac 30 MG/ML Syringe IV (01:04)
[2023-03-28 01:45] VITALS: BP 120/76; PULSE 91; RESP 16; TEMP 36.5; O2SAT 97
[2023-03-28 04:28] LABS: Hemoglobin 8.7 g/dL (12.0-15.0); Mean Corp Hgb Conc 32.2 g/dL (32-36); Mean Corpuscular Hgb 28.4 pg (27.0-32.0); Mean Corpuscular Volume 88.2 fL (81-99); Mean Platelet Vol. 9.2 fl (6.2-12.0); Platelet Count 184 K/mm3 (150-450); RBC Distribution Width CV 14.2 % (11.6-14.6); RBC Distribution Width SD 45.1 fl (35.1-43.9); Red Blood Count 3.06 M/mm3 (4.2-5.4); White Blood Count 13.1 K/mm3 (4.4-11.0)
--- NOTE | 2023-03-28 07:08 | PCM.PN.CNM ---
Subjective Subjective Patient seen at bedside. Feeling good. Denies any dizziness, headache, SOB, or CP. Ambulating independently to bathroom. Voiding and passing flatus. Lochia is minimal. . Objective Data Objective Data Vital Signs: Vital Signs Temp Pulse Resp BP Pulse Ox O2 Del Method 97.7 F L 91 16 120/76 97 Room Air 03/28/23 01:45 03/28/23 01:45 03/28/23 01:45 03/28/23 01:45 03/28/23 01:45 03/28/23 01:45 Oxygen Delivery Method Room Air Weight: 159 lb Body Mass Index (BMI) 26.4 Intake & Output: Intake and Output for Last 24 Hours 03/26/23 03/27/23 03/28/23 23:59 23:59 23:59 Intake Total 1786.67 / 1786.67 3633 / 3633 Output Total 1750 / 1750 1700 / 1700 Balance 36.67 / 36.67 1933 / 1933 Lab / Micro Data 03/28/23 04:24 Labs: Laboratory Results - last 24 hr 03/26/23 10:10: Crossmatch See Detail 03/27/23 03:43: Crossmatch See Detail 03/27/23 07:50: WBC 15.5 H, RBC 3.25 L, Hgb 9.1 L, Hct 27.7 L, MCV 85.2, MCH 28.0, MCHC 32.9, RDW Std Deviation 41.2, RDW Coeff of Stuart 13.2, Plt Count 207, MPV 9.4, PT 14.2, INR 1.1, APTT 26.1, Fibrinogen 383 03/27/23 11:55: WBC 15.9 H, RBC 3.54 L, Hgb 10.2 L, Hct 30.4 L, MCV 85.9, MCH 28.8, MCHC 33.6, RDW Std Deviation 43.3, RDW Coeff of Stuart 13.8, Plt Count 208, MPV 9.5 03/27/23 17:35: WBC 14.5 H, RBC 3.34 L, Hgb 9.7 L, Hct 28.8 L, MCV 86.2, MCH 29.0, MCHC 33.7, RDW Std Deviation 43.5, RDW Coeff of Stuart 14.1, Plt Count 200, MPV 9.2 03/28/23 04:24: WBC 13.1 H, RBC 3.06 L, Hgb 8.7 L, Hct 27.0 L, MCV 88.2, MCH 28.4, MCHC 32.2, RDW Std Deviation 45.1 H, RDW Coeff of Stuart 14.2, Plt Count 184, MPV 9.2 ROS Eyes Eyes: Denies blurry vision, change in vision or spots in vision ENT HEENT: Denies dizziness or headache(s) Cardiovascular Cardiovascular: Denies abdominal pain, chest pain or dyspnea Respiratory/Chest Respiratory/Chest: Denies cough, dyspnea, shortness of breath at rest or shortness of breath with exertion Gastrointestinal Gastrointestinal: Denies abdominal pain, diarrhea or vomiting Genitourinary Genitourinary: Denies change in urinary stream, difficulty urinating or dysuria Musculoskeletal Musculoskeletal: Reports none Integumentary Integumentary: Denies rash Neurologic Neurologic: Denies dizziness, headache(s), memory loss or weakness Physical Exam Narrative Dressing is dry and intact Const alert and no apparent distress General Appearance: cooperative and comfortable Exam Limitations: no limitations HEENT normocephalic Eyes General Eye: normal appearance of both eyes Neck full ROM General: normal visual inspection Chest Chest: symmetrical chest wall rise Resp normal respiratory effort and normal air movement Effort and Inspection: symmetric chest movement Auscultation: clear to auscultation bilaterally Cardio regular rate and regular rhythm GI normal to inspection, nondistended, normoactive bowel sounds Back/Spine normal ROM Extremity full ROM and no calf tenderness General Extremity: normal exam except as noted Skin no rashes or lesions noted Neuro CN's II-XII intact bilaterally Psych mental status grossly normal Assessment & Plan (1) Delivery by section: (2) Acute blood loss anemia: (3) Hemoperitoneum: (4) Care and examination of lactating mother: PLAN: Plan Hgb. 8.7 down from 9.7 Start Ferrous sulfate 325 mg PO BID Pain control support Anticipate discharge home tomorrow
[2023-03-28] MEDS: Ibuprofen 600 MG Tablet PO ×3 (07:45→19:24)
[2023-03-28 07:51] VITALS: BP 113/72; PULSE 74; RESP 16; TEMP 36.6; O2SAT 98
[2023-03-28] MEDS: Senna/Docusate Sodium 1 Tablet PO (10:07)
[2023-03-28] MEDS: Ferrous Sulfate 325 MG Tablet PO ×2 (11:51→19:24)
[2023-03-28 13:48] VITALS: BP 113/70; PULSE 87; RESP 16; TEMP 37.3
[2023-03-28 21:00] VITALS: BP 122/79; PULSE 86; RESP 16; TEMP 36.8; O2SAT 97
[2023-03-29] MEDS: Acetaminophen 500 MG Tablet 1000 MG PO ×2 (01:34→08:19)
[2023-03-29] MEDS: Ibuprofen 600 MG Tablet PO ×2 (01:34→08:19)
[2023-03-29 01:47] VITALS: BP 115/52; PULSE 72; RESP 18; TEMP 36.2; O2SAT 95
[2023-03-29 08:30] VITALS: BP 127/82; RESP 16; TEMP 36.7
[2023-03-29] MEDS: Senna/Docusate Sodium 1 Tablet PO (10:01)
[2023-03-29] MEDS: Ferrous Sulfate 325 MG Tablet PO (10:02)
--- NOTE | 2023-03-29 12:13 | PN.OBGYN_ITS ---
Subjective Subjective Patient is doing well and desires to go home. Pain is minimal and controlled. She is ambulating and voiding without difficulty. She had a bowel movement that was regular for her and she is passing gas. She is tolerating regular diet without nausea or vomiting. Lochia is normal. She is breast-feeding without c omplaints. She denies lightheadedness, dizziness, chest pain, shortness of breath, leg pain. She offers no complaints this morning. Objective Data Objective Data Vital Signs: Vital Signs Temp Pulse Resp BP Pulse Ox O2 Del Method 98.1 F 72 16 127/82 H 95 Room Air 03/29/23 08:30 03/29/23 01:47 03/29/23 08:30 03/29/23 08:30 03/29/23 01:47 03/29/23 01:47 Oxygen Delivery Method Room Air Weight: 159 lb Body Mass Index (BMI) 26.4 Intake & Output: Intake and Output for Last 24 Hours 03/27/23 03/28/23 03/29/23 23:59 23:59 23:59 Intake Total 3633 / 3633 Output Total 1700 / 1700 Balance 1933 / 1933 Lab / Micro Data 03/28/23 04:24 Physical Exam Const alert and no apparent distress General Appearance: comfortable HEENT normocephalic Resp normal respiratory effort GI soft to palpation, non-tender and non-distended GI Narrative: FF@U-3, dressing c/d/i Extremity normal to inspection and no calf tenderness Assessment & Plan (1) Care and examination of lactating mother: (2) Acute blood loss anemia: (3) Delivery by section: PLAN: Patient is postoperative day 3 from a repeat section and postoperative day 2 from exploratory laparotomy with evacuation of hemoperitoneum and placement of hemostatic agents over the rectus muscle. She is doing well and meeting milestones for discharge. Discharge instructions reviewed. She feels she is not having any pain and does not want opiate pain medication to go home with. Will send her home with iron. She has an incision check with me in a couple of days.
--- NOTE | 2023-03-29 12:18 | DCINST_ITS ---
Discharge Instructions Diet Discharge Diet: No restrictions Activity Discharge Activity: May Drive (once you feel you are strong enough to slam on a brake or turn a steering wheel sharply) May shower in (days): 0 May resume sexual activity in: 6 weeks Ice area for (Minutes): 15 Weight Bearing Status: Weight bearing as tolerated Lifting Restrictions: nothing heavier than baby Dressing / Incision Call your doctor if your incision/area has: Continuous Slow Oozing, Sudden Increased Bleeding, Increased Pain/ Swelling, Increased Redness, Foul Smelling Discharge and Swelling at the incision site Call your doctor if you observe: Fever of 101 or Higher, Coldness, Increased Pain, Numbness or Tingling, Change in Color, Inability to urinate, Inability to have a bowel movement, Using more than 1 pad per hour, Shortness of breath, Dizziness, Fainting spells, Swelling in the ankles, Chest pain, Prolonged hiccupping, Increased palpitations (irregular heartbeat), Calf discomfort and Uncontrolled pain Suture Line Care: Avoid Pulling/Pushing and Avoid Pinching/Bending Remove Dressing in: leave in place till F/U Cleanse incision/area with: Soap & Water Follow Up Care Please Follow Up With: Magaly Lorenzana DO When: next week 6 week exam Test Results: Test results from this visit will be discussed in further detail at your follow- up appointment, if applicable. Discharge Plan Admission Admit Date/Time: 03/26/23 09:43 Primary Reason for Your Visit: delivery Attending Provider: Magaly Lorenzana Primary Care Provider: Cherry Guido Instructions Patient Instructions: After a Additional Instructions / Restrictions: Alternate Ibuprofen and Tylenol for pain Drink prune or pear juice to help prevent constipation Colace and Miralax are okay to take as needed for constipation Discharge Orders/Prescriptions Prescriptions: New ferrous sulfate 325 mg (65 mg iron) tablet 325 mg PO QODAY Qty: 30 0RF Continued [id number] oil 400 mcg-35 mg -25 mg-5 mg tablet,chewable 1 tab PO DAILY Discontinued famotidine 40 mg tablet 40 mg PO DAILY Referrals / Follow Up: Cherry Guido PA [Primary Care Provider] - Disposition Disposition (needs filled in before D/C Order can be placed): Home, Self Care
--- NOTE | 2023-03-29 12:21 | PCM.DC.SUM ---
Providers Date of Admission: 03/26/23 Date of Discharge: 03/29/23 Primary Care Physician: LUCIO Peters Reason For Visit: REPEAT Diagnosis Discharge Diagnosis (1) Care and examination of lactating mother: Status: Acute Code(s): Z39.1 - Encounter for care and examination of lactating mother (2) Acute blood loss anemia: Status: Acute Code(s): D62 - Acute posthemorrhagic anemia (3) Delivery by section: Status: Acute Plan: Patient is postoperative day 3 from a repeat section and postoperative day 2 from exploratory laparotomy with evacuation of hemoperitoneum and placement of hemostatic agents over the rectus muscle. She is doing well and meeting milestones for discharge. Discharge instructions reviewed. She feels she is not having any pain and does not want opiate pain medication to go home with. Will send her home with iron. She has an incision check with me in a couple of days. Medications at Discharge Home Medications AMT00-PO 400 mcg-om3 35 mg-dha 25 mg-epa 5 mg-fish oil chewable tablet 1 tab PO DAILY 03/26/23 ferrous sulfate 325 mg (65 mg iron) tablet 325 mg PO QODAY #30 tabs 03/29/23 Hospital Course Operations section and - (exploratory laparotomy, evacuation of hemoperitoneum, placement of hemostatic agent over rectus muscle) Summary of Care Provided Minutes Spent on Discharge: 10 Hospital Course: Patient presented to the hospital on March 26, 2023 for a scheduled repeat section. See operative report for details. On postoperative day 1 she had a syncopal episode and acute blood loss anemia was noted. She was taken to the operating room for an exploratory laparotomy with evacuation of hemoperitoneum and placement of hemostatic agents over the rectus muscles. See operative report for details. She received 3 units of packed red blood cells. On postoperative day 3 she was meeting milestones for discharge. She had minimal pain, was tolerating regular diet, ambulating and voiding without difficulty, and had a bowel movement. She was discharged home on POD#3 with follow-up in a couple of days. Weight / BMI Weight Weight: 159 lb Body Mass Index (BMI) 26.4 ABG / Lab / Microbiology Data 03/28/23 04:24 D/C Instructions Discharge Diet: No restrictions May shower in (days): 0 May resume sexual activity in: 6 weeks Ice area for (Minutes): 15 Weight Bearing Status: Weight bearing as tolerated Call your doctor if your incision/area has: Continuous Slow Oozing, Sudden Increased Bleeding, Increased Pain/ Swelling, Increased Redness, Foul Smelling Discharge and Swelling at the incision site Call your doctor if you observe: Fever of 101 or Higher, Coldness, Increased Pain, Numbness or Tingling, Change in Color, Inability to urinate, Inability to have a bowel movement, Using more than 1 pad per hour, Shortness of breath, Dizziness, Fainting spells, Swelling in the ankles, Chest pain, Prolonged hiccupping, Increased palpitations (irregular heartbeat), Calf discomfort and Uncontrolled pain Suture Line Care: Avoid Pulling/Pushing and Avoid Pinching/Bending Cleanse incision/area with: Soap & Water Please Follow Up With: Magaly Lorenzana DO When: next week 6 week exam Meaningful Use Info Meaningful Use Diagnoses (Choose all that apply): None applicable Discharge Plan Admission Admit Date/Time: 03/26/23 09:43 Primary Reason for Your Visit: delivery Attending Provider: Magaly Lorenzana Primary Care Provider: Cherry Guido Instructions Patient Instructions: After a Additional Instructions / Restrictions: Alternate Ibuprofen and Tylenol for pain Drink prune or pear juice to help prevent constipation Colace and Miralax are okay to take as needed for constipation Discharge Orders/Prescriptions Prescriptions: New ferrous sulfate 325 mg (65 mg iron) tablet 325 mg PO QODAY Qty: 30 0RF Continued [id number]-[id number] oil 400 mcg-35 mg -25 mg-5 mg tablet,chewable 1 tab PO DAILY Discontinued famotidine 40 mg tablet 40 mg PO DAILY Referrals / Follow Up: Cherry Guido PA [Primary Care Provider] - Disposition Disposition (needs filled in before D/C Order can be placed): Home, Self Care
--- NOTE | 2023-03-29 12:28 | CASEMGMT ---
Social Work Assessment Labor and Delivery Unit Patient Address:[address] [place], [place] [address] [address] Phone number: [phone] Date of Referral: 03/26/23 Time of Referral:? 1558 Referred By: Magaly Lorenzana Date of Intervention: ??03/28/23 Time of Intervention:? 1530 Reason for Referral:? hx of anxiety and depression Sw completed chart review and acknowledges social work consult due to maternal mental health history of anxiety and depression. Sw presented to bedside and introduced self to mother of baby (MOB- Tiffany) and father of baby (FOB- Mahin). Sw explained reason for social work consult and completed psychosocial assessment. History obtained from: medical records, MOB and FOB Household composition: Currently residing in the family home is MARCUS RED, their 4 year old son, Rick, and now baby. Parents deny any issues or concerns with their housing, stating it is safe and secure. Patient's parent/guardian status:? ?Parents state that they met while in high school and have been together for 6 years. No concerns at this time reported regarding domestic violence or intimate partner violence. Medical History: ?NEDA is 2, para 1-now 2 following labor and delivery of . NEDA obtained routine care during with [facility]. MOB delivered baby girl, named Sophie Quintanilla, on 03/26/23 via at 39 weeks gestation. Baby was born weighing 6lb 4oz and her apgars were 9 and 9 at one and five minutes of life, respectfully. Baby will be followed by Dr. Blank for pediatrics. NEDA states that she is breast feeding and has a pump for home. Educational Status:?Both parents graduated from high school. No concerns with reading, learning or comprehension. Financial Status: Both parents are gainfully employed outside of the home. MOB works at [employer] in the [employer]. FOGalileo works as a truck repair man, is self employed. Infant Supplies:?? All necessary baby supplies have been obtained, including: car seat, safe sleep space, clothes, diapers and wipes. Childcare/Caregiver(s):? MOB will be primary caregiver to baby, along with FOB when he is not at work. When both parents are working maternal grandma will babysit baby and big sister. Transportation:?? Parents have their drivers license and reliable means of transportation. No barriers at this time. Programs/Agencies Involved: ?No linkage to financial community resources at this time. ?? Children Services/Legal Issues:??? No history of children services involvement, no issues or concerns warranting referral at this time. Behavioral Health Issues: ??Mental Health History:?FOB denies any mental health diagnoses. MOB states that she has been diagnosed with anxiety and depression. MOB states that she is not connected to mental health resources and is not prescribed any medications to help with symptoms. ?? Substance Use History:?MOB denies substance use prior to and during . ? Family History:???Parents deny any family history of addiction or substance use disorders, or mental health diagnoses. ?? Drug Screens: ??No urine screens observed during chart review. Family/Social Stressors:? Parents deny any issues or concerns at this time. Support Systems: MOB reports that maternal grandma and other grandparents are their biggest supports at this time. Depression/Shaken Baby/Safe Sleeping:? Sw educated MOB and FOB about signs and symptoms of baby blues and depression and anxiety. Parents express understanding. Sw educated parents on shaken baby prevention and ABCs of safe sleep. Parents express understanding. ASSESSMENT:? MOB and baby admitted following labor and delivery of . MOB and FOB participated in psychosocial assessment, but quiet and not offering ongoing responses to questions asked. Parents have obtained all necessary baby supplies and have adequate supports in place. MOB with mental health history, no history of baby blues or depression/ anxiety, and aware of signs and symptoms to be on the lookout for. Parents receptive to list of resources provided and sw involvement and support. PLAN:? MOB and baby to be discharged when medically ready. ?No other services requested or indicated. Maria Antonia Ovalle, [employer], BOOK COVERER
== END 2023-03-29 12:40 | disposition home or self-care (01) | DRG 786 ==
LOC: WP 03-27 04:00 → ICU 03-27 08:26 → WP 03-27 18:32
PROVIDERS: Obstetrics & Gynecology; Admitting Provider Obstetrics & Gynecology; PCP Physician Assistant; Visit Provider Obstetrics & Gynecology
PROC: 10D00Z1 Extraction of Products of Conception, Low, Open Approach (ICD-10-PCS; CPT 59514; principal; 2023-03-26 11:45)
PROC: 0UT90ZZ Resection of Uterus, Open Approach (ICD-10-PCS; CPT 58150; principal; 2023-03-27 05:00)
DX: O34.211 Maternal care for low transverse scar from previous cesarean delivery (principal); K66.1 Hemoperitoneum; D62 Acute posthemorrhagic anemia; O99.43 Diseases of the circulatory system complicating the puerperium; I95.89 Other hypotension; O99.63 Diseases of the digestive system complicating the puerperium; O90.81 Anemia of the puerperium; Z37.0 Single live birth; Z3A.39 39 weeks gestation of pregnancy
CPT/HCPCS: 59025; 59050; 85025; 85027; 85384; 85610; 85730; 86780; 86850; 86900; 86901; 86920; 86922; 94668; 94762; 99221; J7030; J7120; P9016; A4216; G0378; J2405

== ENCOUNTER 2023-04-14 01:26 | Inpatient (IN) | payer OTHER, SELFPAY ==
[2023-04-14] VITALS (16 sets, daily range): BP systolic 111–144; BP diastolic 68–105; PULSE 58–95; RESP 16–21; TEMP 36.2–36.7; O2SAT 93–100; BMI 24.2; BMI 23.8
--- NOTE | 2023-04-14 01:43 | CT_ITS ---
INDICATION: abd pain EXAMINATION: CT Abdomen And Pelvis W/ Contrast Injection TECHNIQUE: Helically acquired images were obtained of the abdomen and pelvis with sagittal and coronal reconstructed images. Individualized dose optimization techniques were used for this CT. IV contrast dosage and agent: 100 mL of Isovue-370. Oral contrast: None. COMPARISON: None. FINDINGS: VESSELS: No abdominal aortic aneurysm or dissection. LIVER: No evidence of a mass. No intrahepatic or extrahepatic biliary duct dilation. GALLBLADDER: No calcified stones. Moderately distended. Gallbladder wall thickening. PANCREAS: No focal solid or cystic mass. No evidence of pancreatitis. SPLEEN: Normal. ADRENAL GLANDS: Normal. KIDNEYS AND URETERS: No urinary tract stone. No hydronephrosis or hydroureter. No significant asymmetric perinephric stranding. URINARY BLADDER: Unremarkable. BOWEL: No evidence of diverticulosis or diverticulitis. Appendix not identified. No evidence of bowel obstruction. REPRODUCTIVE ORGANS: Hyperenhancing myometrium and endometrium of the uterus with adjacent fat stranding. PERITONEUM: Small amount of dependent pelvic free fluid. No free air. Stranding of the anterior mesenteric fat in the lower abdomen and pelvis. LYMPH NODES: No pathologically enlarged mesenteric or retroperitoneal lymph nodes. ABDOMINAL WALL: No abdominal or pelvic wall hernia. BONES: No acute abnormality. LOWER CHEST: Visualized lung bases are unremarkable. CT/Abdomen/Pelvis W IV Cont ONLY IMPRESSION: 1. Distended gallbladder with gallbladder wall thickening. Recommend follow-up with right upper quadrant ultrasound to evaluate for possible cholecystitis. 2. Hyperenhancing myometrium and endometrium of the uterus with adjacent fat stranding and stranding of the anterior mesenteric fat in the lower abdomen and pelvis. Findings may represent pelvic inflammatory disease. Consider follow-up with pelvic ultrasound. Electronically Signed: Emiliano Mehta DO at 4:11 EST ,
--- OUTSIDE RECORDS SUMMARY | 2023-04-14 02:01 | XMS RPT_ITS | CCD ---
Author Name Unknown Address [address] [place] [address] Organization [facility] Care Team Providers Care Instructor [employer] Name Role Phone TARA, DR TEMO Jones Attending Unavaila ble TARA, DR TEMO Jones Admitting Unavaila ble NO, DOCTOR ON Consulting Unavailable TARA, DR TEMO Jones Primary Care Unavaila ble TARA, DR TEMO Jones Primary Care Unavaila ble TARA, DR TEMO oJnes Attending Unavaila ble NO, DOCTOR ON Consulting Unavailable TARA, DR TEMO Jones Admitting Unavaila ble TARA, DR TEMO Jones Primary Care Unavaila ble TARA, DR TEMO Jones Attending Unavaila ble TARA, DR TEMO Jones Admitting Unavaila ble Unavailable Primary Care Provider Unavaildina e Cherry Guido PA-C Unavailable Cherry Guido PA-C Unavailable Rework Machine Operator/Gynecology Prov. Unavailable Un available Emma Simmons MD Unavailable Anatoliy AUTOMATIC LINE SET UP MECHANIC, Lala Unavailable Day AUTOMATIC LINE SET UP MECHANIC, Tete Unavailable Unavailable Gogoi (scribe), Hemanta Unavailable Unavaila ble Evangelista AUTOMATIC LINE SET UP MECHANIC, Tayler Unavailable Unavailable Omega Lowe MD Unavailable King JESSICA-C, Chip Farley Unavailable Gia CARDENAS, Lavinia Wong Unavailable Unavaila megha Han RN, Jazmín Unavailable Prieto CARDENAS, Delmy Barton Unavailable Unavailable Uptain CNM, Acacia Cuevas Unavailable Vess AUTOMATIC LINE SET UP MECHANIC, Neilee L Unavailable Unavailable Wengerd AUTOMATIC LINE SET UP MECHANIC, Anjali Unavailable Unavailabl e Zaugg AUTOMATIC LINE SET UP MECHANIC, Hayley Unavailable Unavailable Unavailable Unavailable Uptain [facility] Primary Care Provider CHERY, HAYLEY Attending Unavailable PRABHAKAR, HAYLEY Referring Unavailable PRABHAKAR, HAYLEY Referring Unavailable ULICES PADILLA Attending Unavailable ANDRIA ROCK Attending Unavailable UPTAIN, [place] Primary Care Unavailable WISWELL, KOURTNEY Attending Unavailable UPTAIN, ACACIA Primary Care Unavailable SELF Referring Unavailable WISWELL, KOURTNEY Attending Unavailable PRABHAKAR, HAYLEY Referring Unavailable PRABHAKAR, HAYLEY Attending Unavailable UPTAIN, CRYSTAL Primary Care Unavailable SELF Referring Unavailable WISWELL, KOURTNEY Attending Unavailable UPTAIN, [place] Primary Care Unavailable PRABHAKAR, HAYLEY Referring Unavailable PLOTTS, RADHA Attending Unavailable PRABHAKAR, HAYLEY Referring Unavailable PRABHAKAR, AHYLEY Attending Unavailable PLOTTS, RADHA Attending Unavailable PLOTTS, RADHA Attending Unavailable ULICES PADILLA Attending Unavailable PRABHAKAR, HAYLEY Referring Unavailable PRABHAKAR, HAYLEY Attending Unavailable ULICES PADILLA Attending Unavailable Allergies Allergy Classification Reported Allergen(s) Allergy Type Date of Onset Reaction(s) Facility (13 sources) Seasonal allergy; Translations: [SEASONAL ALLERGIES] Allergy to substance 9 Other: See Comments [facility] Work Phone: Medications Current Medications Medication Drug Class(es) Dates Sig (Normalized) Sig (Original) famotidine 40 mg oral tablet (6 sources) Histamine-2 Receptor Antagonist Start: 12-15-2022 End: 04-14-2023 take 1 tablet by mouth once daily famotidine (PEPCID) 40 mg tablet Take 1 tablet by mouth once daily. 30 tablet 3 12/15/2022 04/14/2023 Active Completed/Discontinued Medications Medication Drug Class(es) Dates Sig (Normalized) Sig (Original) acetaminophen 325 mg oral tablet (12 sources) take 2 tablets by mouth every six hours as needed acetaminophen (TYLENOL) 325 mg tablet Take 650 mg by mouth every 6 hours as needed. 0 Active Problems Active Problems Problem Classification Problem Date Documented Da te Episodic/Chronic Allergic reactions (10 sources) Urticaria; Translations: [Urticaria, unspecified] 12-10-2018 Episodic Anxiety disorders (15 sources) Anxiety; Translations: [Anxiety disorder, unspecified] 12-10-2018 Chronic Conditions associated with dizziness or vertigo (5 sources) Vertigo; Translations: [Dizziness and giddiness] 05-27-2013 Episodic Contraceptive and procreative management (20 sources) Patient encounter status; Translations: [Encounter for other general counseling and advice on contraception] 12-10-2019 Episodic Past or Other Problems Problem Classification Problem Date Documented Date Episodic/Chronic Other complications of (3 sources) Other specified related conditions, second trimester; Translations: [Other specified related conditions, second trimester] Onset: 12-16-2019 Episodic Other complications of (9 sources) High risk ; Translations: [Supervision of [...] of smell and taste] Onset: 01-23-2020 Episodic Previous (11 sources) ; Translations: [Maternal care for unspecified type scar from previous delivery] Onset: 08-14-2022 Episodic Residual codes; unclassified (1 source) 25 weeks gestation of ; Translations: [25 weeks gestation of ] Onset: 12-16-2019 Episodic Screening and history of mental health and substance abuse codes (13 sources) H/O: anxiety state; Translations: [Personal history of other mental and behavioral disorders] Onset: 05-09-2018 05-09-2018 Episodic Spondylosis; intervertebral disc disorders; other back problems (1 source) Dorsalgia, unspecified; Translations: [Dorsalgia, unspecified] Onset: 12-16-2019 Episodic Unclassified (5 sources) Well adult female - The patient feels [...] wanting to start on control 12-10-2019 Unclassified (5 sources) Rash - The onset of the rash [...] new foods, laundry detergents, etc. 04-18-2018 Unclassified (5 sources) Follow up for chronic condition - The [...] different medanxiety has gotten work 01-31-2018 Unclassified (5 sources) Anxiety - The anxiety has been occurring [...] as school and body with will shake. [place] that she has had a panic attack about once a week. 11-17-2017 Unclassified (5 sources) Cold Symptoms - Symptoms include nasal congestion, [...] respiratory infection : no appetite 03-07-2017 Unclassified (5 sources) Sore throat - The onset of the [...] had pain of her back. 03-10-2016 Unclassified (5 sources) Abdominal pain - The abdominal pain has [...] at school other than volleyball. 12-23-2014 Unclassified (5 sources) Well child visit #4 - 13 to [...] dealing with bullying at school when at [employer]; will go to [place] this year and is liking that it is smaller so far 09-21-2014 Unclassified (5 sources) UTI - Symptoms include dysuria, urinary frequency, [...] 2 weeks ago; continues OCP. 06-30-2014 Unclassified (5 sources) Well child visit #4 - 13 to [...] be on OCPs to prevent 09-08-2013 Unclassified (5 sources) Sore throat - The onset of the [...] improved; no nausea or vomitting 06-02-2013 Unclassified (5 sources) Dizziness - The onset of the dizziness [...] some allergy meds and tylenol 05-27-2013 Unclassified (5 sources) Form Completion Physicals - The patient feels [...] completion physical : Tdap 09/15/11. 08-26-2012 Unclassified (5 sources) Well child visit #4 - 13 to [...] belts and home smoke detectors. 09-15-2011 Unclassified (5 sources) Well child visit #3 - 4 to [...] 2 days. Otherwise no concerns. 08-30-2010 Unclassified (5 sources) Cold Symptoms - Symptoms include runny nose, [...] Time Vital Sign Value Performing Clinician Facility 04-02-2023 10:03-0500 Body weight 64.86 kg Kourtney Lorenzana MD Work Phone: [facility] 04-02-2023 10:03-0500 Diastolic blood pressure 60 mm[Hg] Kourtney Lorenzana MD Work Phone: [facility] 04-02-2023 10:03-0500 Systolic blood pressure 102 mm[Hg] Kourtney Lorenzana MD Work Phone: [facility] 03-22-2023 10:40-0500 Body height 165.1 cm Kourtney Lorenzana MD Work Phone: [facility] 03-22-2023 10:40-0500 Body weight 72.12 kg Kourtney Lorenzana MD Work Phone: [facility] 03-22-2023 10:40-0500 Diastolic blood pressure 80 mm[Hg] Kourtney Lorenzana MD Work Phone: [facility] 03-22-2023 10:40-0500 Heart rate 84 /min Kourtney Lorenzana MD Work Phone: [facility] 03-22-2023 10:40-0500 Respiratory rate 16 /min Kourtney Lorenzana MD Work Phone: [facility] 03-22-2023 10:40-0500 SaO2% (BldA) [Mass fraction] 100 % Kourtney Lorenzana MD Work Phone: [facility] 03-22-2023 10:40-0500 Systolic blood pressure 122 mm[Hg] Kourtney Lorenzana MD Work Phone: [facility] 01-10-2023 15:15-0500 Body weight 69.4 kg Ulices Padilla MD Work Phone: [facility] 01-10-2023 15:15-0500 Diastolic blood pressure 58 mm[Hg] Ulices Padilla MD Work Phone: [facility] 01-10-2023 15:15-0500 Systolic blood pressure 102 mm[Hg] Ulices Padilla MD Work Phone: [facility] 12-15-2022 09:00-0400 Body weight 67.31 kg Hayley Prabhakar APRN.CNM Work Phone: [facility] 12-15-2022 09:00-0400 Diastolic blood pressure 60 mm[Hg] Hayley Prabhakar APRN.CNM Work Phone: [facility] 12-15-2022 09:00-0400 Systolic blood pressure 110 mm[Hg] Hayley Prabhakar APRN.CNM Work Phone: [facility] 10-13-2022 08:59-0400 Body weight 65.77 kg Radha Plotts CELL FEED DEPARTMENT SUPERVISOR.CNM Work Phone: [facility] 10-13-2022 08:59-0400 Diastolic blood pressure 62 mm[Hg] Radha Plotts CELL FEED DEPARTMENT SUPERVISOR.CNM Work Phone: [facility] 10-13-2022 08:59-0400 Systolic blood pressure 98 mm[Hg] Radha Plotts CELL FEED DEPARTMENT SUPERVISOR.CNM Work Phone: [facility] 09-15-2022 09:57-0400 Body weight 67.59 kg Radha Plotts CELL FEED DEPARTMENT SUPERVISOR.CNM Work Phone: [facility] 09-15-2022 09:57-0400 Diastolic blood pressure 66 mm[Hg] Radha Plotts CELL FEED DEPARTMENT SUPERVISOR.CNM Work Phone: [facility] 09-15-2022 09:57-0400 Systolic blood pressure 108 mm[Hg] Radha Plotts CELL FEED DEPARTMENT SUPERVISOR.CNM Work Phone: [facility] 07-23-2022 09:21-0400 Body temperature 100.71 [degF] Emiliano Pendlegee CELL FEED DEPARTMENT SUPERVISOR.CUE SELECTOR Work Phone: [facility] 07-23-2022 09:21-0400 Body weight 71.58 kg Emilianopiyush Deng CELL FEED DEPARTMENT SUPERVISOR.CUE SELECTOR Work Phone: [facility] 07-23-2022 09:21-0400 Diastolic blood pressure 80 mm[Hg] Emiliano Pendlebury CELL FEED DEPARTMENT SUPERVISOR.CUE SELECTOR Work Phone: [facility] 07-23-2022 09:21-0400 Heart rate 108 /min Emiliano Deng CELL FEED DEPARTMENT SUPERVISOR.CUE SELECTOR Work Phone: [facility] 07-23-2022 09:21-0400 Respiratory rate 20 /min Emiliano Deng CELL FEED DEPARTMENT SUPERVISOR.CUE SELECTOR Work Phone: [facility] 07-23-2022 09:21-0400 SaO2% (BldA) [Mass fraction] 97 % Emiliano Deng CELL FEED DEPARTMENT SUPERVISOR.CUE SELECTOR Work Phone: [facility] 07-23-2022 09:040 Systolic blood pressure 112 mm[Hg] Emiliano Deng CELL FEED DEPARTMENT SUPERVISOR.CUE SELECTOR Work Phone: [facility] 12-10-2019 13:17040 Body height 165.74 cm Tayler Naidu LPN [facility], [facility].; [facility], [employer]. 12-10-2019 13:17040 Body mass index (BMI) [Ratio] 24.77 kg/m2 Tayler Naidu LPN [facility], [facility].; [facility], [facility]. 12-10-2019 13:040 Body surface area Derived from formula 1.76 m2 Tayler Naidu LPN [facility], [facility].; [facility], [facility]. 12-10-2019 13:040 Body weight 68.04 kg Tayler Naidu LPN [facility], [facility].; [facility], [employer]. 12-10-2019 13:17040 Diastolic blood pressure 81 mm[Hg] Tayler Naidu LPN [facility], [facility].; [facility], [employer]. Encounters Encounter Date Encounter Type Care Provider Facility Start: 04-02-2023 End: 04-02-2023 ambulatory CRYSTAL UPTAIN Facility:[facility] Start: 04-02-2023 End: 04-02-2023 Patient encounter procedure Kourtney Lorenzana MD Work Phone: OB/Gynecology Procedures Date Procedure Procedure Detail Performing Clinician Start: 03-22-2023 URINE OB DIP B/O Kourtney diaz MD Work Phone: Start: 01-10-2023 URINE OB DIP B/O Juliane Padilla MD Work Phone: Start: 10-13-2022 URINE OB DIP B/O Felipe Moreau CELL FEED DEPARTMENT SUPERVISOR.CNM Work Phone: Start: 09-15-2022 URINE OB DIP B/O Felipe Moreau APRN.CNAlejandrina Work Phone: Start: 08-21-2022 Antibody screen HAYLEY PRABHAKAR Plan of Treatment Date Care Activity Detail Author Start: 11-22-2033 Urine microalbumin profile [facility] Start: 09-18-2028 Urine microalbumin profile [facility] Start: 08-21-2025 PAP TESTING PAP TESTING [facility] Start: 08-21-2025 Screening for malign ant neoplasm of cervix Pap Testing [facility] Start: 08-22-2023 CHLAMYDIA SCREENING (18-24) CHLAMYDIA SCREENING (18-24) [facility] Start: 08-22-2023 GC (GONORRHEA) SCREE LILIA (18-24) GC (GONORRHEA) SCREENING (18-24) [facility] Start: 02-19-2023 Depression Assessment Depression Ass essment [facility] Start: 12-15-2022 End: 03-16-2023 CBC W Auto Differential panel - Blood CBC + DIFF Lab Routine with history of section, antepartum 24 weeks gestation of Expected: 12/15/2022, Expires: 03/16/2023 [facility] Work Phone: Immunizations Immunization Date Immunization Notes Care Provider Fa [facility] 02-16-2023 respiratory syncytia l virus (RSV) vaccine, bivalent (ABRYSVO) Kourtney Lorenzana MD Work Phone: [facility] 01-10-2023 tetanus toxoid, redu mayito diphtheria toxoid, and acellular pertussis vaccine, adsorbed Ulices Padilla MD Work Phone: [facility] 03-03-2021 influenza, seasonal, injectable, preservative free Ulices Padilla MD Work Phone: [facility] 03-03-2021 influenza virus vacc ine, unspecified formulation Hayley Prabhakar APRN.CNM Work Phone: [facility] 09-18-2018 tetanus toxoid, redu mayito diphtheria toxoid, and acellular pertussis vaccine, adsorbed Emilinao Deng APRN.CUE SELECTOR Work Phone: [facility] Work Phone: 09-08-2015 meningococcal polysaccharide (groups A, C, Y and W-135) diphtheria toxoid conjugate vaccine (MCV4P) Ulices Padilla MD Work Phone: [facility] Payers Date Payer Category Payer Unknown [id number] 2021 Unknown [id number] 1998 Unknown [id number] 1998 Unknown [id number] 1998 Unknown [id number] 1998 Unknown [id number] Unknown [id number] Unknown [id number] Social History Date Type Detail Facility Start: 07-23-2022 Tobacco smoking stat [facility] Never smoked tobacco [facility] Start: 07-23-2022 Tobacco use and exposure Smoke less tobacco non-user [facility] Start: 07-23-2022 End: 04-02-2023 Alcohol intake Lifetime non-drinker (finding) [facility] Start: 01-23-2019 History SDOH Alcohol Frequency 1 [facility] Start: 2000 Sex Assigned At Not on file [facility] Start: 08-14-2022 Education 16 [facility] Start: 07-08-2022 [facility] Start: 01-23-2019 End: 08-14-2022 History of Social function [place] [facility] Start: 01-23-2019 End: 08-14-2022 Alcohol Use Disorder Identification Test - Consumption [AUDIT-C] [facility] How often to you hav e a drink containing alcohol? Never [facility] Average Number of Drinks Not on file [facility] Tobacco/Smoke Exposure: Tobacco/ Smoke Exposure: ; None. [employer]. Female [employer] Work Phone: None [employer] Work Phone: Goals Date Patient Goal Desired Activity /State Personal health goal Clinical Notes 10-07-2018 to 04-02-2023 Kourtney Lorenzana MD - 04/02/2023 10:02 AM Diana Saenz RN - 03/26/2023 4:51 PM ESTPrenatal Quick Notes - Kourtney Lorenzana MD - 03/22/2023 10:52 AM Kourtney Wade MD - 03/22/2023 10:41 AM EST Note Date & Type Note Facility 04-02-2023 Note HNO ID: [id number] Author: KOURTNEY LORENZANA MD Service: ? Author Type: Physician Type: Progress Notes Filed: 04/02/2023 11:05 Note Text: EARLY VISIT Jacinto Bacon is a 22 year old here for 1 week visit. Delivery Summary: RLTCS Had rectus sheath hematoma and exploratory laparotomy with evacuation of hemoperitoneum and placement of hemostatic agents over left rectus muscle on POD#1 ROS: General: Denies any fever or chills Hypertension Screening: Headache? No. Visual Changes? No Epigastric Pain? No Increased Swelling? No Taking any BP medications at home? No If applicable, monitoring BP at home? (If Yes, include results) NA Mood: normal Depression: denies symptoms of depression. OB Depression and Anxiety Screening- This Encounter (since 04/01/2023) Over the past 2 weeks have you felt down, depressed, or hopeless? Negative Over the past two weeks, have you felt little interest or pleasure in doing things?? Negative Feeling nervous, anxious or on edge 0-Not at all Not being able to stop or control worrying 0-Not al all Anxiety Pre-Screening Total (If >/= 3 additional questions will be reviewed) 0 Feeding: Breast feeding problems: None Bladder: No dysuria, gross hematuria, urinary frequency, urinary urgency, or incontinence Bowel symptoms: Negative for abdominal discomfort, blood in stools or black stools and change in bowel habits Abdomen: She reports no incisional redness, tenderness, erythema Bleeding: none Bottom and Perineum: No issues Sleep: no sleep concerns, sleeps in bassinet/crib in parent's room, and number of hours of overnight sleep - up every 2 hours, does not feel rested [place] since delivery: Not resumed Emotional support: Yes Exercise: N/A Other issues: Still has cough and when in a coughing spell has a warm sensation in the incision area PHYSICAL EXAMINATION: Wt 143 lb (64.9 kg) LMP 06/24/2022 (Exact Date) Yes BMI 23.80 kg/m? General: pleasant,female in no apparent distress, AANDO x 3. Skin warm and intact. Breast: Deferred Abdomen: soft, non-tender, and no masses /Incision: No incisional redness, swelling, or drainage Pelvic: Deferred Bimanual: Deferred ASSESSMENT AND PLAN: 22 year old status post CS with course complicated by hemorrhage and anemia. Contraception plan: Reinforced 6-week pelvic rest. Encouraged condom usage should patient deviate. Education: resources provided - see MA/RN note Reviewed post operative care and restrictions. Follow up: Return to Clinic for 6 week visit and as needed Kourtney Lorenzana DO [facility] 04-02-2023 History of Presen t illness Narrative EARLY VISIT Jacinto Bacon is a 22 year old here for 1 week visit. Delivery Summary: RLTCS Had rectus sheath hematoma and exploratory laparotomy with evacuation of hemoperitoneum and placement of hemostatic agents over left rectus muscle on POD#1 ROS: General: Denies any fever or chills Hypertension Screening: Headache? No. Visual Changes? No Epigastric Pain? No Increased Swelling? No Taking any BP medications at home? No If applicable, monitoring BP at home? (If Yes, include results) NA Mood: normal Depression: denies symptoms of depression. OB Depression and Anxiety Screening- This Encounter (since 04/01/2023) Over the past 2 weeks have you felt down, depressed, or hopeless? Negative Over the past two weeks, have you felt little interest or pleasure in doing things? Negative Feeling nervous, anxious or on edge 0-Not at all Not being able to stop or control worrying 0-Not al all Anxiety Pre-Screening Total (If >/= 3 additional questions will be reviewed) 0 Feeding: Breast feeding problems: None Bladder: No dysuria, gross hematuria, urinary frequency, urinary urgency, or incontinence Bowel symptoms: Negative for abdominal discomfort, blood in stools or black stools and change in bowel habits Abdomen: She reports no incisional redness, tenderness, erythema Bleeding: none Bottom and Perineum: No issues Sleep: no sleep concerns, sleeps in bassinet/crib in parent's room, and number of hours of overnight sleep - up every 2 hours, does not feel rested [place] since delivery: Not resumed Emotional support: Yes Exercise: N/A Other issues: Still has cough and when in a coughing spell has a warm sensation in the incision area PHYSICAL EXAMINATION: Wt 143 lb (64.9 kg) LMP 06/24/2022 (Exact Date) Yes BMI 23.80 kg/m General: pleasant,female in no apparent distress, A&O x 3. Skin warm and intact. Breast: Deferred Abdomen: soft, non-tender, and no masses /Incision: No incisional redness, swelling, or drainage Pelvic: Deferred Bimanual: Deferred ASSESSMENT AND PLAN: 22 year old status post CS with course complicated by hemorrhage and anemia. Contraception plan: Reinforced 6-week pelvic rest. Encouraged condom usage should patient deviate. Education: resources provided - see MA/RN note Reviewed post operative care and restrictions. Follow up: Return to Clinic for 6 week visit and as needed Kourtney Lorenzana DO documented in this encounter [facility] 03-26-2023 Note HNO ID: [id number] Author: DIANA KIMBROUGH RN Service: ? Author Type: Registered Nurse Type: Progress Notes Filed: 03/26/2023 16:53 Note Text: Patient delivered via by Dr. Lorenzana on 03/26/23 at [facility]. See OB history. Diana Kimbrough RN [facility] 03-26-2023 History of Presen t illness Narrative Patient delivered via by Dr. Lorenzana on 03/26/23 at [facility]. See OB history. Diana Kimbrough RN documented in this encounter [facility] 03-22-2023 Miscellaneous Notes Formattin g of this note might be different from the original. SW- Pre op today. documented in this encounter [facility] 03-22-2023 History and physical note Pre-Op History and Physical HPI: The patient is a 22 year old female presenting for pre-operative visit. She is scheduled for , for history prior section on 03/26/23. Procedure discussed along with risks, benefits and complications. Other alternatives discussed for management. Consent form signed? Yes. PAST MEDICAL HISTORY Diagnosis Date Anxiety/depression Mental disorder PAST SURGICAL HISTORY Procedure Laterality Date SNGL 12/03/2018 Current Outpatient Medications Medication Sig Dispense Refill famotidine (PEPCID) 40 mg tablet Take 1 tablet by mouth once daily. 30 tablet 3 prental multivitamin 27 mg iron- 800 mcg tablet Take 1 tablet by mouth once daily. acetaminophen (TYLENOL) 325 mg tablet Take 650 mg by mouth every 6 hours as needed. No current facility-administered medications for this visit. ALLERGIES: Seasonal Allergies PERSONAL HISTORY: Social History Tobacco Use Smoking status: Never Smokeless tobacco: Never Vaping Use Vaping Use: Never used Substance Use Topics Alcohol use: Never Drug use: Never FAMILY HISTORY: FAMILY HISTORY Problem Relation Age of Onset No Known Problems Mother No Known Problems Father No Known Problems Brother No Known Problems Maternal Grandmother No Known Problems Maternal Grandfather No Known Problems Paternal Grandmother Blood Clots Paternal Grandfather Lymphoma Paternal Grandfather No Known Problems Son REVIEW OF SYMPTOMS: negative except as noted above PHYSICAL EXAMINATION: VITALS: Last menstrual period 06/24/2022. GENERAL: The patient is well nourished, well hydrated in no acute distress. The patient is oriented to time, place, and person. NECK: Supple. LUNGS: No wheezing or increased resp effort. HEART: Regular rate. IMPRESSION: pre op for repeat section PLAN: pre op for repeat section Discussed repeat section in detail including r/b/a. I have reviewed and updated past medical and surgical history, medications and allergies Kourtney Lorenzana DO Medical Decision Making: Problems: Moderate: New problem with uncertain prognosis Risk: High: Decision on elective major surgery w/ risk factors Medical Decision Making Level: 4 - Moderate documented in this encounter [facility] 03-22-2023 Vivian Baig Ma - 03/22/2023 10:41 AM EST SEQUENTIAL SCREENINGS The [facility] offers sequential screenings for women who are [...] It will require an appointment with our delivery technician. This is not an ultrasound performed [...] the above symptoms, contact our office at [phone] and ask to speak with a nurse. After hours, you can call doctors registry at [phone] OR call [facility] at [phone] and ask to have the doctor honey blender paged. If you consider this an emergency, dial 0-0-2 or go to your nearest emergency department. NEED HELP? Are you dealing with a violent or abusive relationship? Are you a victim of rape or sexual assult? Call [facility] ([facility] 24 hour Crisis Hotline: 795.265.2423 or 346-619-5729. MANUAL Your Guide to a Healthy manual is now on-line. Visit [email or web address] to download your free copy documented in this encounter [facility] 03-09-2023 Note HNO ID: [id number] Author: CHIP ACEVEDO APRN.CUE SELECTOR Service: ? Author Type: Nurse Practitioner Type: [...] in 3-5 days if symptoms worsening -notify blanking machine operator of positive test. 2. URI, acute - ICD9: 465.9, ICD10: J06.9 - Discussed viral etiology and rationale for treatment. - Symptomatic treatment with prn analgesia - Supportive care with fluids and rest - INFLUENZA AANDB MOLECULAR (POC) Chip Acevedo APRN.MONTRELL [facility] 01-26-2023 Miscellaneous Notes Formattin g of this note might be different from the original. [facility] paperwork completed. 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 Copy scanned into EMR and filed in [facility] MATTING MACHINE OPERATOR suite. Lavinia Vallejo LPN [facility] paperwork completed and placed on providers desk for signature. Lavinia Vallejo LPN documented in this encounter [facility] 01-10-2023 Note HNO ID: [id number] Author: Vivian Woodard Ma Service: ? Author [...] severely ill: Yes Patient denies history of Guillain-Ryderwood Syndrome (a severe paralytic illness): Yes Tdap Adacel injection was given without incident. See immunizations for details of immunizations administered today. VIS sheet provided: Yes Provider Dr Padilla was present in office at time of injection. Vivian Woodard Ma [facility] 01-10-2023 Miscellaneous Notes Formattin g of [...] Ulices Padilla M.D. documented in this encounter [facility] 01-10-2023 History of Presen t illness Narrative [...] severely ill: Yes Patient denies history of Guillain-Ryderwood Syndrome (a severe paralytic illness): Yes Tdap Adacel injection was given without incident. See immunizations for details of immunizations administered today. VIS sheet provided: Yes Provider Dr Padilla was present in office at time of injection. Vivian Woodard Ma documented in this encounter [facility] 01-10-2023 Instructions Vivian Woodard Ma - 01/10/2023 2:55 PM EST SEQUENTIAL SCREENINGS The [facility] offers sequential screenings for women who are [...] It will require an appointment with our delivery technician. This is not an ultrasound performed [...] the above symptoms, contact our office at [phone] and ask to speak with a nurse. After hours, you can call doctors registry at [phone] OR call [facility] at [phone] and ask to have the doctor honey blender paged. If you consider this an emergency, dial 9-1-6 or go to your nearest emergency department. NEED HELP? Are you dealing with a violent or abusive relationship? Are you a victim of rape or sexual assult? Call [facility] ([place]) 24 hour Crisis Hotline: 879.731.4596 or 883-677-0770. MANUAL Your Guide to a Healthy manual is now on-line. Visit [email or web address] [email or web address] to download your free copy documented in this encounter [facility] 12-15-2022 Miscellaneous Notes Formattin g of this [...] vaccine and planning to get next visit. Hayley Prabhakar APRN.CNM documented in this encounter [facility] 12-15-2022 Instructions Nick Reddy Cma - 12/15/2022 8:53 AM EDT SEQUENTIAL SCREENINGS The [facility] offers sequential screenings for women who are [...] It will require an appointment with our delivery technician. This is not an ultrasound performed [...] the above symptoms, contact our office at [phone] and ask to speak with a nurse. After hours, you can call doctors registry at [phone] OR call [facility] at [phone] and ask to have the doctor honey blender paged. If you consider this an emergency, dial or go to your nearest emergency department. NEED HELP? Are you dealing with a violent or abusive relationship? Are you a victim of rape or sexual assult? Call [facility] ([place]) 24 hour Crisis Hotline: 936.358.1394 or 410-198-6545. MANUAL Your Guide to a Healthy manual is now on-line. Visit [email or web address] [email or web address] to download your free copy documented in this encounter [facility] 10-13-2022 Miscellaneous Notes Formattin g of this [...] weeks for ORTIZ with anatomy US. Radha Moreau APRN.CNM documented in this encounter [facility] 10-13-2022 Instructions Nick Reddy Cma - 10/13/2022 8:53 AM EDT SEQUENTIAL SCREENINGS The [facility] offers sequential screenings for women who are [...] It will require an appointment with our delivery technician. This is not an ultrasound performed [...] the above symptoms, contact our office at [phone] and ask to speak with a nurse. After hours, you can call doctors registry at [phone] OR call [facility] at [phone] and ask to have the doctor honey blender paged. If you consider this an emergency, dial 5-9-5 or go to your nearest emergency department. NEED HELP? Are you dealing with a violent or abusive relationship? Are you a victim of rape or sexual assult? Call [facility] ([place]) 24 hour Crisis Hotline: 636.579.9209 or 419-047-4051. MANUAL Your Guide to a Healthy manual is now on-line. Visit [email or web address] [email or web address] to download your free copy documented in this encounter [facility] 10-12-2022 Note HNO ID: [id number] Author: Hayley Prabhakar APRN.CNM Service: ? Author Type: Process Developer Type: Progress Notes Filed: 10/12/2022 9:43 AM Note Text: OB point of care ultrasound was performed. See imaging tab for details. Hayley Prabhakar APRN.CNM [facility] 10-12-2022 History of Presen t illness Narrative OB point of care ultrasound was performed. See imaging tab for details. Hayley Prabhakar APRN.CNM documented in this encounter [facility] 09-15-2022 Miscellaneous Notes Formattin g of this [...] 4 weeks or sooner if needed. Radha Moreau APRN.CNM documented in this encounter [facility] 09-15-2022 Instructions Nick Reddy Cma - 09/15/2022 9:51 AM EDT SEQUENTIAL SCREENINGS The [facility] offers sequential screenings for women who are [...] It will require an appointment with our delivery technician. This is not an ultrasound performed [...] the above symptoms, contact our office at [phone] and ask to speak with a nurse. After hours, you can call doctors registry at [phone] OR call [facility] at [phone] and ask to have the doctor honey blender paged. If you consider this an emergency, dial 9--8 or go to your nearest emergency department. NEED HELP? Are you dealing with a violent or abusive relationship? Are you a victim of rape or sexual assult? Call [facility] ([place]) 24 hour Crisis Hotline: 146.197.4577 or 630-846-3986. MANUAL Your Guide to a Healthy manual is now on-line. Visit [email or web address] [email or web address] to download your free copy documented in this encounter [facility] 08-21-2022 Note HNO ID: [id number] Author: Hayley Prabhakar APRN.REGINE Service: ? Author Type: Process Developer Type: Progress Notes Filed: 08/21/2022 11:14 AM [...] use: No Multivitamin with Folic acid: Yes Rastafarian or heritage: No Would refuse blood transfusion if medically necessary: No Are you currently employed? 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 [facility] 08-14-2022 Note HNO ID: [id number] Author: Laila Jimenez RN Service: ? Author [...] None, Apgar5: None, Living: None, Comments: None [facility] 08-14-2022 Miscellaneous Notes Formattin g of [...] testing.Laila Jimenez RN documented in this encounter [facility] 08-14-2022 History of Presen t illness Narrative [...] None, Comments: None documented in this encounter [facility] 08-09-2022 Miscellaneous Notes Formattin g of this note might be different from the original. Patient scheduled Left message for patient to return phone call. Patient has an appointment with Loi Prabhakar for NOB appointment. Please schedule PNOB appointment. documented in this encounter [facility] 07-23-2022 Note HNO ID: [id number] Author: Emiliano Deng APRN.MONTRELL Service: ? Author Type: Nurse Practitioner Type: Progress Notes Filed: 07/23/2022 9:44 AM Note Text: Subjective HPI Nontoxic-appearing female presents urgent care chief complaint flulike symptoms. Duration of symptoms 2 days Associated symptoms with today's chief complaint are on and off headache, muscle aches, fatigue, nonproductive cough, diarrhea, ear pain, and fever. Patient stated symptoms started abruptly. Patient states they have used wgva-rvx-symuuno medication with some success. Patient states they [...] of care. This note was generated using Werdsmith software. It may contain errors in wording, (more content not included)... [facility] 07-23-2022 History of Presen t illness Narrative Subjective HPI Nontoxic-appearing female presents urgent care chief complaint flulike symptoms. Duration of symptoms 2 days Associated symptoms with today's chief complaint are on and off headache, muscle aches, fatigue, nonproductive cough, diarrhea, ear pain, and fever. Patient stated symptoms started abruptly. Patient states they have used fsti-xii-pgcgnlc medication with some success. Patient states they [...] of care. This note was generated using [employer]mith software. It may contain errors in wording, punctuation, or spelling. Emiliano Deng APRN.CNP documented in this encounter [facility] documented as of this encounter (statuses as of 07/23/2022) [facility] History of Past illness Narrative* Problem Noted Date Resolved Date Elevated liver enzymes 10/07/2018 9 Overview: 10/07/18-AST 50. No signs of pre-e.Hayley Prabhakar APRN.CNM Patient requested diagnostic testing 05/09/2018 11/29/2018 Overview: 05/09/2018Patient desires nuchal ultrasound. Declines CF carrier screening testing. TKRN documented as of this encounter (statuses as of 08/09/2022) [facility] History of Past illness Narrative* Problem Noted Date Resolved Date Elevated liver enzymes 10/07/2018 9 Overview: 10/07/18-AST 50. No signs of pre-e.Hayley Prabhakar APRN.CNM Patient requested diagnostic testing 05/09/2018 11/29/2018 Overview: 05/09/2018Patient desires nuchal ultrasound. Declines CF carrier screening testing. TKRN documented as of this encounter (statuses as of 08/14/2022) [facility] of Past illness Narrative* Problem Noted Date Diagnosed Date Resolved Date Elevated liver enzymes 10/07/201801/23 Overview: 10/07/18-AST 50. No signs of pre-e.Hayley Prabhakar APRN.CNM Patient requested diagnostic testing 05/09/2018 11/29/2018 Overview: 05/09/2018Patient desires nuchal ultrasound. Declines CF carrier screening testing. TKRN documented as of this encounter (statuses as of 09/15/2022) [facility] History of Past illness Narrative* Problem Noted Date Diagnosed Date Resolved Date Elevated liver enzymes 10/07/201801/23 Overview: 10/07/18-AST 50. No signs of pre-e.Hayley Prabhakar APRN.CNM Patient requested diagnostic testing 05/09/2018 11/29/2018 Overview: 05/09/2018Patient desires nuchal ultrasound. Declines CF carrier screening testing. TKRN documented as of this encounter (statuses as of 10/12/2022) [facility] History of Past illness Narrative* Problem Noted Date Diagnosed Date Resolved Date Elevated liver enzymes 10/07/201801/23 Overview: 10/07/18-AST 50. No signs of pre-e.Hayley Prabhakar APRN.CNM Patient requested diagnostic testing 05/09/2018 11/29/2018 Overview: 05/09/2018Patient desires nuchal ultrasound. Declines CF carrier screening testing. TKRN documented as of this encounter (statuses as of 10/13/2022) [facility] of Past illness Narrative* Problem Noted Date Diagnosed Date Resolved Date Elevated liver enzymes 10/07/201801/23 Overview: 10/07/18-AST 50. No signs of pre-e.Hayley Prabhakar APRN.CNM Patient requested diagnostic testing 05/09/2018 11/29/2018 Overview: 05/09/2018Patient desires nuchal ultrasound. Declines CF carrier screening testing. TKRN documented as of this encounter (statuses as of 12/15/2022) [facility] of Past illness Narrative* Problem Noted Date Diagnosed Date Resolved Date Elevated liver enzymes 10/07/201801/23 Overview: 10/07/18-AST 50. No signs of pre-e.Hayley Prabhakar APRN.CNM Patient requested diagnostic testing 05/09/2018 11/29/2018 Overview: 05/09/2018Patient desires nuchal ultrasound. Declines CF carrier screening testing. TKRN documented as of this encounter (statuses as of 01/10/2023) [facility] of Past illness Narrative* Problem Noted Date Diagnosed Date Resolved Date Elevated liver enzymes 10/07/201801/23 Overview: 10/07/18-AST 50. No signs of pre-e.Hayley Prabhakar APRN.CNM Patient requested diagnostic testing 05/09/2018 11/29/2018 Overview: 05/09/2018Patient desires nuchal ultrasound. Declines CF carrier screening testing. TKRN documented as of this encounter (statuses as of 01/26/2023) [facility] of Past illness Narrative* Problem Noted Date Diagnosed Date Resolved Date Elevated liver enzymes 10/07/201801/23 Overview: 10/07/18-AST 50. No signs of pre-e.Hayley Prabhakar APRN.CNM Patient requested diagnostic testing 05/09/2018 11/29/2018 Overview: 05/09/2018Patient desires nuchal ultrasound. Declines CF carrier screening testing. TKRN documented as of this encounter (statuses as of 03/26/2023) [facility] of Past illness Narrative* Problem Noted Date Diagnosed Date Resolved Date Elevated liver enzymes 10/07/201801/23 Overview: 10/07/18-AST 50. No signs of pre-e.Hayley Prabhakar APRN.CNM Patient requested diagnostic testing 05/09/2018 11/29/2018 Overview: 05/09/2018Patient desires nuchal ultrasound. Declines CF carrier screening testing. TKRN documented as of this encounter (statuses as of 03/27/2023) [facility] History of Past illness Narrative* Problem Noted Date Diagnosed Date Resolved Date Elevated liver enzymes 10/07/201801/23 Overview: 10/07/18-AST 50. No signs of pre-e.Hayley Prabhakar APRN.CNM Patient requested diagnostic testing 05/09/2018 11/29/2018 Overview: 05/09/2018Patient desires nuchal ultrasound. Declines CF carrier screening testing. TKRN documented as of this encounter (statuses as of 04/02/2023) [facility] [place] [facility] Diagnosis Sore throat- Primary Acute pharyngitis Viral illness Unspecified viral infection, in conditions classified elsewhere and of unspecified site documented [facility] [place] [facility] Diagnosis with history of section, antepartum- Primary History of anxiety/depression Personal history of other mental disorder [facility] [place] [facility]* Diagnosis 11 weeks gestation of - Primary state, incidental [facility] [place] [facility]* Diagnosis with uncertain dates in first trimester- Primary [facility] [place] [facility]* Diagnosis 15 weeks gestation of - Primary state, incidental [facility] [place] [facility]* Diagnosis with history of section, antepartum- Primary 24 weeks gestation of state, incidental [facility] Diagnosis 28 weeks gestation of - Primary state, incidental with history of section, antepartum Need for vaccination Need for prophylactic vaccination and inoculation against unspecified single disease [facility] Diagnosis Encounter for supervision of other normal in third trimester- Primary with history of section, antepartum 38 weeks gestation of state, incidental [facility] [place] [facility]* Diagnosis Status post section routine follow-up- Primary Routine follow-up state Routine follow-up documented in this encounter [facility] Summary Purpose Family History No Family History Records Found Lung Cancer Status:Active Comments:Materna l Grandfather. Son 1 Status:Active Comments:Rick Lung Cancer Status:Active Comments:Materna l Grandfather. Son 1 Status:Active Comments:Rick Lung Cancer Status:Active Comments:Materna l Grandfather. Son 1 Status:Active Comments:Rick Lung Cancer Status:Active Comments:Materna l Grandfather. Son 1 Status:Active Comments:Rick Lung Cancer Status:Active Comments:Materna l Grandfather. Son 1 Status:Active Comments:Rick Advance Directives No Advanced Directives Records FoundNo Advanced Directives Records FoundNo Advanced Directives Records FoundNo Advanced Directives Records Found Health Concerns Problem Noted Date Diagnosed Date [facility] - [facility] 08/21/2022 Education - [place] 08/21/2022 Problem Noted Date Diagnosed Date [facility] - [facility] 08/21/2022 Education - [place] 08/21/2022 Problem Noted Date Diagnosed Date [facility] - [facility] 08/21/2022 Education - [place] 08/21/2022 Problem Noted Date Diagnosed Date [facility] - [facility] 08/21/2022 Education - [place] 08/21/2022 Problem Noted Date Diagnosed Date [facility] - [facility] 08/21/2022 Education - [place] 08/21/2022 Problem Noted Date Diagnosed Date [facility] - [facility] 08/21/2022 Education - [place] 08/21/2022 Problem Noted Date Diagnosed Date [facility] - [facility] 08/21/2022 Education - [place] 08/21/2022 Problem Noted Date Diagnosed Date [facility] - [facility] 08/21/2022 Education - [place] 08/21/2022 Additional Source Comments INFORMATION SOURCE (unrecogn ized section and content) DATE CREATED AUTHOR AUTHOR'S ORGANIZ ATION 12/18/2019 [facility] DATE CREATED AUTHOR AUTHOR'S ORGANIZ ATION [facility]15/2020 [facility] DATE CREATED AUTHOR AUTHOR'S ORGANIZ ATION 04/03/2023 [facility] Source Comments (unrecognize d section and content) In the event this informatio n is protected by the Federal Confidentiality of Alcohol and Drug Abuse Patient Records regulations: The Federal rules restrict any use of the information to criminally investigate or prosecute any alcohol or drug abuse patient.[facility] the event this information is protected by the Federal Confidentiality of Alcohol and Drug Abuse Patient Records regulations: The Federal rules restrict any use of the information to criminally investigate or prosecute any alcohol or drug abuse patient.[facility] the event this information is protected by the Federal Confidentiality of Alcohol and Drug Abuse Patient Records regulations: The Federal rules restrict any use of the information to criminally investigate or prosecute any alcohol or drug abuse patient.[facility] HospitalIn the event this information is protected by the Federal Confidentiality of Alcohol and Drug Abuse Patient Records regulations: The Federal rules restrict any use of the information to criminally investigate or prosecute any alcohol or drug abuse patient.[facility] HospitalIn the event this information is protected by the Federal Confidentiality of Alcohol and Drug Abuse Patient Records regulations: The Federal rules restrict any use of the information to criminally investigate or prosecute any alcohol or drug abuse patient.[facility] HospitalIn the event this information is protected by the Federal Confidentiality of Alcohol and Drug Abuse Patient Records regulations: The Federal rules restrict any use of the information to criminally investigate or prosecute any alcohol or drug abuse patient.[facility] HospitalIn the event this information is protected by the Federal Confidentiality of Alcohol and Drug Abuse Patient Records regulations: The Federal rules restrict any use of the information to criminally investigate or prosecute any alcohol or drug abuse patient.[facility] HospitalIn the event this information is protected by the Federal Confidentiality of Alcohol and Drug Abuse Patient Records regulations: The Federal rules restrict any use of the information to criminally investigate or prosecute any alcohol or drug abuse patient.[facility] HospitalIn the event this information is protected by the Federal Confidentiality of Alcohol and Drug Abuse Patient Records regulations: The Federal rules restrict any use of the information to criminally investigate or prosecute any alcohol or drug abuse patient.[facility] HospitalIn the event this information is protected by the Federal Confidentiality of Alcohol and Drug Abuse Patient Records regulations: The Federal rules restrict any use of the information to criminally investigate or prosecute any alcohol or drug abuse patient.[facility] HospitalIn the event this information is protected by the Federal Confidentiality of Alcohol and Drug Abuse Patient Records regulations: The Federal rules restrict any use of the information to criminally investigate or prosecute any alcohol or drug abuse patient.[facility] HospitalIn the event this information is protected by the Federal Confidentiality of Alcohol and Drug Abuse Patient Records regulations: The Federal rules restrict any use of the information to criminally investigate or prosecute any alcohol or drug abuse patient.[facility] Reason for Visit (unrecogniz ed section and content) Reason Comments Future Appointment Reason Comments Care Reason Onset Date Comments Care 09/15/2022 Reason Onset Date Comments Care 10/13/2022 Reason Onset Date Comments Care 12/15/2022 Reason Onset Date Comments Care 01/10/2023 Reason Comments FMLA Paperwork Reason Onset Date Comments Care 03/22/2023 Reason Comments Ob Delivery Note Reason Comments Early Care Teams (unrecognized sec tion and content) Instructor Bus Trolley [employer] Taxi Relationship Specialty Start Date End Date Acacia Oscar CNM [address] [place] [address] PCP - General Conductor/Brakeman 03/09/23 Instructor Bus Trolley And Tax[employer] Relationship Specialty Start Date End Date Acacia Oscar CNM [address] [address] PCP - General Conductor/Brakeman 03/09/23 FOR RECORDS PERTAINING TO PATIENTS WHO ARE [...] BE BASED ON THE PRIMARY CLINICAL RECORDS. [facility] provides no warranty or guarantee of the accuracy or completeness of information in this document.
[2023-04-14] MEDS: Ondansetron 4 MG/2 ML Vial IV ×2 (02:11→15:09)
[2023-04-14] MEDS: 0.9% Normal Saline (1000mL) 1,000 ML 999 ML IV (02:11)
[2023-04-14] MEDS: Morphine 4 MG/ML Syringe IV ×2 (02:11→04:39)
[2023-04-14 02:28] LABS: Absolute Lymphocyte Count 3.17 X10^3/uL (0.83-4.51); Absolute Neutrophil Count 5.7 X10^3/uL (2.0-7.7); Basophil# 0.12 X10^3/uL; Eosinophil# 1.88 X10^3/uL; Eosinophils% 16.2 % (0-5); Hematocrit 42.1 % (37-47); Lymphocyte # 3.17 X10^3/ul (0.83-4.51); Lymphocyte % 27.3 % (19-41); Mean Corp Hgb Conc 30.9 g/dL (32-36); Mean Corpuscular Hgb 27.2 pg (27.0-32.0); Mean Corpuscular Volume 88.1 fL (81-99); Mean Platelet Vol. 9.4 fl (6.2-12.0); Monocyte# 0.69 X10^3/uL; Monocyte% 5.9 % (0-10); NRBC Flagged by Analyzer 0 % (0-5); Neutrophil # 5.73 X10^3/uL (2.7-7.7); Neutrophil % 49.3 % (47-70); Platelet Count 412 K/mm3 (150-450); RBC Distribution Width CV 13.2 % (11.6-14.6); RBC Distribution Width SD 42.9 fl (35.1-43.9); Red Blood Count 4.78 M/mm3 (4.2-5.4); White Blood Count 11.6 K/mm3 (4.4-11.0)
[2023-04-14 02:51] LABS: Anion Gap 4 (5-15); BUN 18 mg/dL (7-18); BUN/Creat Ratio 26.4 RATIO (10-20); Calcium,Total 9.6 mg/dL (8.5-10.1); Chloride 107 mmol/L (98-107); Creatinine, Serum 0.68 mg/dL (0.55-1.02); EST Glomerular Filtration Rate 112 mL/min (>60); Est Glom Filt Rate - Afr Amer 136 mL/min (>60); Estimated Creatinine Clearance 114.79 ml/min; Glucose 117 mg/dL (74-106); Potassium 3.9 mmol/L (3.5-5.1); Sodium Level 140 mmol/L (136-145)
[2023-04-14 04:38] LABS: Bacteria 0 SEEN /hpf (None Seen); Mucous, Urine 0 SEEN /hpf (<or=2+); Red Blood Cells-Urine 0 SEEN /hpf (0-5); Squamous Epithelial Cells - UA 0 SEEN /hpf (5-10); White Blood Cells 0 SEEN /hpf (0-5)
[2023-04-14 04:40] LABS: Cholesterol 202 mg/dL (200); High Density Lipoprotein 45 mg/dL; Lipase 43 U/L (13-75); Triglycerides 108 mg/dL; Very Low Density Lipoprotein 22 mg/dL (5-40)
[2023-04-14 04:57] LABS: Color, Urine Yellow (Yellow); Glucose, Dipstick Normal (Normal); Ketone-Dipstick Negative (Negative); Leukocyte Esterase-Dipstick 100 /ul (Negative); Nitrite-Dipstick Negative (Negative); Occult Blood-Urine 10 /ul (Negative); Protein-Dipstick Negative (Negative); Urine Bilirubin Dipstick Negative (Negative); Urine Clarity Clear (Clear); Urine Urobilinogen Normal (Normal)
[2023-04-14 05:00] LABS: AST(SGOT) 35 U/L (15-37); Alanine Aminotransfer ALT/SGPT 26 U/L (13-56); Albumin, Serum 3.4 g/dL (3.2-5.0); Alkaline Phosphatase 135 U/L (45-117); Bilirubin, Direct 0.13 mg/dL (0.00-0.30); Protein, Total 7.4 g/dL (6.4-8.2)
--- NOTE | 2023-04-14 05:09 | US_ITS ---
STUDY: ABDOMINAL ULTRASOUND - RIGHT UPPER QUADRANT REASON FOR VISIT: Female, 22 years old Abdominal pain/abnormal CT scan TECHNIQUE: Ultrasound evaluation of the right upper quadrant was performed with real-time and static newman-scale imaging. TECHNICAL QUALITY: Adequate. COMPARISON: CT scan from earlier today FINDINGS: Liver: The liver measures 15.6 cm. There is normal echogenicity of the liver. The bile ducts are within normal limits. There is hepatic color flow. The direction of portal flow is hepatopetal. There is no demonstrated mass lesion. Gallbladder: There is a distended gallbladder. The gallbladder wall measures 1.6 mm. There is a negative sonographic Galicia''s sign. There is pericholecystic fluid. There are multiple echogenic structures within the gallbladder, consistent with multiple gallstones. Common Bile Duct (C.B.D.): The common bile duct measures 7.2 mm. Pancreas: Normal size of the head, body and tail of the pancreas. There is normal echogenicity of the pancreas. There is no demonstrated pancreatic mass or cyst. Right Kidney: Normal size of the right kidney. Right kidney has the appearance of the medullary sponge kidney. The right kidney measures 10.6 x 6.2 x 4.8 cm. Normal renal cortex. The right cortex measures 0.9 cm. There is no demonstrated renal mass or cyst. There is mild hydronephrosis of the right kidney, etiology is not demonstrated on the study. US/Gallbladder IMPRESSION: Distended gallbladder without gallbladder wall thickening but there is evidence of pericholecystic fluid, gallstones and common bile duct dilatation. The sonographic findings are equivocal for cholecystitis, but when compared with the findings of the CT scan, cholecystitis is likely. Please correlate with lab and physical findings and surgical consultation is recommended Right kidney shows sonographic evidence to suspect medullary sponge kidney with mild right hydronephrosis of uncertain etiology Electronically Signed: Pierre Street MD at 9:46 EST ,
--- NOTE | 2023-04-14 05:10 | EX.ED.DYSGE1 ---
HPI History of Present Illness Chief Complaint: Abd Pain Informant: patient and spouse/S.O. Narrative Narrative: Patient is a 22-year-old female who underwent on March 26 followed by repeat surgery secondary to a rectus hematoma on March 28. She states that after that surgery she was doing much better and her pain was essentially resolved. However she noticed some discomfort on Sunday evening which progressed throughout the night. She states that the pain seemed to start in the mid to low back and then radiated into her abdomen and worsened throughout the evening. She states there is nausea from the pain but has not had any vomiting she denies any vaginal bleeding or discharge she denies any dysuria fevers or chills diarrhea or constipation. She also states she does not have a history of bleeding disorder nor she on blood thinners. However with the increased pain she presents for evaluation [facility] Medical History Anxiety Depression Diarrhea Difficulty balancing when standing Encounter for screening for COVID-19 Fatigue Severe headache SOB (shortness of breath) Home Medications [id number] 400 mcg-om3 35 mg-dha 25 mg-epa 5 mg-fish oil chewable tablet 1 tab PO DAILY 03/26/23 [History Last Taken 03/23/23 08:00 1 TAB] Allergy/AdvReac Type Severity Reaction Status Date / Time No Known Allergies Allergy Verified 04/14/23 01:28 Surgical History Delivery by section Hx of section Social History Smoking Status: Never smoker alcohol intake: never ROS ROS ED Constitutional Constitutional ED: Denies chills or fever(s) ENT ENT ED: Denies sore throat Cardiovascular Cardiovascular: Denies chest pain Respiratory/Chest Respiratory/Chest: Denies cough or dyspnea Gastrointestinal Gastrointestinal: Reports abdominal pain and nausea; Denies constipation, diarrhea or vomiting Genitourinary Genitourinary ED: Denies dysuria or hematuria Musculoskeletal Musculoskeletal: Reports back pain; Denies myalgias Integumentary Denies rash Neurologic Neurologic: Denies headache(s) Hematologic/Lymphatic Hematologic/Lymphatic: Denies easy bleeding or easy bruising EXAM Physical Exam Const Vital Signs: 04/14/23 01:28 04/14/23 01:32 Temperature 97.7 F L Temperature Source Oral Pulse Rate 95 Respiratory Rate 21 H Blood Pressure 112/97 H 122/93 H Blood Pressure Mean 102 102 Pulse Ox 100 Positive well nourished and well developed General Appearance ED: well developed; Negative for pallor HEENT HEENT Narrative: Normocephalic atraumatic Eyes PERRL and EOMs intact bilaterally General Eye ED: Negative for scleral icterus Neck supple Neck Narrative: No nuchal rigidity or meningeal signs noted Resp normal respiratory effort and clear to auscultation bilaterally Cardio regular rate and regular rhythm Rate: other Other Details: Heart is regular rate and rhythm without murmurs rubs or gallop Radial and carotid pulses are equal and symmetric GI GI Narrative: Patient has pain with firmness and guarding in the suprapubic/lower mid abdominal region The remainder of the abdomen is soft and nondistended Auscultation: normoactive bowel sounds Palpation: soft Back/Spine Back/Spine Narrative: Bilateral CVA tenderness noted Extremity normal to inspection Extremity Narrative: No asymmetric edema no pitting edema negative Homans' sign bilaterally Neuro oriented x3, CN's II-XII intact bilaterally and no sensory deficits noted Sensorium / Orientation: alert Motor Exam: strength 5/5 throughout Psych mental status grossly normal Skin no rashes or lesions noted General Skin Exam: Negative for jaundice or pallor MDM MDM MDM Narrative Medical decision making narrative: Patient presented to the ER with stable vitals but did have guarding on exam concerning for potential abdominal/intestinal infection and/or surgical complication of recurrent bleeding or endometriosis. With the bilateral back pain there is also concern this could be potential kidney stone versus pyelonephritis or even atypical biliary colic. Secondary to his basic labs and a CT scan of the abdomen and pelvis were obtained. Labs showed improved H&H as well as improving white blood cell count. CT scan however showed changes around the gallbladder concerning for developing acute cholecystitis and or potential pelvic inflammatory disease around the uterus. With this finding potential PID around the uterus and her recent surgery [employer] was contacted. They evaluated the patient in the ER and they feel it is the patient safest option to be admitted for IV antibiotics especially with her recent multiple surgeries. Secondary to this she was admitted to their care for further treatment in the hospital. Because of the CT read of potential acute cholecystitis a ultrasound will also be obtained of the right upper quadrant to check for this as a cause of her symptoms. However as she is being admitted to the hospital this can be done on an inpatient basis History & Record Review Discussion w/independent historian: Patient and Significant other Lab Data Attestation: I reviewed the patient's lab results. Labs: Laboratory Results - last 24 hr 04/14/23 04/14/23 04/14/23 02:12 02:25 04:31 WBC 11.6 H RBC 4.78 Hgb 13.0 Hct 42.1 MCV 88.1 MCH 27.2 MCHC 30.9 L RDW Std Deviation 42.9 RDW Coeff of Stuart 13.2 Plt Count 412 MPV 9.4 Immature Gran % (Auto) 0.300 Neut % (Auto) 49.3 Lymph % (Auto) 27.3 Day % (Auto) 5.9 Eos % (Auto) 16.2 H Baso % (Auto) 1.0 Absolute Neuts (auto) 5.7 Absolute Lymphs (auto) 3.17 Nucleated RBC % 0 Sodium 140 Potassium 3.9 Chloride 107 Carbon Dioxide 29.0 Anion Gap 4 L BUN 18 Creatinine 0.68 Estim Creat Clear Calc 114.79 Est GFR (MDRD) Af Amer 136 Est GFR (MDRD) Non-Af 112 BUN/Creatinine Ratio 26.4 H Glucose 117 H Lactic Acid 1.0 Calcium 9.6 Total Bilirubin 0.30 Direct Bilirubin 0.13 AST 35 ALT 26 Alkaline Phosphatase 135 H Total Protein 7.4 Albumin 3.4 Globulin 4.0 Triglycerides 108 Cholesterol 202 H LDL Cholesterol 135 H VLDL Cholesterol 22 HDL Cholesterol 45 Lipase 43 Urine Color Yellow Urine Clarity Clear Urine pH 6.0 Ur Specific [place] 1.010 Urine Protein Negative Urine Glucose (UA) Normal Urine Ketones Negative Urine Occult Blood 10 H Urine Nitrite Negative Urine Bilirubin Negative Urine Urobilinogen Normal Ur Leukocyte Esterase 100 H Urine RBC 0 SEEN Urine WBC 0 SEEN Ur Squamous Epith Cells 0 SEEN Urine Bacteria 0 SEEN Urine Mucus 0 SEEN Radiography Diagnostic Testing: Clinical Impression(s) from Imaging Studies Abdomen/Pelvis CT 04/14/23 01:43 IMPRESSION: 1. Distended gallbladder with gallbladder wall thickening. Recommend follow-up with right upper quadrant ultrasound to evaluate for possible cholecystitis. 2. Hyperenhancing myometrium and endometrium of the uterus with adjacent fat stranding and stranding of the anterior mesenteric fat in the lower abdomen and pelvis. Findings may represent pelvic inflammatory disease. Consider follow-up with pelvic ultrasound. Electronically Signed: Emiliano Mehta DO at 4:11 EST , Management Discussion w/another healthcare provider: Dispatch Clerk Discharge Plan Dx/Rx/DC Orders Clinical Impression: Acute postoperative abdominal pain, Post-operative infection Disposition Disposition: Acute Care Hospital [facility]
--- OUTSIDE RECORDS SUMMARY | 2023-04-14 05:24 | XMS RPT_ITS | CCD ---
Author Name Unknown Address [address] [place] [address] Organization [facility] Care Team Providers Care Molder Foam Rubber Name Role Phone TARA, DR TEMO Jones [...] Guido PA-C Unavailable Cherry Guido PA-C Unavailable Fruit Thinner/Gynecology Prov. Unavailable Un available Emma Simmons MD Unavailable Anatoliy LEAD INGOT MOLDER, Lala Unavailable Day LEAD INGOT MOLDER, Tete Unavailable Unavailable Gogoi (scribe), Hemanta Unavailable Unavaila ble Evangelista LEAD INGOT MOLDER, Tayler Unavailable Unavailable Omega Lowe MD Unavailable King JESSICA-C, Chip Farley Unavailable Gia CARDENAS, Lavinia Wong Unavailable Unavaila megha Han RN, Jazmín Unavailable Prieto CARDENAS, Delmy Barton Unavailable Unavailable Uptain CNM, Acacia Cuevas Unavailable Vess LEAD INGOT MOLDER, Neilee L Unavailable Unavailable Wengerd LEAD INGOT MOLDER, Anjali Unavailable Unavailabl e Zaugg LEAD INGOT MOLDER, Hayley Unavailable Unavailable Unavailable Unavailable Uptain [facility] Primary Care Provider CHERY, HAYLEY Attending Unavailable PRABHAKAR, HAYLEY Referring Unavailable PRABHAKAR, HAYLEY Referring Unavailable ULICES PADILLA Attending Unavailable ANDRIA ROCK Attending Unavailable UPTAIN, MARBURY Primary Care Unavailable WISWELL, KOURTNEY Attending Unavailable UPTAIN, ACACIA Primary Care Unavailable SELF Referring Unavailable WISWELL, KOURTNEY Attending Unavailable PRABHAKAR, HAYLEY Referring Unavailable PRABHAKAR, HAYLEY Attending Unavailable UPTAIN, CRYSTAL Primary Care Unavailable SELF Referring Unavailable WISWELL, KOURTNEY Attending Unavailable UPTAIN, MARBURY Primary Care Unavailable PRABHAKAR, HAYLEY Referring Unavailable PLOTTS, RADHA Attending Unavailable PRABHAKAR, HAYLEY Referring Unavailable PRABHAKAR, HAYLEY Attending Unavailable PLOTTS, RADHA Attending Unavailable PLOTTS, RADHA Attending Unavailable ULICES PADILLA Attending Unavailable PRABHAKAR, HAYLEY Referring Unavailable PRABHAKAR, HAYLEY Attending Unavailable ULICES PADILLA Attending Unavailable Allergies Allergy Classification Reported Allergen(s) Allergy Type Date of Onset Reaction(s) Facility (13 sources) Seasonal allergy; Translations: [SEASONAL ALLERGIES] Allergy to substance 9 Other: See Comments [facility] Work Phone: Medications Current Medications Medication Drug [...] as school and body with will shake. [place] that she has had a panic attack [...] dealing with bullying at school when at [employer]; will go to [place] this year and is liking that it [...] 64.86 kg Kourtney Lorenzana MD Work Phone: [facility] 04-02-2023 10:03-0500 Diastolic blood pressure 60 mm[Hg] Kourtney Lorenzana MD Work Phone: [facility] 04-02-2023 10:03-0500 Systolic blood pressure 102 mm[Hg] Kourtney Lorenzana MD Work Phone: [facility] 03-22-2023 10:40-0500 Body height 165.1 cm Kourtney Lorenzana MD Work Phone: [facility] 03-22-2023 10:40-0500 Body weight 72.12 kg Kourtney Lorenzana MD Work Phone: [facility] 03-22-2023 10:40-0500 Diastolic blood pressure 80 mm[Hg] Kourtney Lorenzana MD Work Phone: [facility] 03-22-2023 10:40-0500 Heart rate 84 /min Kourtney Lorenzana MD Work Phone: [facility] 03-22-2023 10:40-0500 Respiratory rate 16 /min Kourtney Lorenzana MD Work Phone: [facility] 03-22-2023 10:40-0500 SaO2% (BldA) [Mass fraction] 100 % Kourtney Lorenzana MD Work Phone: [facility] 03-22-2023 10:40-0500 Systolic blood pressure 122 mm[Hg] Kourtney Lorenzana MD Work Phone: [facility] 01-10-2023 15:15-0500 Body weight 69.4 kg Ulices Padilla MD Work Phone: [facility] 01-10-2023 15:15-0500 Diastolic blood pressure 58 mm[Hg] Ulices Padilla MD Work Phone: [facility] 01-10-2023 15:15-0500 Systolic blood pressure 102 mm[Hg] Ulices Padilla MD Work Phone: [facility] 12-15-2022 09:00-0400 Body weight 67.31 kg Hayley Prabhakar APRN.CNM Work Phone: [facility] 12-15-2022 09:00-0400 Diastolic blood pressure 60 mm[Hg] Hayley Prabhakar APRN.CNM Work Phone: [facility] 12-15-2022 09:00-0400 Systolic blood pressure 110 mm[Hg] Hayley Prabhakar APRN.CNM Work Phone: [facility] 10-13-2022 08:59-0400 Body weight 65.77 kg Radha Plotts NURSING SUPPORT WORKER.CNM Work Phone: [facility] 10-13-2022 08:59-0400 Diastolic blood pressure 62 mm[Hg] Radha Plotts NURSING SUPPORT WORKER.CNM Work Phone: [facility] 10-13-2022 08:59-0400 Systolic blood pressure 98 mm[Hg] Radha Plotts NURSING SUPPORT WORKER.CNM Work Phone: [facility] 09-15-2022 09:57-0400 Body weight 67.59 kg Radha Plotts NURSING SUPPORT WORKER.CNM Work Phone: [facility] 09-15-2022 09:57-0400 Diastolic blood pressure 66 mm[Hg] Radha Plotts NURSING SUPPORT WORKER.CNM Work Phone: [facility] 09-15-2022 09:57-0400 Systolic blood pressure 108 mm[Hg] Radha Plotts NURSING SUPPORT WORKER.CNM Work Phone: [facility] 07-23-2022 09:21-0400 Body temperature 100.71 [degF] Emiliano Pendlegee NURSING SUPPORT WORKER.SENIOR ADMINISTRATIVE SERVICES OFFICER Work Phone: [facility] 07-23-2022 09:21-0400 Body weight 71.58 kg Emilianopiyush Deng NURSING SUPPORT WORKER.SENIOR ADMINISTRATIVE SERVICES OFFICER Work Phone: [facility] 07-23-2022 09:21-0400 Diastolic blood pressure 80 mm[Hg] Emiliano Pendlebury NURSING SUPPORT WORKER.SENIOR ADMINISTRATIVE SERVICES OFFICER Work Phone: [facility] 07-23-2022 09:21-0400 Heart rate 108 /min Emiliano Deng NURSING SUPPORT WORKER.SENIOR ADMINISTRATIVE SERVICES OFFICER Work Phone: [facility] 07-23-2022 09:21-0400 Respiratory rate 20 /min Emiliano Deng NURSING SUPPORT WORKER.SENIOR ADMINISTRATIVE SERVICES OFFICER Work Phone: [facility] 07-23-2022 09:21-0400 SaO2% (BldA) [Mass fraction] 97 % Emiliano Deng NURSING SUPPORT WORKER.SENIOR ADMINISTRATIVE SERVICES OFFICER Work Phone: [facility] 07-23-2022 09:040 Systolic blood pressure 112 mm[Hg] Emiliano Deng NURSING SUPPORT WORKER.SENIOR ADMINISTRATIVE SERVICES OFFICER Work Phone: [facility] 12-10-2019 13:17040 Body height 165.74 cm Tayler Naidu LPN [facility].; [facility], [employer]. 12-10-2019 13:17040 Body mass index (BMI) [Ratio] 24.77 kg/m2 Tayler Naidu LPN [facility], [facility].; [employer] [facility], [facility]. 12-10-2019 13:040 Body surface area Derived from formula 1.76 m2 Tayler Naidu LPN [facility].; [place] [employer] [facility], [facility]. 12-10-2019 13:040 Body weight 68.04 kg Tayler Naidu LPN [facility].; [employer] [facility], [employer]. 12-10-2019 13:17040 Diastolic blood pressure 81 mm[Hg] Tayler Naidu LPN [facility].; [employer] [facility], [employer]. Encounters Encounter Date Encounter Type Care Provider Facility Start: 04-02-2023 End: 04-02-2023 ambulatory CRYSTAL UPTAIN Facility:[facility] Start: 04-02-2023 End: 04-02-2023 Patient encounter procedure Kourtney Lorenzaan MD Work Phone: OB/Gynecology Procedures Date Procedure Procedure Detail Performing Clinician Start: 03-22-2023 URINE OB DIP B/O Kourtney diaz MD Work Phone: Start: 01-10-2023 URINE OB DIP B/O Juliane Padilla MD Work Phone: Start: 10-13-2022 URINE OB DIP B/O Felipe Moreau NURSING SUPPORT WORKER.CNM Work Phone: Start: 09-15-2022 URINE OB DIP B/O Felipe Moreau APRN.CNAlejandrina Work Phone: Start: 08-21-2022 Antibody screen HAYLEY PRABHAKAR Plan of Treatment Date Care Activity Detail Author Start: 11-22-2033 Urine microalbumin profile [facility] Start: 09-18-2028 Urine microalbumin profile [facility] Start: 08-21-2025 PAP TESTING PAP TESTING [facility] Start: 08-21-2025 Screening for malign ant neoplasm of cervix Pap Testing [facility] Start: 08-22-2023 CHLAMYDIA SCREENING (18-24) CHLAMYDIA SCREENING (18-24) [facility] Start: 08-22-2023 GC (GONORRHEA) SCREE LILIA (18-24) GC (GONORRHEA) SCREENING (18-24) [facility] Start: 02-19-2023 Depression Assessment Depression Ass essment [facility] Start: 12-15-2022 End: 03-16-2023 CBC W Auto Differential panel - Blood CBC + DIFF Lab Routine with history of section, antepartum 24 weeks gestation of Expected: 12/15/2022, Expires: 03/16/2023 [facility] Work Phone: Immunizations Immunization Date Immunization Notes Care Provider Fa [facility] 02-16-2023 respiratory syncytia l virus (RSV) vaccine, bivalent (ABRYSVO) Kourtney Lorenzana MD Work Phone: [facility] 01-10-2023 tetanus toxoid, redu mayito diphtheria toxoid, and acellular pertussis vaccine, adsorbed Ulices Padilla MD Work Phone: [facility] 03-03-2021 influenza, seasonal, injectable, preservative free Ulices Padilla MD Work Phone: [facility] 03-03-2021 influenza virus vacc ine, unspecified formulation Hayley Prabhakar APRN.CNM Work Phone: [facility] 09-18-2018 tetanus toxoid, redu mayito diphtheria toxoid, and acellular pertussis vaccine, adsorbed Emiliano Deng APRN.SENIOR ADMINISTRATIVE SERVICES OFFICER Work Phone: [facility] Work Phone: 09-08-2015 meningococcal polysaccharide (groups A, C, Y and W-135) diphtheria toxoid conjugate vaccine (MCV4P) Ulices Padilla MD Work Phone: [facility] Payers Date Payer Category Payer Unknown [id number] 2021 Unknown [id number] 1998 Unknown [id number] 1998 Unknown [id number] 1998 Unknown [id number] 1998 Unknown [id number] Unknown [id number] Unknown [id number] Social History Date Type Detail Facility Start: 07-23-2022 Tobacco smoking stat [facility] Never smoked tobacco [facility] Start: 07-23-2022 Tobacco use and exposure Smoke less tobacco non-user [facility] Start: 07-23-2022 End: 04-02-2023 Alcohol intake Lifetime non-drinker (finding) [facility] Start: 01-23-2019 History SDOH Alcohol Frequency 1 [facility] Start: 2000 Sex Assigned At Not on file [facility] Start: 08-14-2022 Education 16 [facility] Start: 07-08-2022 [facility] Start: 01-23-2019 End: 08-14-2022 History of Social function [place] Start: 01-23-2019 End: 08-14-2022 Alcohol Use Disorder Identification Test - Consumption [AUDIT-C] [facility] How often to you hav e a drink containing alcohol? Never [facility] Average Number of Drinks Not on file [facility] Tobacco/Smoke Exposure: Tobacco/ Smoke Exposure: ; None. [employer] Female [employer] Work Phone: None [employer] Work Phone: Goals Date Patient Goal Desired Activity /State Personal health goal Clinical Notes 10-07-2018 to 04-02-2023 Kourtney Lorenzana MD - 04/02/2023 10:02 AM Diana Saenz RN - 03/26/2023 4:51 PM ESTPrenatal Quick Notes - Kourtney Lorenzana MD - 03/22/2023 10:52 AM Kourtney Wade MD - 03/22/2023 10:41 AM EST Note Date & Type Note Facility 04-02-2023 Note HNO ID: [id number] Author: KOURTNEY LORENZANA MD Service: ? Author [...] every 2 hours, does not feel rested [place] since delivery: Not resumed Emotional support: Yes [...] visit and as needed Kourtney Lorenzana DO [facility] 04-02-2023 History of Presen t illness [...] every 2 hours, does not feel rested [place] since delivery: Not resumed Emotional support: Yes [...] Kourtney Lorenzana DO documented in this encounter [facility] 03-26-2023 Note HNO ID: [id number] Author: DIANA KIMBROUGH RN Service: ? Author Type: Registered Nurse Type: Progress Notes Filed: 03/26/2023 16:53 Note Text: Patient delivered via by Dr. Lorenzana on 03/26/23 at [facility]. See OB history. Diana Kimbrough RN [facility] 03-26-2023 History of Presen t illness Narrative Patient delivered via by Dr. Lorenzana on 03/26/23 at [facility]. See OB history. Diana Kimbrough RN documented in this encounter [facility] 03-22-2023 Miscellaneous Notes Formattin g of this note might be different from the original. SW- Pre op today. documented in this encounter [facility] 03-22-2023 History and physical note Pre-Op History [...] 4 - Moderate documented in this encounter [facility] 03-22-2023 Vivian Baig Ma - 03/22/2023 10:41 AM EST SEQUENTIAL SCREENINGS The [facility] offers sequential screenings for women who are [...] It will require an appointment with our fire range technician. This is not an ultrasound performed [...] the above symptoms, contact our office at [phone] and ask to speak with a nurse. After hours, you can call doctors registry at [phone] OR call [facility] at [phone] and ask to have the doctor television maintenance worker paged. If you consider this an emergency, dial 9-6-3 or go to your nearest emergency department. NEED HELP? Are you dealing with a violent or abusive relationship? Are you a victim of rape or sexual assult? Call [facility] ([facility] 24 hour Crisis Hotline: 530.392.9827 or 552-713-2207. MANUAL Your Guide to a Healthy manual is now on-line. Visit [email or web address] to download your free copy documented in this encounter [facility] 03-09-2023 Note HNO ID: [id number] Author: CHIP ACEVEDO APRN.SENIOR ADMINISTRATIVE SERVICES OFFICER Service: ? Author Type: Nurse Practitioner Type: [...] in 3-5 days if symptoms worsening -notify bowl turner of positive test. 2. URI, acute - ICD9: 465.9, ICD10: J06.9 - Discussed viral etiology and rationale for treatment. - Symptomatic treatment with prn analgesia - Supportive care with fluids and rest - INFLUENZA AANDB MOLECULAR (POC) Chip Acevedo APRN.MONTRELL [facility] 01-26-2023 Miscellaneous Notes Formattin g of this note might be different from the original. [facility] paperwork completed. Pt notified and original placed at senior front end web developer for pt to pick and shovel worker. Copy scanned into EMR and filed in REHABILITATION WORKER suite. Lavinia Vallejo LPN [facility] paperwork completed and placed on providers desk for signature. Lavinia Vallejo LPN documented in this encounter [facility] 01-10-2023 Note HNO ID: [id number] Author: Vivian Woodard Ma Service: ? Author [...] severely ill: Yes Patient denies history of Guillain-Addison Syndrome (a severe paralytic illness): Yes Tdap Adacel injection was given without incident. See immunizations for details of immunizations administered today. VIS sheet provided: Yes Provider Dr Padilla was present in office at time of injection. Vivian Woodard Ma [facility] 01-10-2023 Miscellaneous Notes Formattin g of [...] Ulices Padilla M.D. documented in this encounter [facility] 01-10-2023 History of Presen t illness Narrative [...] severely ill: Yes Patient denies history of Guillain-Addison Syndrome (a severe paralytic illness): Yes Tdap Adacel injection was given without incident. See immunizations for details of immunizations administered today. VIS sheet provided: Yes Provider Dr Padilla was present in office at time of injection. Vivian Woodard Ma documented in this encounter [facility] 01-10-2023 Instructions Vivian Woodard Ma - 01/10/2023 2:55 PM EST SEQUENTIAL SCREENINGS The [facility] offers sequential screenings for women who are [...] It will require an appointment with our fire range technician. This is not an ultrasound performed [...] the above symptoms, contact our office at [phone] and ask to speak with a nurse. After hours, you can call doctors registry at [phone] OR call [facility] at [phone] and ask to have the doctor television maintenance worker paged. If you consider this an emergency, dial 9-1-3 or go to your nearest emergency department. NEED HELP? Are you dealing with a violent or abusive relationship? Are you a victim of rape or sexual assult? Call [facility] ([place]) 24 hour Crisis Hotline: 661.139.3115 or 195-880-0073. MANUAL Your Guide to a Healthy manual is now on-line. Visit [email or web address] to download your free copy documented in this encounter [facility] 12-15-2022 Miscellaneous Notes Formattin g of this [...] Hayley Prabhakar APRN.CNM documented in this encounter [facility] 12-15-2022 Instructions Nick Reddy Cma - 12/15/2022 8:53 AM EDT SEQUENTIAL SCREENINGS The [facility] offers sequential screenings for women who are [...] It will require an appointment with our fire range technician. This is not an ultrasound performed [...] the above symptoms, contact our office at [phone] and ask to speak with a nurse. After hours, you can call doctors registry at [phone] OR call [facility] at [phone] and ask to have the doctor television maintenance worker paged. If you consider this an emergency, dial or go to your nearest emergency department. NEED HELP? Are you dealing with a violent or abusive relationship? Are you a victim of rape or sexual assult? Call [facility] ([place]) 24 hour Crisis Hotline: 267.838.8485 or 679-441-1125. MANUAL Your Guide to a Healthy manual is now on-line. Visit [email or web address] to download your free copy documented in this encounter [facility] 10-13-2022 Miscellaneous Notes Formattin g of this [...] Radha Moreau APRN.CNM documented in this encounter [facility] 10-13-2022 Instructions Nick Reddy Cma - 10/13/2022 8:53 AM EDT SEQUENTIAL SCREENINGS The [facility] offers sequential screenings for women who are [...] It will require an appointment with our fire range technician. This is not an ultrasound performed [...] the above symptoms, contact our office at [phone] and ask to speak with a nurse. After hours, you can call doctors registry at [phone] OR call [facility] at [phone] and ask to have the doctor television maintenance worker paged. If you consider this an emergency, dial 6-9-9 or go to your nearest emergency department. NEED HELP? Are you dealing with a violent or abusive relationship? Are you a victim of rape or sexual assult? Call [facility] ([place]) 24 hour Crisis Hotline: 778.668.8693 or 841-490-2447. MANUAL Your Guide to a Healthy manual is now on-line. Visit [email or web address] to download your free copy documented in this encounter [facility] 10-12-2022 Note HNO ID: [id number] Author: Hayley Prabhakar APRN.CNM Service: ? Author Type: Tacker Elastic Band Type: Progress Notes Filed: 10/12/2022 9:43 AM Note Text: OB point of care ultrasound was performed. See imaging tab for details. Hayley Prabhakar APRN.CNM [facility] 10-12-2022 History of Presen t illness Narrative OB point of care ultrasound was performed. See imaging tab for details. Hayley Prabhakar APRN.CNM documented in this encounter [facility] 09-15-2022 Miscellaneous Notes Formattin g of this [...] Radha Moreau APRN.CNM documented in this encounter [facility] 09-15-2022 Instructions Nick Reddy Cma - 09/15/2022 9:51 AM EDT SEQUENTIAL SCREENINGS The [facility] offers sequential screenings for women who are [...] It will require an appointment with our fire range technician. This is not an ultrasound performed [...] the above symptoms, contact our office at [phone] and ask to speak with a nurse. After hours, you can call doctors registry at [phone] OR call [facility] at [phone] and ask to have the doctor television maintenance worker paged. If you consider this an emergency, dial 9--2 or go to your nearest emergency department. NEED HELP? Are you dealing with a violent or abusive relationship? Are you a victim of rape or sexual assult? Call [facility] ([place]) 24 hour Crisis Hotline: 731.636.5057 or 933-503-4124. MANUAL Your Guide to a Healthy manual is now on-line. Visit [email or web address] to download your free copy documented in this encounter [facility] 08-21-2022 Note HNO ID: [id number] Author: Hayley Prabhakar APRN.REGINE Service: ? Author Type: Tacker Elastic Band Type: Progress Notes Filed: 08/21/2022 11:14 AM [...] use: No Multivitamin with Folic acid: Yes Church or heritage: No Would refuse blood transfusion if medically necessary: No Are you currently employed? 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 [facility] 08-14-2022 Note HNO ID: [id number] Author: Laila Jimenez RN Service: ? Author [...] None, Apgar5: None, Living: None, Comments: None [facility] 08-14-2022 Miscellaneous Notes Formattin g of [...] testing.Laila Jimenez RN documented in this encounter [facility] 08-14-2022 History of Presen t illness Narrative [...] None, Comments: None documented in this encounter [facility] 08-09-2022 Miscellaneous Notes Formattin g of this note might be different from the original. Patient scheduled Left message for patient to return phone call. Patient has an appointment with Loi Prabhakar for NOB appointment. Please schedule PNOB appointment. documented in this encounter [facility] 07-23-2022 Note HNO ID: [id number] Author: Emiliano Deng APRN.MONTRELL Service: ? Author [...] started abruptly. Patient states they have used [id number] medication with some success. Patient states they [...] of care. This note was generated using [employer] software. It may contain errors in wording, (more content not included)... [facility] 07-23-2022 History of Presen t illness Narrative Subjective HPI Nontoxic-appearing female presents urgent care chief complaint flulike symptoms. Duration of symptoms 2 days Associated symptoms with today's chief complaint are on and off headache, muscle aches, fatigue, nonproductive cough, diarrhea, ear pain, and fever. Patient stated symptoms started abruptly. Patient states they have used [id number] medication with some success. Patient states they [...] of care. This note was generated using [employer] software. It may contain errors in wording, punctuation, or spelling. Emiliano Deng APRN.CNP documented in this encounter [facility] documented as of this encounter (statuses as of 07/23/2022) [facility] History of Past illness Narrative* Problem Noted Date Resolved Date Elevated liver enzymes 10/07/2018 9 Overview: 10/07/18-AST 50. No signs of pre-e.Hayley Prabhakar APRN.CNM Patient requested diagnostic testing 05/09/2018 11/29/2018 Overview: 05/09/2018Patient desires nuchal ultrasound. Declines CF carrier screening testing. TKRN documented as of this encounter (statuses as of 08/09/2022) [facility] History of Past illness Narrative* Problem Noted Date Resolved Date Elevated liver enzymes 10/07/2018 9 Overview: 10/07/18-AST 50. No signs of pre-e.Hayley Prabhakar APRN.CNM Patient requested diagnostic testing 05/09/2018 11/29/2018 Overview: 05/09/2018Patient desires nuchal ultrasound. Declines CF carrier screening testing. TKRN documented as of this encounter (statuses as of 08/14/2022) [facility] History of Past illness Narrative* Problem Noted Date Diagnosed Date Resolved Date Elevated liver enzymes 10/07/201801/23 Overview: 10/07/18-AST 50. No signs of pre-e.Hayley Prabhakar APRN.CNM Patient requested diagnostic testing 05/09/2018 11/29/2018 Overview: 05/09/2018Patient desires nuchal ultrasound. Declines CF carrier screening testing. TKRN documented as of this encounter (statuses as of 09/15/2022) [facility] History of Past illness Narrative* Problem Noted Date Diagnosed Date Resolved Date Elevated liver enzymes 10/07/201801/23 Overview: 10/07/18-AST 50. No signs of pre-e.Hayley Prabhakar APRN.CNM Patient requested diagnostic testing 05/09/2018 11/29/2018 Overview: 05/09/2018Patient desires nuchal ultrasound. Declines CF carrier screening testing. TKRN documented as of this encounter (statuses as of 10/12/2022) [facility] History of Past illness Narrative* Problem Noted Date Diagnosed Date Resolved Date Elevated liver enzymes 10/07/201801/23 Overview: 10/07/18-AST 50. No signs of pre-e.Hayley Prabhakar APRN.CNM Patient requested diagnostic testing 05/09/2018 11/29/2018 Overview: 05/09/2018Patient desires nuchal ultrasound. Declines CF carrier screening testing. TKRN documented as of this encounter (statuses as of 10/13/2022) [facility] History of Past illness Narrative* Problem Noted Date Diagnosed Date Resolved Date Elevated liver enzymes 10/07/201801/23 Overview: 10/07/18-AST 50. No signs of pre-e.Hayley Prabhakar APRN.CNM Patient requested diagnostic testing 05/09/2018 11/29/2018 Overview: 05/09/2018Patient desires nuchal ultrasound. Declines CF carrier screening testing. TKRN documented as of this encounter (statuses as of 12/15/2022) [facility] History of Past illness Narrative* Problem Noted Date Diagnosed Date Resolved Date Elevated liver enzymes 10/07/201801/23 Overview: 10/07/18-AST 50. No signs of pre-e.Hayley Prabhakar APRN.CNM Patient requested diagnostic testing 05/09/2018 11/29/2018 Overview: 05/09/2018Patient desires nuchal ultrasound. Declines CF carrier screening testing. TKRN documented as of this encounter (statuses as of 01/10/2023) [facility] History of Past illness Narrative* Problem Noted Date Diagnosed Date Resolved Date Elevated liver enzymes 10/07/201801/23 Overview: 10/07/18-AST 50. No signs of pre-e.Hayley Prabhakar APRN.CNM Patient requested diagnostic testing 05/09/2018 11/29/2018 Overview: 05/09/2018Patient desires nuchal ultrasound. Declines CF carrier screening testing. TKRN documented as of this encounter (statuses as of 01/26/2023) [facility] History of Past illness Narrative* Problem Noted Date Diagnosed Date Resolved Date Elevated liver enzymes 10/07/201801/23 Overview: 10/07/18-AST 50. No signs of pre-e.Hayley Prabhakar APRN.CNM Patient requested diagnostic testing 05/09/2018 11/29/2018 Overview: 05/09/2018Patient desires nuchal ultrasound. Declines CF carrier screening testing. TKRN documented as of this encounter (statuses as of 03/26/2023) [facility] History of Past illness Narrative* Problem Noted Date Diagnosed Date Resolved Date Elevated liver enzymes 10/07/201801/23 Overview: 10/07/18-AST 50. No signs of pre-e.Hayley Prabhakar APRN.CNM Patient requested diagnostic testing 05/09/2018 11/29/2018 Overview: 05/09/2018Patient desires nuchal ultrasound. Declines CF carrier screening testing. TKRN documented as of this encounter (statuses as of 03/27/2023) [facility] History of Past illness Narrative* Problem Noted Date Diagnosed Date Resolved Date Elevated liver enzymes 10/07/201801/23 Overview: 10/07/18-AST 50. No signs of pre-e.Hayley Prabhakar APRN.CNM Patient requested diagnostic testing 05/09/2018 11/29/2018 Overview: 05/09/2018Patient desires nuchal ultrasound. Declines CF carrier screening testing. TKRN documented as of this encounter (statuses as of 04/02/2023) [facility] Diagnosis Sore throat- Primary Acute pharyngitis Viral illness Unspecified viral infection, in conditions classified elsewhere and of unspecified site documented [facility] this encounter [facility] Diagnosis with history of section, antepartum- Primary History of anxiety/depression Personal history of other mental disorder documented [facility] encounter [facility] Diagnosis 11 weeks gestation of - Primary state, incidental [facility] encounter [facility] Diagnosis with uncertain dates in first trimester- Primary [facility] encounter [facility] Diagnosis 15 weeks gestation of - Primary state, incidental [facility] Diagnosis with history of section, antepartum- Primary 24 weeks gestation of state, incidental [facility] Diagnosis 28 weeks gestation of - Primary state, incidental with history of section, antepartum Need for vaccination Need for prophylactic vaccination and inoculation against unspecified single disease [facility] Diagnosis Encounter for supervision of other normal in third trimester- Primary with history of section, antepartum 38 weeks gestation of state, incidental [facility]* Diagnosis Status post section routine follow-up- Primary Routine follow-up state Routine follow-up documented in this encounter [facility] Summary Purpose Family History No Family History [...] Date Diagnosed Date [facility] 08/21/2022 Education - [place] 08/21/2022 Problem Noted Date Diagnosed Date [facility] 08/21/2022 Education - [place] 08/21/2022 Problem Noted Date Diagnosed Date [facility] - [facility] 08/21/2022 Education - [place] 08/21/2022 Problem Noted Date Diagnosed Date [facility] - [facility] 08/21/2022 Education - [place] 08/21/2022 Problem Noted Date Diagnosed Date [facility] - [facility] 08/21/2022 Education - [place] 08/21/2022 Problem Noted Date Diagnosed Date [facility] - [facility] 08/21/2022 Education - [place] 08/21/2022 Problem Noted Date Diagnosed Date [facility] - [facility] 08/21/2022 Education - [place] 08/21/2022 Problem Noted Date Diagnosed Date [facility] - [facility] 08/21/2022 Education - [place] 08/21/2022 Additional Source Comments INFORMATION SOURCE (unrecogn ized section and content) DATE CREATED AUTHOR AUTHOR'S ORGANIZ ATION 12/18/2019 [facility] DATE CREATED AUTHOR AUTHOR'S ORGANIZ ATION [facility] DATE CREATED AUTHOR AUTHOR'S ORGANIZ ATION 04/03/2023 [facility] Source Comments (unrecognize d section and content) In the event this informatio n is protected by the Federal Confidentiality of Alcohol and Drug Abuse Patient Records regulations: The Federal rules restrict any use of the information to criminally investigate or prosecute any alcohol or drug abuse patient.[facility] the event this information is protected by the Federal Confidentiality of Alcohol and Drug Abuse Patient Records regulations: The Federal rules restrict any use of the information to criminally investigate or prosecute any alcohol or drug abuse patient.[facility] the event this information is protected by the Federal Confidentiality of Alcohol and Drug Abuse Patient Records regulations: The Federal rules restrict any use of the information to criminally investigate or prosecute any alcohol or drug abuse patient.[facility] the event this information is protected by the Federal Confidentiality of Alcohol and Drug Abuse Patient Records regulations: The Federal rules restrict any use of the information to criminally investigate or prosecute any alcohol or drug abuse patient.[facility] the event this information is protected by the Federal Confidentiality of Alcohol and Drug Abuse Patient Records regulations: The Federal rules restrict any use of the information to criminally investigate or prosecute any alcohol or drug abuse patient.[facility] System[facility] the event this information is protected by the Federal Confidentiality of Alcohol and Drug Abuse Patient Records regulations: The Federal rules restrict any use of the information to criminally investigate or prosecute any alcohol or drug abuse patient.[facility] System[facility] the event this information is protected by the Federal Confidentiality of Alcohol and Drug Abuse Patient Records regulations: The Federal rules restrict any use of the information to criminally investigate or prosecute any alcohol or drug abuse patient.[facility] System[facility] the event this information is protected by the Federal Confidentiality of Alcohol and Drug Abuse Patient Records regulations: The Federal rules restrict any use of the information to criminally investigate or prosecute any alcohol or drug abuse patient.[facility] System[facility] the event this information is protected by the Federal Confidentiality of Alcohol and Drug Abuse Patient Records regulations: The Federal rules restrict any use of the information to criminally investigate or prosecute any alcohol or drug abuse patient.[facility] System[facility] the event this information is protected by the Federal Confidentiality of Alcohol and Drug Abuse Patient Records regulations: The Federal rules restrict any use of the information to criminally investigate or prosecute any alcohol or drug abuse patient.[facility] System[facility] the event this information is protected by the Federal Confidentiality of Alcohol and Drug Abuse Patient Records regulations: The Federal rules restrict any use of the information to criminally investigate or prosecute any alcohol or drug abuse patient.[facility] System[facility] the event this information is protected by the Federal Confidentiality of Alcohol and Drug Abuse Patient Records regulations: The Federal rules restrict any use of the information to criminally investigate or prosecute any alcohol or drug abuse patient.[facility] Reason for Visit (unrecogniz ed section and [...] Care Teams (unrecognized sec tion and content) [employer] Relationship Specialty Start Date End Date Acacia Oscar CNM [address] [place] [address] 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 [facility] [employer] [facility]. provides no warranty or guarantee of the accuracy or completeness of information in this document.
--- OUTSIDE RECORDS SUMMARY | 2023-04-14 05:50 | XMS RPT_ITS | CCD ---
Author Name Unknown Address [address] [place] [address] Organization [facility] Care Team Providers Care Sales Support Specialist Name Role Phone TARA, DR TEMO Jones [...] Guido PA-C Unavailable Cherry Guido PA-C Unavailable Medical Lead/Gynecology Prov. Unavailable Un available Emma Simmons MD Unavailable Anatoliy CAREER EDUCATION TEACHER, Lala Unavailable Day CAREER EDUCATION TEACHER, Tete Unavailable Unavailable Gogoi (scribe), Hemanta Unavailable Unavaila ble Evangelista CAREER EDUCATION TEACHER, Tayler Unavailable Unavailable Omega Lowe MD Unavailable King JESSICA-C, Chip Farley Unavailable Gia CARDENAS, Lavinia Wong Unavailable Unavaila megha Han RN, Jazmín Unavailable Prieto CARDENAS, Delmy Barton Unavailable Unavailable Uptain CNM, Acacia Cuevas Unavailable Vess CAREER EDUCATION TEACHER, Neilee L Unavailable Unavailable Wengerd CAREER EDUCATION TEACHER, Anjali Unavailable Unavailabl e Zaugg CAREER EDUCATION TEACHER, Hayley Unavailable Unavailable Unavailable Unavailable Uptain [facility] Primary Care Provider CHERY, HAYLEY Attending Unavailable PRABHAKAR, HAYLEY Referring Unavailable PRABHAKAR, HAYLEY Referring Unavailable ULICES PADILLA Attending Unavailable ANDRIA ROCK Attending Unavailable UPTAIN, [place] Primary Care Unavailable WISWELL, KOURTNEY Attending Unavailable UPTAIN, ACACIA Primary Care Unavailable SELF Referring Unavailable WISWELL, KOURTNEY Attending Unavailable PRABHAKAR, HAYLEY Referring Unavailable PRABHAKAR, HAYLEY Attending Unavailable UPTAIN, CRYSTAL Primary Care Unavailable SELF Referring Unavailable WISWELL, KOURTNEY Attending Unavailable UPTAIN, [place] Primary Care Unavailable PRABHAKAR, HAYLEY Referring Unavailable [...] Allergy to substance 9 Other: See Comments [facility] Work Phone: Medications Current Medications Medication [...] as school and body with will shake. [place] that she has had a panic attack [...] dealing with bullying at school when at [employer]; will go to [place] this year and is liking that it [...] 64.86 kg Kourtney Lorenzana MD Work Phone: [facility] 04-02-2023 10:03-0500 Diastolic blood pressure 60 mm[Hg] Kourtney Lorenzana MD Work Phone: [facility] 04-02-2023 10:03-0500 Systolic blood pressure 102 mm[Hg] Kourtney Lorenzana MD Work Phone: [facility] 03-22-2023 10:40-0500 Body height 165.1 cm Kourtney Lorenzana MD Work Phone: [facility] 03-22-2023 10:40-0500 Body weight 72.12 kg Kourtney Lorenzana MD Work Phone: [facility] 03-22-2023 10:40-0500 Diastolic blood pressure 80 mm[Hg] Kourtney Lorenzana MD Work Phone: [facility] 03-22-2023 10:40-0500 Heart rate 84 /min Kourtney Lorenzana MD Work Phone: [facility] 03-22-2023 10:40-0500 Respiratory rate 16 /min Kourtney Lorenzana MD Work Phone: [facility] 03-22-2023 10:40-0500 SaO2% (BldA) [Mass fraction] 100 % Kourtney Lorenzana MD Work Phone: [facility] 03-22-2023 10:40-0500 Systolic blood pressure 122 mm[Hg] Kourtney Lorenzana MD Work Phone: [facility] 01-10-2023 15:15-0500 Body weight 69.4 kg Ulices Padilla MD Work Phone: [facility] 01-10-2023 15:15-0500 Diastolic blood pressure 58 mm[Hg] Ulices Padilla MD Work Phone: [facility] 01-10-2023 15:15-0500 Systolic blood pressure 102 mm[Hg] Ulices Padilla MD Work Phone: [facility] 12-15-2022 09:00-0400 Body weight 67.31 kg Hayley Prabhakar APRN.CNM Work Phone: [facility] 12-15-2022 09:00-0400 Diastolic blood pressure 60 mm[Hg] Hayley Prabhakar APRN.CNM Work Phone: [facility] 12-15-2022 09:00-0400 Systolic blood pressure 110 mm[Hg] Hayley Prabhakar APRN.CNM Work Phone: [facility] 10-13-2022 08:59-0400 Body weight 65.77 kg Radha Plotts AGENT BROKER.CNM Work Phone: [facility] 10-13-2022 08:59-0400 Diastolic blood pressure 62 mm[Hg] Radha Plotts AGENT BROKER.CNM Work Phone: [facility] 10-13-2022 08:59-0400 Systolic blood pressure 98 mm[Hg] Radha Plotts AGENT BROKER.CNM Work Phone: [facility] 09-15-2022 09:57-0400 Body weight 67.59 kg Radha Plotts AGENT BROKER.CNM Work Phone: [facility] 09-15-2022 09:57-0400 Diastolic blood pressure 66 mm[Hg] Radha Plotts AGENT BROKER.CNM Work Phone: [facility] 09-15-2022 09:57-0400 Systolic blood pressure 108 mm[Hg] Radha Plotts AGENT BROKER.CNM Work Phone: [facility] 07-23-2022 09:21-0400 Body temperature 100.71 [degF] Emiliano Pendlegee AGENT BROKER.INVAS TECH Work Phone: [facility] 07-23-2022 09:21-0400 Body weight 71.58 kg Emilianopiyush Deng AGENT BROKER.INVAS TECH Work Phone: [facility] 07-23-2022 09:21-0400 Diastolic blood pressure 80 mm[Hg] Emiliano Pendlebury AGENT BROKER.INVAS TECH Work Phone: [facility] 07-23-2022 09:21-0400 Heart rate 108 /min Emiliano Deng AGENT BROKER.INVAS TECH Work Phone: [facility] 07-23-2022 09:21-0400 Respiratory rate 20 /min Emiliano Deng AGENT BROKER.INVAS TECH Work Phone: [facility] 07-23-2022 09:21-0400 SaO2% (BldA) [Mass fraction] 97 % Emiliano Deng AGENT BROKER.INVAS TECH Work Phone: [facility] 07-23-2022 09:040 Systolic blood pressure 112 mm[Hg] Emiliano Deng AGENT BROKER.INVAS TECH Work Phone: [facility] 12-10-2019 13:17040 Body height 165.74 cm Tayler Naidu LPN [facility] [employer] [facility], [place]. 12-10-2019 13:17040 Body mass index (BMI) [Ratio] 24.77 kg/m2 Tayler Naidu LPN [facility].; [employer] [facility]. 12-10-2019 13:040 Body surface area Derived from formula 1.76 m2 Tayler Naidu LPN [facility].; [place] [employer] [facility]. 12-10-2019 13:040 Body weight 68.04 kg Tayler Naidu LPN [facility].; [employer] [facility], [place]. 12-10-2019 13:17040 Diastolic blood pressure 81 mm[Hg] Tayler Naidu LPN [facility].; [employer] [facility], [place]. Encounters Encounter Date Encounter Type Care Provider Facility Start: 04-02-2023 End: 04-02-2023 ambulatory CRYSTAL UPTAIN Facility:[facility] Start: 04-02-2023 End: 04-02-2023 Patient encounter procedure Kourtney Lorenzana MD Work Phone: OB/Gynecology Procedures Date Procedure Procedure Detail Performing Clinician Start: 03-22-2023 URINE OB DIP B/O Kourtney diaz MD Work Phone: Start: 01-10-2023 URINE OB DIP B/O Juliane Padilla MD Work Phone: Start: 10-13-2022 URINE OB DIP B/O Felipe Moreau AGENT BROKER.CNM Work Phone: Start: 09-15-2022 URINE OB DIP B/O Felipe Moreau APRN.CNAlejandrina Work Phone: Start: 08-21-2022 Antibody screen HAYLEY PRABHAKAR Plan of Treatment Date Care Activity Detail Author Start: 11-22-2033 Urine microalbumin profile [facility] Start: 09-18-2028 Urine microalbumin profile [facility] Start: 08-21-2025 PAP TESTING PAP TESTING [facility] Start: 08-21-2025 Screening for malign ant neoplasm of cervix Pap Testing [facility] Start: 08-22-2023 CHLAMYDIA SCREENING (18-24) CHLAMYDIA SCREENING (18-24) [facility] Start: 08-22-2023 GC (GONORRHEA) SCREE LILIA (18-24) GC (GONORRHEA) SCREENING (18-24) [facility] Start: 02-19-2023 Depression Assessment Depression Ass essment [facility] Start: 12-15-2022 End: 03-16-2023 CBC W Auto Differential panel - Blood CBC + DIFF Lab Routine with history of section, antepartum 24 weeks gestation of Expected: 12/15/2022, Expires: 03/16/2023 [facility] Work Phone: Immunizations Immunization Date Immunization Notes Care Provider Fa [facility] 02-16-2023 respiratory syncytia l virus (RSV) vaccine, bivalent (ABRYSVO) Kourtney Lorenzana MD Work Phone: [facility] 01-10-2023 tetanus toxoid, redu mayito diphtheria toxoid, and acellular pertussis vaccine, adsorbed Ulices Padilla MD Work Phone: [facility] 03-03-2021 influenza, seasonal, injectable, preservative free Ulices Padilla MD Work Phone: [facility] 03-03-2021 influenza virus vacc ine, unspecified formulation Hayley Prabhakar APRN.CNM Work Phone: [facility] 09-18-2018 tetanus toxoid, redu mayito diphtheria toxoid, and acellular pertussis vaccine, adsorbed Emiliano Deng APRN.INVAS TECH Work Phone: [facility] Work Phone: 09-08-2015 meningococcal polysaccharide (groups A, C, Y and W-135) diphtheria toxoid conjugate vaccine (MCV4P) Ulices Padilla MD Work Phone: [facility] Payers Date Payer Category Payer Unknown [id number] 2021 Unknown [id number] 1998 Unknown [id number] 1998 Unknown [id number] 1998 Unknown [id number] 1998 Unknown [id number] Unknown [id number] Unknown [id number] Social History Date Type Detail Facility Start: 07-23-2022 Tobacco smoking stat [facility] Never smoked tobacco [facility] Start: 07-23-2022 Tobacco use and exposure Smoke less tobacco non-user [facility] Start: 07-23-2022 End: 04-02-2023 Alcohol intake Lifetime non-drinker (finding) [facility] Start: 01-23-2019 History SDOH Alcohol Frequency 1 [facility] Start: 2000 Sex Assigned At Not on file [facility] Start: 08-14-2022 Education 16 [facility] Start: 07-08-2022 [facility] Start: 01-23-2019 End: 08-14-2022 History of Social function [facility] Start: 01-23-2019 End: 08-14-2022 Alcohol Use Disorder Identification Test - Consumption [AUDIT-C] [facility] How often to you hav e a drink containing alcohol? Never [facility] Average Number of Drinks Not on file [facility] Tobacco/Smoke Exposure: Tobacco/ Smoke Exposure: ; None. [employer] [facility]. Female [facility] Work Phone: None [facility] Work Phone: Goals Date Patient Goal Desired Activity /State Personal health goal Clinical Notes 10-07-2018 to 04-02-2023 Kourtney Lorenzana MD - 04/02/2023 10:02 AM Diana Saenz RN - 03/26/2023 4:51 PM ESTPrenatal Quick Notes - Kourtney Lorenzana MD - 03/22/2023 10:52 AM Kourtney Wade MD - 03/22/2023 10:41 AM EST Note Date & Type Note Facility 04-02-2023 Note HNO ID: [id number] Author: KOURTNEY LORENZANA MD Service: ? Author [...] every 2 hours, does not feel rested [place] since delivery: Not resumed Emotional support: Yes [...] visit and as needed Kourtney Lorenzana DO [facility] 04-02-2023 History of Presen t illness [...] every 2 hours, does not feel rested [place] since delivery: Not resumed Emotional support: Yes [...] Kourtney Lorenzana DO documented in this encounter [facility] 03-26-2023 Note HNO ID: [id number] Author: DIANA KIMBROUGH RN Service: ? Author Type: Registered Nurse Type: Progress Notes Filed: 03/26/2023 16:53 Note Text: Patient delivered via by Dr. Lorenzana on 03/26/23 at [facility]. See OB history. Diana Kimbrough RN [facility] 03-26-2023 History of Presen t illness Narrative Patient delivered via by Dr. Lorenzana on 03/26/23 at [facility]. See OB history. Diana Kimbrough RN documented in this encounter [facility] 03-22-2023 Miscellaneous Notes Formattin g of this note might be different from the original. SW- Pre op today. documented in this encounter [facility] 03-22-2023 History and physical note Pre-Op [...] 4 - Moderate documented in this encounter [facility] 03-22-2023 Vivian Baig Ma - 03/22/2023 10:41 AM EST SEQUENTIAL SCREENINGS The [facility] offers sequential screenings for women who [...] It will require an appointment with our music sound light technician. This is not an ultrasound performed [...] the above symptoms, contact our office at [phone] and ask to speak with a nurse. After hours, you can call doctors registry at [phone] OR call [facility] at [phone] and ask to have the doctor industrial education instructor paged. If you consider this an emergency, dial 8-6-7 or go to your nearest emergency department. NEED HELP? Are you dealing with a violent or abusive relationship? Are you a victim of rape or sexual assult? Call [facility] ([facility] 24 hour Crisis Hotline: 464.103.2017 or 691-178-7024. MANUAL Your Guide to a Healthy manual is now on-line. Visit [email or web address] [email or web address] to download your free copy documented in this encounter [facility] 03-09-2023 Note HNO ID: [id number] Author: CHIP ACEVEDO APRN.INVAS TECH Service: ? Author Type: Nurse Practitioner Type: [...] in 3-5 days if symptoms worsening -notify metal refiner of positive test. 2. URI, acute - ICD9: 465.9, ICD10: J06.9 - Discussed viral etiology and rationale for treatment. - Symptomatic treatment with prn analgesia - Supportive care with fluids and rest - INFLUENZA AANDB MOLECULAR (POC) Chip Acevedo APRN.MONTRELL [facility] 01-26-2023 Miscellaneous Notes Formattin g of this note might be different from the original. [facility] paperwork completed. Pt notified and original placed at front office director for pt to picking supervisor. Copy scanned into EMR and filed in PRODUCT DEVELOPMENT COORDINATOR suite. Lavinia Vallejo LPN [facility] paperwork completed and placed on providers desk for signature. Lavinia Vallejo LPN documented in this encounter [facility] 01-10-2023 Note HNO ID: [id number] Author: Vivian Woodard Ma Service: ? Author [...] severely ill: Yes Patient denies history of Guillain-Hagerman Syndrome (a severe paralytic illness): Yes Tdap Adacel injection was given without incident. See immunizations for details of immunizations administered today. VIS sheet provided: Yes Provider Dr Padilla was present in office at time of injection. Vivian Woodard Ma [facility] 01-10-2023 Miscellaneous Notes Formattin g of [...] Ulices Padilla M.D. documented in this encounter [facility] 01-10-2023 History of Presen t illness [...] severely ill: Yes Patient denies history of Guillain-Hagerman Syndrome (a severe paralytic illness): Yes Tdap Adacel injection was given without incident. See immunizations for details of immunizations administered today. VIS sheet provided: Yes Provider Dr Padilla was present in office at time of injection. Vivian Woodard Ma documented in this encounter [facility] 01-10-2023 Instructions Vivian Woodard Ma - 01/10/2023 2:55 PM EST SEQUENTIAL SCREENINGS The [facility] offers sequential screenings for women who [...] It will require an appointment with our music sound light technician. This is not an ultrasound performed [...] the above symptoms, contact our office at [phone] and ask to speak with a nurse. After hours, you can call doctors registry at [phone] OR call [facility] at [phone] and ask to have the doctor industrial education instructor paged. If you consider this an emergency, dial 9-1-6 or go to your nearest emergency department. NEED HELP? Are you dealing with a violent or abusive relationship? Are you a victim of rape or sexual assult? Call [facility] ([place]) 24 hour Crisis Hotline: 980.896.2165 or 233-991-5497. MANUAL Your Guide to a Healthy manual is now on-line. Visit [email or web address] to download your free copy documented in this encounter [facility] 12-15-2022 Miscellaneous Notes Formattin g of [...] Hayley Prabhakar APRN.CNM documented in this encounter [facility] 12-15-2022 Instructions Nick Reddy Cma - 12/15/2022 8:53 AM EDT SEQUENTIAL SCREENINGS The [facility] offers sequential screenings for women who [...] It will require an appointment with our music sound light technician. This is not an ultrasound performed [...] the above symptoms, contact our office at [phone] and ask to speak with a nurse. After hours, you can call doctors registry at [phone] OR call [facility] at [phone] and ask to have the doctor industrial education instructor paged. If you consider this an emergency, dial or go to your nearest emergency department. NEED HELP? Are you dealing with a violent or abusive relationship? Are you a victim of rape or sexual assult? Call [facility] ([place]) 24 hour Crisis Hotline: 632.696.1330 or 027-170-4019. MANUAL Your Guide to a Healthy manual is now on-line. Visit [email or web address] to download your free copy documented in this encounter [facility] 10-13-2022 Miscellaneous Notes Formattin g of [...] Radha Moreau APRN.CNM documented in this encounter [facility] 10-13-2022 Instructions Nick Reddy Cma - 10/13/2022 8:53 AM EDT SEQUENTIAL SCREENINGS The [facility] offers sequential screenings for women who [...] It will require an appointment with our music sound light technician. This is not an ultrasound performed [...] the above symptoms, contact our office at [phone] and ask to speak with a nurse. After hours, you can call doctors registry at [phone] OR call [facility] at [phone] and ask to have the doctor industrial education instructor paged. If you consider this an emergency, dial 3-9-0 or go to your nearest emergency department. NEED HELP? Are you dealing with a violent or abusive relationship? Are you a victim of rape or sexual assult? Call [facility] ([place] 24 hour Crisis Hotline: 646.584.5865 or 189-576-2349. MANUAL Your Guide to a Healthy manual is now on-line. Visit [email or web address] [email or web address] to download your free copy documented in this encounter [facility] 10-12-2022 Note HNO ID: [id number] Author: Hayley Prabhakar APRN.CNM Service: ? Author Type: Heel Stiffener Type: Progress Notes Filed: 10/12/2022 9:43 AM Note Text: OB point of care ultrasound was performed. See imaging tab for details. Hayley Prabhakar APRN.CNM [facility] 10-12-2022 History of Presen t illness Narrative OB point of care ultrasound was performed. See imaging tab for details. Hayley Prabhakar APRN.CNM documented in this encounter [facility] 09-15-2022 Miscellaneous Notes Formattin g of [...] Radha Moreau APRN.CNM documented in this encounter [facility] 09-15-2022 Instructions Nick Reddy Cma - 09/15/2022 9:51 AM EDT SEQUENTIAL SCREENINGS The [facility] offers sequential screenings for women who [...] It will require an appointment with our music sound light technician. This is not an ultrasound performed [...] the above symptoms, contact our office at [phone] and ask to speak with a nurse. After hours, you can call doctors registry at [phone] OR call [facility] at [phone] and ask to have the doctor industrial education instructor paged. If you consider this an emergency, dial 9--8 or go to your nearest emergency department. NEED HELP? Are you dealing with a violent or abusive relationship? Are you a victim of rape or sexual assult? Call [facility] ([place] 24 hour Crisis Hotline: 813.798.8042 or 266-147-1975. MANUAL Your Guide to a Healthy manual is now on-line. Visit [email or web address] [email or web address] to download your free copy documented in this encounter [facility] 08-21-2022 Note HNO ID: [id number] Author: Hayley Prabhakar APRN.REGINE Service: ? Author Type: Heel Stiffener Type: Progress Notes Filed: 08/21/2022 11:14 AM [...] use: No Multivitamin with Folic acid: Yes Religion or heritage: No Would refuse blood transfusion if medically necessary: No Are you currently employed? 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 [facility] 08-14-2022 Note HNO ID: [id number] Author: Laila Jimenez RN Service: ? Author [...] None, Apgar5: None, Living: None, Comments: None [facility] 08-14-2022 Miscellaneous Notes Formattin g of [...] testing.Laila Jimenez RN documented in this encounter [facility] 08-14-2022 History of Presen t illness [...] None, Comments: None documented in this encounter [facility] 08-09-2022 Miscellaneous Notes Formattin g of this note might be different from the original. Patient scheduled Left message for patient to return phone call. Patient has an appointment with Loi Prabhakar for NOB appointment. Please schedule PNOB appointment. documented in this encounter [facility] 07-23-2022 Note HNO ID: [id number] Author: Emiliano Deng APRN.MONTRELL Service: ? Author [...] started abruptly. Patient states they have used [id number] medication with some success. Patient states they [...] of care. This note was generated using [employer] software. It may contain errors in wording, (more content not included)... [facility] 07-23-2022 History of Presen t illness Narrative Subjective HPI Nontoxic-appearing female presents urgent care chief complaint flulike symptoms. Duration of symptoms 2 days Associated symptoms with today's chief complaint are on and off headache, muscle aches, fatigue, nonproductive cough, diarrhea, ear pain, and fever. Patient stated symptoms started abruptly. Patient states they have used evpq-[id number] medication with some success. Patient states they [...] of care. This note was generated using [employer] software. It may contain errors in wording, punctuation, or spelling. Emiliano Deng APRN.CNP documented in this encounter [facility] documented as of this encounter (statuses as of 07/23/2022) [facility] History of Past illness Narrative* Problem Noted Date Resolved Date Elevated liver enzymes 10/07/2018 9 Overview: 10/07/18-AST 50. No signs of pre-e.Hayley Prabhakar APRN.CNM Patient requested diagnostic testing 05/09/2018 11/29/2018 Overview: 05/09/2018Patient desires nuchal ultrasound. Declines CF carrier screening testing. TKRN documented as of this encounter (statuses as of 08/09/2022) [facility] History of Past illness Narrative* Problem Noted Date Resolved Date Elevated liver enzymes 10/07/2018 9 Overview: 10/07/18-AST 50. No signs of pre-e.Hayley Prabhakar APRN.CNM Patient requested diagnostic testing 05/09/2018 11/29/2018 Overview: 05/09/2018Patient desires nuchal ultrasound. Declines CF carrier screening testing. TKRN documented as of this encounter (statuses as of 08/14/2022) [facility]2019 History of Past illness Narrative* Problem Noted Date Diagnosed Date Resolved Date Elevated liver enzymes 10/07/201801/23 Overview: 10/07/18-AST 50. No signs of pre-e.Hayley Prabhakar APRN.CNM Patient requested diagnostic testing 05/09/2018 11/29/2018 Overview: 05/09/2018Patient desires nuchal ultrasound. Declines CF carrier screening testing. TKRN documented as of this encounter (statuses as of 09/15/2022) [facility] History of Past illness Narrative* Problem Noted Date Diagnosed Date Resolved Date Elevated liver enzymes 10/07/201801/23 Overview: 10/07/18-AST 50. No signs of pre-e.Hayley Prabhakar APRN.CNM Patient requested diagnostic testing 05/09/2018 11/29/2018 Overview: 05/09/2018Patient desires nuchal ultrasound. Declines CF carrier screening testing. TKRN documented as of this encounter (statuses as of 10/12/2022) [facility] History of Past illness Narrative* Problem Noted Date Diagnosed Date Resolved Date Elevated liver enzymes 10/07/201801/23 Overview: 10/07/18-AST 50. No signs of pre-e.Hayley Prabhakar APRN.CNM Patient requested diagnostic testing 05/09/2018 11/29/2018 Overview: 05/09/2018Patient desires nuchal ultrasound. Declines CF carrier screening testing. TKRN documented as of this encounter (statuses as of 10/13/2022) [facility] History of Past illness Narrative* Problem Noted Date Diagnosed Date Resolved Date Elevated liver enzymes 10/07/201801/23 Overview: 10/07/18-AST 50. No signs of pre-e.Hayley Prabhakar APRN.CNM Patient requested diagnostic testing 05/09/2018 11/29/2018 Overview: 05/09/2018Patient desires nuchal ultrasound. Declines CF carrier screening testing. TKRN documented as of this encounter (statuses as of 12/15/2022) [facility] History of Past illness Narrative* Problem Noted Date Diagnosed Date Resolved Date Elevated liver enzymes 10/07/201801/23 Overview: 10/07/18-AST 50. No signs of pre-e.Hayley Prabhakar APRN.CNM Patient requested diagnostic testing 05/09/2018 11/29/2018 Overview: 05/09/2018Patient desires nuchal ultrasound. Declines CF carrier screening testing. TKRN documented as of this encounter (statuses as of 01/10/2023) [facility] History of Past illness Narrative* Problem Noted Date Diagnosed Date Resolved Date Elevated liver enzymes 10/07/201801/23 Overview: 10/07/18-AST 50. No signs of pre-e.Hayley Prabhakar APRN.CNM Patient requested diagnostic testing 05/09/2018 11/29/2018 Overview: 05/09/2018Patient desires nuchal ultrasound. Declines CF carrier screening testing. TKRN documented as of this encounter (statuses as of 01/26/2023) [facility] History of Past illness Narrative* Problem Noted Date Diagnosed Date Resolved Date Elevated liver enzymes 10/07/201801/23 Overview: 10/07/18-AST 50. No signs of pre-e.Hayley Prabhakar APRN.CNM Patient requested diagnostic testing 05/09/2018 11/29/2018 Overview: 05/09/2018Patient desires nuchal ultrasound. Declines CF carrier screening testing. TKRN documented as of this encounter (statuses as of 03/26/2023) [facility] History of Past illness Narrative* Problem Noted Date Diagnosed Date Resolved Date Elevated liver enzymes 10/07/201801/23 Overview: 10/07/18-AST 50. No signs of pre-e.Hayley Prabhakar APRN.CNM Patient requested diagnostic testing 05/09/2018 11/29/2018 Overview: 05/09/2018Patient desires nuchal ultrasound. Declines CF carrier screening testing. TKRN documented as of this encounter (statuses as of 03/27/2023) [facility] History of Past illness Narrative* Problem Noted Date Diagnosed Date Resolved Date Elevated liver enzymes 10/07/201801/23 Overview: 10/07/18-AST 50. No signs of pre-e.Hayley Prabhakar APRN.CNM Patient requested diagnostic testing 05/09/2018 11/29/2018 Overview: 05/09/2018Patient desires nuchal ultrasound. Declines CF carrier screening testing. TKRN documented as of this encounter (statuses as of 04/02/2023) [facility] Diagnosis Sore throat- Primary Acute pharyngitis Viral illness Unspecified viral infection, in conditions classified elsewhere and of unspecified site documented in this encounter [facility] Diagnosis with history of section, antepartum- Primary History of anxiety/depression Personal history of other mental disorder documented in this encounter [facility] Diagnosis 11 weeks gestation of - Primary state, incidental documented in this encounter [facility] Diagnosis with uncertain dates in first trimester- Primary documented in this encounter [facility] Diagnosis 15 weeks gestation of - Primary state, incidental documented [facility] this encounter [facility] Diagnosis with history of section, antepartum- Primary 24 weeks gestation of state, incidental [facility] Diagnosis 28 weeks gestation of - Primary state, incidental with history of section, antepartum Need for vaccination Need for prophylactic vaccination and inoculation against unspecified single disease [facility] Diagnosis Encounter for supervision of other normal in third trimester- Primary with history of section, antepartum 38 weeks gestation of state, incidental documented in this encounter [facility] Diagnosis Status post section routine follow-up- Primary Routine follow-up state Routine follow-up documented in this encounter [facility] Summary Purpose Family History No Family [...] Date Diagnosed Date [facility] - [facility] 08/21/2022 Education - [place] 08/21/2022 Problem Noted Date Diagnosed Date [facility] - [facility] 08/21/2022 Education - [place] 08/21/2022 Problem Noted Date Diagnosed Date [facility] - [facility] 08/21/2022 Education - [place] 08/21/2022 Problem Noted Date Diagnosed Date [facility] - [facility] 08/21/2022 Education - [place] 08/21/2022 Problem Noted Date Diagnosed Date [facility] - [facility] 08/21/2022 Education - [place] 08/21/2022 Problem Noted Date Diagnosed Date [facility] - [facility] 08/21/2022 Education - [place] 08/21/2022 Problem Noted Date Diagnosed Date [facility] - [facility] 08/21/2022 Education - [place] 08/21/2022 Problem Noted Date Diagnosed Date [facility] - [facility] 08/21/2022 Education - [place] 08/21/2022 Additional Source Comments INFORMATION SOURCE (unrecogn ized section and content) DATE CREATED AUTHOR AUTHOR'S ORGANIZ ATION 12/18/2019 [facility] DATE CREATED AUTHOR AUTHOR'S ORGANIZ ATION [facility] DATE CREATED AUTHOR AUTHOR'S ORGANIZ ATION 04/03/2023 [facility] Source Comments (unrecognize d section and content) In the event this informatio n is protected by the Federal Confidentiality of Alcohol and Drug Abuse Patient Records regulations: The Federal rules restrict any use of the information to criminally investigate or prosecute any alcohol or drug abuse patient.[facility] the event this information is protected by the Federal Confidentiality of Alcohol and Drug Abuse Patient Records regulations: The Federal rules restrict any use of the information to criminally investigate or prosecute any alcohol or drug abuse patient.[facility] the event this information is protected by the Federal Confidentiality of Alcohol and Drug Abuse Patient Records regulations: The Federal rules restrict any use of the information to criminally investigate or prosecute any alcohol or drug abuse patient.[facility] the event this information is protected by the Federal Confidentiality of Alcohol and Drug Abuse Patient Records regulations: The Federal rules restrict any use of the information to criminally investigate or prosecute any alcohol or drug abuse patient.[facility] the event this information is protected by the Federal Confidentiality of Alcohol and Drug Abuse Patient Records regulations: The Federal rules restrict any use of the information to criminally investigate or prosecute any alcohol or drug abuse patient.[facility] the event this information is protected by the Federal Confidentiality of Alcohol and Drug Abuse Patient Records regulations: The Federal rules restrict any use of the information to criminally investigate or prosecute any alcohol or drug abuse patient.[facility] the event this information is protected by the Federal Confidentiality of Alcohol and Drug Abuse Patient Records regulations: The Federal rules restrict any use of the information to criminally investigate or prosecute any alcohol or drug abuse patient.[facility] the event this information is protected by the Federal Confidentiality of Alcohol and Drug Abuse Patient Records regulations: The Federal rules restrict any use of the information to criminally investigate or prosecute any alcohol or drug abuse patient.[facility] the event this information is protected by the Federal Confidentiality of Alcohol and Drug Abuse Patient Records regulations: The Federal rules restrict any use of the information to criminally investigate or prosecute any alcohol or drug abuse patient.[facility] the event this information is protected by the Federal Confidentiality of Alcohol and Drug Abuse Patient Records regulations: The Federal rules restrict any use of the information to criminally investigate or prosecute any alcohol or drug abuse patient.[facility] the event this information is protected by the Federal Confidentiality of Alcohol and Drug Abuse Patient Records regulations: The Federal rules restrict any use of the information to criminally investigate or prosecute any alcohol or drug abuse patient.[facility] the event this information is protected by the Federal Confidentiality of Alcohol and Drug Abuse Patient Records regulations: The Federal rules restrict any use of the information to criminally investigate or prosecute any alcohol or drug abuse patient.[facility] Reason for Visit (unrecogniz ed section [...] Care Teams (unrecognized sec tion and content) Sales Support Specialist Relationship Specialty Start Date End Date Acacia Oscar CNM [address] [place] [address] PCP - General Wet Process Miller Head Assistant 03/09/23 Sales Support Specialist Relationship Specialty Start Date End Date Acacia Oscar CNM [address] [place] [address] PCP - General Wet Process Miller Head Assistant 03/09/23 FOR RECORDS PERTAINING TO PATIENTS WHO [...] BE BASED ON THE PRIMARY CLINICAL RECORDS. [facility] [facility]. provides no warranty or guarantee of the accuracy or completeness of information in this document.
--- NOTE | 2023-04-14 07:33 | PCM.HP.OB ---
HPI - General General Date of Admission: 04/14/23 Date of Service: 04/14/23 Chief Complaint: abdominal pain HPI Narrative JACINTO BACON, is a 22 F who presents with abdominal pain. She is about 3 weeks out from a repeat section. On postoperative day 1 she was noted to have acute blood loss anemia, and was taken to the operating room for an exploratory laparotomy with evacuation of hemoperitoneum. She had a rectus sheath hematoma at that time. She has been doing well postoperatively. She states last night she had an acute onset of severe pain. The pain was diffuse all over her abdomen. She was unable to get comfortable with the pain. She denies having fevers or chills. She denies nausea or vomiting. She has been eating well and tolerating a diet. No vaginal discharge or bleeding. Her bleeding has stopped. She has been having normal bowel movements at home. She has no issues with urination. [facility] Medical History Anxiety Depression Diarrhea Difficulty balancing when standing Encounter for screening for COVID-19 Fatigue Severe headache SOB (shortness of breath) Home Medications [id number] 400 mcg-om3 35 mg-dha 25 mg-epa 5 mg-fish oil chewable tablet 1 tab PO DAILY 03/26/23 [History Last Taken 03/23/23 08:00 1 TAB] Allergy/AdvReac Type Severity Reaction Status Date / Time No Known Allergies Allergy Verified 04/14/23 01:28 Surgical History Delivery by section Hx of section Social History Smoking Status: Never smoker alcohol intake: never History Elective abortions Hx Para 1 Spontaneous abortions Hx # Term Pregnancies Ectopic pregnancies Hx # Pregnancies Multiple births # of living children Vital Signs Vital Signs Vital Signs: 04/14/23 01:28 04/14/23 01:32 04/14/23 05:23 Temperature 97.7 F L Temperature Source Oral Pulse Rate 95 76 Respiratory Rate 21 H 16 Blood Pressure 112/97 H 122/93 H 124/83 H Blood Pressure Mean 102 102 96 Pulse Ox 100 98 Oxygen Delivery Method Room Air 04/14/23 06:11 04/14/23 06:04/14/23 06:12 Temperature 97.9 F 97.1 F L Temperature Source Temporal Pulse Rate 73 60 63 Respiratory Rate 18 16 16 Blood Pressure 116/68 116/68 111/69 Blood Pressure Mean 84 84 83 Pulse Ox 97 98 95 Oxygen Delivery Method Room Air Room Air Weight Weight: 145 lb 11.609 oz Body Mass Index (BMI) 24.2 Physical Exam Const alert and no apparent distress General Appearance: comfortable HEENT normocephalic Resp normal respiratory effort GI soft to palpation and non-distended GI Narrative: Non acute, tenderness in lower pelvis noted, incision c/d/i Labs Labs Labs: Blood Type O POSITIVE Antibody Screen NEGATIVE Hct 42.1 % (37-47) Hgb 13.0 g/dL (12.0-15.0) Syphilis Total Ab Non-reactive Rhogam given: No Assessment & Plan (1) Acute postoperative abdominal pain: PLAN: Patient is 3 weeks out from a repeat section. She presented to the ER with acute severe abdominal pain. Given slightly elevated white blood cell count and CAT scan findings, discussed with patient concern for infection. Called pharmacy to review recommendations for antibiotics. Will start patient on IV clindamycin, gentamicin, and ampicillin. Discussed with patient should see improvement in pain within 24 hours of antibiotic.
[2023-04-14] MEDS: Clindamycin 900 MG/50 ML BAG 75 MG IV (07:55)
[2023-04-14] MEDS: Ampicillin 1,000 MG in 0.9% Normal Saline (50mL MB+) 50 ML 150 MG IV (07:55)
[2023-04-14] MEDS: Acetaminophen 500 MG Tablet 1000 MG PO (08:17)
[2023-04-14] MEDS: Gentamicin IV 280 MG in Dextrose 5%-Water (50mL Bag) 50 ML 115 MG IVPB (08:17)
--- NOTE | 2023-04-14 08:54 | PCM.RX.CS ---
Consult Antibiotic Management Pharmacy has been consulted to manage selected antibiotic: Gentamicin Type of Intervention Type of Consult: New start Labs Labs: Sodium 140 mmol/L (136-145) 04/14/23 02:12 Potassium 3.9 mmol/L (3.5-5.1) 04/14/23 02:12 Chloride 107 mmol/L (98-107) 04/14/23 02:12 Carbon Dioxide 29.0 mmol/L (21.0-32.0) 04/14/23 02:12 Anion Gap 4 (5-15) L 04/14/23 02:12 BUN 18 mg/dL (7-18) 04/14/23 02:12 Creatinine 0.68 mg/dL (0.55-1.02) 04/14/23 02:12 Est GFR (MDRD) Af Amer 136 mL/min (>60) 04/14/23 02:12 Est GFR (MDRD) Non-Af 112 mL/min (>60) 04/14/23 02:12 BUN/Creatinine Ratio 26.4 RATIO (10-20) H 04/14/23 02:12 Glucose 117 mg/dL (74-106) H 04/14/23 02:12 Pharmacy Plan for Drug Dosing Pharmacy Plan for Drug Dosing: NEW START IV GENTAMICIN Consulting Physician: Harriett Indication: post-op infection Dosing Strategy: Extended interval dosing SrCr: 0.68 mg/dL CrCl: 114 mL/min Comments: Will dose using ideal BW Gentamicin Dose: Will dose as 280mg Q24H and get a random level 10 hours after first dose Pending Level: 04/14/23 @ 1800 - random Pharmacy Service will continue to monitor and adjust dosing as required.
--- NOTE | 2023-04-14 10:32 | PN_ITS ---
Progress Note At bedside to discuss RUQ US results with pt. She is now having pain under her ribs and into her back. Assessment & Plan Assessment/Plan (1) Cholecystitis: PLAN: Pain is now under ribs and into her upper back. Discussed with RUQ US results and her symptoms, I think the findings on the CT scan of the pelvis are likely normal post operative changes and her acute severe pain is more likely related to gall bladder disease. She now does note that she had gall bladder pain after her first , and labs were being monitored at that time with discussion of a possible cholecystectomy, but the pain resolved. Discussed patient with general surgery administrative receptionist who will evaluate the patient.
--- NOTE | 2023-04-14 11:35 | CON.PCM.SX_ITS ---
Assessment & Plan Assessment/Plan (1) Cholecystitis: PLAN: Patient is a 22-year-old female who presents with acute onset abdominal pain and associated nausea beginning earlier this morning. Workup to date is suggestive of early cholecystitis with findings of mild leukocytosis, pericholecystic fluid, cholelithiasis, and exam findings of positive Galicia sign. Based on these findings and her persistent tenderness I have recommended proceeding for laparoscopic cholecystectomy. The procedure was described in detail as well as the indications for proceeding. Patient has several questions related to her postoperative recovery and the impact on . Otherwise, she expresses agreement and is presently n.p.o. in the event of needing an intervention. Will look to post with the OR at first availability. (2) Common bile duct dilatation: PLAN: Patient, in addition to the above, demonstrates mild elevation of her alkaline phosphatase and dilation of her common bile duct to 7 mm. Taken together, this is suggestive for possible choledocholithiasis. I have shared with her that I would recommend proceeding for cholecystectomy with intraoperative cholangiography so that the latter is able to directly evaluate for the presence of any persistent obstruction to the biliary tree. I also shared with her that a positive study would lead her to require ERCP with stone removal. She expresses some frustration over the fact that she is already required to anesthesia as an operations in the past 3 weeks, but is resigned to see this issue through as well. Patient has already been started on antibiotics per primary team. Will update primary team as to details of surgical plans. HPI Consult Data Date of Consult: 04/14/23 HPI Narrative Reason for Consultation: Concern for cholecystitis HPI Narrative: JACINTO BACON, is a 22yo, recently female, who presents to [facility] with complaints of severe abdominal pain that began at approximately midnight last night and was associated with some nausea. She shares that the intensity is markedly decreased but she has some persistent back pain that seems to be radiating to her ribs. She denies any observation of fever with this presentation. She also notes that she had a previous experience of this pain?but to a lesser intensity?during the with her son approximately 4 years ago. She shares that she was evaluated for the symptoms and found to have some elevations of her labs that were suggestive of gallbladder . She reports that these abnormalities spontaneously resolved and she had no further evaluation of her gallbladder. Patient's ER workup was notable for a mild leukocytosis at 11.6 as well as a mild elevation of her alkaline phosphatase at 135. CT imaging of the abdomen pelvis showed some distention of the gallbladder as well as gallbladder wall thickening. Reflex ultrasound was recommended and following patient's admission by obstetrics and gynecology this ultrasound study was performed. This study showed actually normal gallbladder wall thickness at 1.6 mm but pericholecystic fluid was noted alongside cholelithiasis. Additionally, radiology identified dilation of the common bile duct to 7 mm. Patient's medical history has been recently complicated by a delivery 3 weeks ago with her daughter that had to be followed by reoperation and evacuation of a rectus sheath hematoma. She reports that she is largely recovered from these operations in terms of any discomfort or healing. [facility] Medical History Anxiety Depression Diarrhea Difficulty balancing when standing Encounter for screening for COVID-19 Fatigue Severe headache SOB (shortness of breath) Home Medications [id number] 400 mcg-om3 35 mg-dha 25 mg-epa 5 mg-fish oil chewable tablet 1 tab PO DAILY 03/26/23 [History Last Taken 03/23/23 08:00 1 TAB] Allergy/AdvReac Type Severity Reaction Status Date / Time No Known Allergies Allergy Verified 04/14/23 01:28 Surgical History Delivery by section Hx of section Social History Smoking Status: Never smoker alcohol intake: never Physical Exam Const alert, oriented x3 and no apparent distress Resp normal respiratory effort GI GI Narrative: Nondistended, soft, tenderness to palpation in the right upper quadrant with mildly positive Galicia sign. Well-healing Pfannenstiel incision with only mild tenderness to palpation. Lab / Micro Data 04/14/23 02:12 04/14/23 02:12 Labs: Laboratory Results - last 24 hr 04/14/23 02:12: WBC 11.6 H, RBC 4.78, Hgb 13.0, Hct 42.1, MCV 88.1, MCH 27.2, MCHC 30.9 L, RDW Std Deviation 42.9, RDW Coeff of Stuart 13.2, Plt Count 412, MPV 9.4, Immature Gran % (Auto) 0.300, Neut % (Auto) 49.3, Lymph % (Auto) 27.3, Newton % (Auto) 5.9, Eos % (Auto) 16.2 H, Baso % (Auto) 1.0, Absolute Neuts (auto) 5.7, Absolute Lymphs (auto) 3.17, Nucleated RBC % 0, Sodium 140, Potassium 3.9, Chloride 107, Carbon Dioxide 29.0, Anion Gap 4 L, BUN 18, Creatinine 0.68, Estim Creat Clear Calc 114.79, Est GFR (MDRD) Af Amer 136, Est GFR (MDRD) Non-Af 112, BUN/Creatinine Ratio 26.4 H, Glucose 117 H, Lactic Acid 1.0, Calcium 9.6 04/14/23 02:25: Total Bilirubin 0.30, Direct Bilirubin 0.13, AST 35, ALT 26, Alkaline Phosphatase 135 H, Total Protein 7.4, Albumin 3.4, Globulin 4.0, Triglycerides 108, Cholesterol 202 H, LDL Cholesterol 135 H, VLDL Cholesterol 22, HDL Cholesterol 45, Lipase 43 04/14/23 04:31: Urine Color Yellow, Urine Clarity Clear, Urine pH 6.0, Ur Specific Shasta 1.010, Urine Protein Negative, Urine Glucose (UA) Normal, Urine Ketones Negative, Urine Occult Blood 10 H, Urine Nitrite Negative, Urine Bilirubin Negative, Urine Urobilinogen Normal, Ur Leukocyte Esterase 100 H, Urine RBC 0 SEEN, Urine WBC 0 SEEN, Ur Squamous Epith Cells 0 SEEN, Urine Bacteria 0 SEEN, Urine Mucus 0 SEEN Imaging Radiology Impression Abdomen/Pelvis CT 04/14/23 01:43 IMPRESSION: 1. Distended gallbladder with gallbladder wall thickening. Recommend follow-up with right upper quadrant ultrasound to evaluate for possible cholecystitis. 2. Hyperenhancing myometrium and endometrium of the uterus with adjacent fat stranding and stranding of the anterior mesenteric fat in the lower abdomen and pelvis. Findings may represent pelvic inflammatory disease. Consider follow-up with pelvic ultrasound. Electronically Signed: Emiliano Mehta DO at 4:11 EST , Gallbladder Ultrasound 04/14/23 05:09 IMPRESSION: Distended gallbladder without gallbladder wall thickening but there is evidence of pericholecystic fluid, gallstones and common bile duct dilatation. The sonographic findings are equivocal for cholecystitis, but when compared with the findings of the CT scan, cholecystitis is likely. Please correlate with lab and physical findings and surgical consultation is recommended Right kidney shows sonographic evidence to suspect medullary sponge kidney with mild right hydronephrosis of uncertain etiology Electronically Signed: Pierre Street MD at 9:46 EST ,
--- NOTE | 2023-04-14 13:20 | GALL_PTH ---
PATHOLOGY RESULTS PATIENT: JACINTO BACON LOC: PCU U#:[id number] AGE/SX: ROOM: [facility] RE04/14/[address]: Dr. Mahin Smith MD : 2000 BED: 1 DIS: 04/15/2023 SPEC #: [id number] RECD: 04/16/23 06:35 STATUS: JULIO IVEY #: [id number] YUDY: 04/14/23 13:[address]: Mahin Smith DEPT: SURGICAL PATHOLOGY RECD BY: Brandi Jackson ENTERED: 04/16/23 10:26 SP TYPE: NÉSTOR MONTEMAYOR DR: Rosina Oscar CNM Tissues: Gallbladder, NOS Procedures: Surgery Specimen Level III HEADER OPERATION: Laparoscopic cholecystectomy with IOC PRE-OP DIAGNOSIS: Cholecystitis, common bile duct dilatation TISSUE SUBMITTED: Gallbladder MICROSCOPIC DIAGNOSIS Gallbladder, cholecystectomy: Chronic eosinophilic cholecystitis and cholelithiasis. AM:myles 04/17/2023 MICROSCOPIC DESCRIPTION Slides are reviewed. GROSS DESCRIPTION Received is one container labeled with the patient's name and designated gallbladder. The specimen consists of a gallbladder measuring 9.5 x 4.5 x 4.0 cm. The external surface is smooth and glistening. Focally, it is granular, hemorrhagic and contains cautery artifact. The lumen of the gallbladder contains a large amount of greenish mucoid bile and multiple mulberry-shaped yellow calculi each averaging approximately 0.3 cm. The mucosa is bile-stained and without any mass lesions. The gallbladder wall averages 0.1 cm in thickness and is free of mass lesions. Slot Machine Floor Person sections of the gallbladder and the cystic duct at margin of resection are submitted in one cassette. / AM:myles 04/16/2023 TC:3 [facility]: [id number]
[2023-04-14] MEDS: oxyCODONE 5 MG Tablet PO (13:51)
--- NOTE | 2023-04-14 14:30 | RAD_ITS ---
PROCEDURE: INTRAOPERATIVE CHOLANGIOGRAM DURING CHOLECYSTECTOMY. DATE OF EXAMINATION: 04/14/2023 INDICATION: Female, 22 years old. Abdominal pain Dose area product: 6.5 Gycm2 TECHNIQUE: Fluoroscopy was provided for intraoperative cholangiogram. Several digital spot images were obtained. Initial images demonstrate contrast injection through the gallbladder. Contrast is seen to opacify the common bile duct, as well as the intrahepatic biliary radicals. No intraluminal filling defects are seen. Incomplete evaluation of the lower common duct moderately irregular borders. RAD/Cholangiogram/ O R,Initial IMPRESSION: Irregular narrowing of the lower common duct without definitive duodenal luminal opacification (Limited intraoperative images). A lower common duct obstruction/process cannot be excluded. Recommend follow-up with ERCP or MRCP, if indicated when correlating with operative findings. Electronically Signed: Raul Cruz MD (Brooks) at 18:23 EST ,
[2023-04-14] MEDS: HYDROmorphone 0.5 MG/0.5 ML SYRINGE IV ×2 (15:05→19:54)
[2023-04-14] MEDS: Piperacil/Tazobactam 3.375 GM in 0.9% Normal Saline (50mL MB+) 50 ML IV (15:10)
--- NOTE | 2023-04-14 15:36 | CASEMGMT ---
RN?CM?ASSESSMENT Index admission: Admitted 03/26 for . ABLA post-op day 1-went for exp lap w/evacuation of nirmala-peritoneum. Discharged home 03/29. Current admission: Presented to ED 04/14 w/acute severe abdominal pain. Admitted w/dx of post- infection and found to have cholecystitis. RN?CM?to room to meet with patient for initial transition planning/care coordination?assessment.?RN?CM?introduced self and role at [facility].? Pt voices understanding and consents to?assessment?at this time.? Pt resting in bed in no distress at this time.? Pt is A/O at this time and answers all questions appropriately.?? Care providers, pharmacy, and demographics verified/updated at this time. PCP: Rosina Oscar NP Specialists: Dr Lorenzana--CARPET LAYER Preferred Pharmacy: [facility] Insurance: Medical [place] Prescription Benefit:?yes LNOK: Living Arrangements: Lives w/, son and dtr. Independent. Transportation:?Pt states drives self and states no transportation concerns at this time.? DME: ?breast pump. HHC/SNF: No hx Pt wishes to return home and states has no concerns with going home at time of discharge.? PLAN:??Home Lucille BSN?RN?CM
--- NOTE | 2023-04-14 17:35 | OP.PCM_ITS ---
Report of Operation Date of Procedure: 04/14/23 Pre-Operative Diagnosis: 1. Acute cholecystitis 2. Dilated common bile duct Post-Operative Diagnosis: Same without evidence of persistent choledocholithiasis Surgery/Procedure Performed:: Laparoscopic cholecystectomy with intraoperative cholangiogram Surgeon: Mahin Smith Type of Anesthesia: General/Supplemental Anesthesiologist: Gage Adair Specimen's removed: Gallbladder Estimated Blood Loss (mL): 10 Description of Procedure: After proper identification in the preoperative holding area the patient was brought to the operating room where she was positioned supine on the operating room table. Preoperatively SCDs were connected and antibiotics that were being administered were continued. General anesthesia was then induced. Patient's abdomen was prepped and draped in usual sterile fashion. A formal timeout was conducted to confirm both patient and the procedure. Procedure was begun with a supraumbilical incision which was extended deeply down to the level of the fascia. The fascia was elevated and incised, as well as the peritoneum. A finger sweep was performed to ensure there were no underlying adhesions and a 12 mm balloon trocar was inserted. Pneumoperitoneum was established at 15 mmHg. Three additional trocars (all 5 mm) were placed in the epigastrium and in the right upper quadrant. Inspection of the peritoneum revealed no inadvertent injury to the viscera below. The gallbladder was visualized with distention and a mild degree of inflammation. commutator undercutter was present for this initial portion of the case and requested the patient be made Trendelenburg to facilitate inspection of the pelvis. There we observed that the uterus was morphologically normal and surrounded all sides by a simple serous fluid. With BRINE TANK SEPARATOR OPERATOR expressing that they were satisfied with this inspection attention was turned to the right upper quadrant after patient was repositioned in reverse Trendelenburg. The gallbladder fundus was then grasped and elevated cephalad. Then, using careful dissection the peritoneum was opened and the structures of the hepatocystic triangle were delineated. As I tried to delineate the course of the cystic duct simply pulling on the overlying peritoneal tissue proved to be exceptionally friable tissue over the proximal cystic duct and resulted in an inadvertent rent in the duct and spillage of bile. Grossly this sidehole appeared to be superior to Rouviere's sulcus, however, given its location and the intervening soft tissue I was compelled to skeletonize the cystic duct to its confluence with the common bile duct. Fortunately there were no additional duct branches and this was accomplished meticulously without event. Once the critical view of safety was obtained, the cystic duct was singly clipped and using an Busby Nekoma clamp, a cholangiocatheter was fed into the proximal segment of the cystic duct and clamped into place. Under fluoroscopy a cholangiogram was then obtained showing a very short remaining length of cystic duct flowing into a common bile duct with unobstructed antegrade flow of contrast into the duodenum just before there was extravasation at the contrast insertion site. There was also retrograde flow through the common hepatic duct into the right and left hepatic ducts. It was apparent that there was somewhat delayed filling of the duodenum and I briefly considered repeating patient's cholangiogram, but given the absence of any obvious filling defects and very short distance of cystic duct to the common bile duct I did not want to compromise my ability to close the cystic duct and elected to proceed with the rest of the case The cholangiocatheter was withdrawn and the proximal cystic duct was carefully sealed with clips and the cystic duct was completely transected. The same process was used for the cystic artery. The gallbladder was then removed from the gallbladder fossa with the use of electrocautery. Selective electrocautery was used to obtain hemostasis in the gallbladder fossa. The gallbladder was placed in an Endo Catch bag and removed from the peritoneum. Morison's pouch was irrigated and the effluent was suctioned free of the peritoneum. Hemostasis was again confirmed. Pneumoperitoneum was evacuated and the fascia of the supraumbilical 12 mm port site was closed with #1Vicryl in a [id number] fashion. A total of 30 mL of anesthetic was injected at the port sites for postoperative pain control. The skin of each port site was then closed in subcuticular fashion using 4-0 Monocryl. Steri-Strips and bandages were applied as dressings. Patient tolerated the procedure well without any apparent complications. On emergence from their anesthetic the patient was taken to PACU for ongoing recovery. Grafts/Implants Used: None Complications None Admit VTE Documentation VTE Present on Admission: Yes VTE Mechan Device Prophylaxis: SCD's Procedures Digestive 40xxx-49xxx: 01009 Laparo cholecystectomy/graph
[2023-04-14] MEDS: Bupivacaine Mpf 0.5% 30 ML VIAL (17:39)
[2023-04-14] MEDS: 0.9% Saline Lock 10 ML Syringe IV (19:55)
[2023-04-15 03:41] VITALS: BP 117/74; PULSE 66; RESP 16; TEMP 36.9; O2SAT 95
[2023-04-15 06:20] LABS: Absolute Lymphocyte Count 1.96 X10^3/uL (0.83-4.51); Basophil# 0.05 X10^3/uL; Basophil% 0.4 % (0-1); Eosinophil# 0.07 X10^3/uL; Eosinophils% 0.5 % (0-5); Hematocrit 37.7 % (37-47); Hemoglobin 12.2 g/dL (12.0-15.0); Lymphocyte # 1.96 X10^3/ul (0.83-4.51); Lymphocyte % 14.1 % (19-41); Mean Corp Hgb Conc 32.4 g/dL (32-36); Mean Corpuscular Hgb 27.9 pg (27.0-32.0); Mean Corpuscular Volume 86.3 fL (81-99); Mean Platelet Vol. 9.7 fl (6.2-12.0); Monocyte# 0.74 X10^3/uL; Monocyte% 5.3 % (0-10); NRBC Flagged by Analyzer 0 % (0-5); Neutrophil # 10.98 X10^3/uL (2.7-7.7); Neutrophil % 79.3 % (47-70); Platelet Count 455 K/mm3 (150-450); RBC Distribution Width CV 13.2 % (11.6-14.6); RBC Distribution Width SD 41.3 fl (35.1-43.9); Red Blood Count 4.37 M/mm3 (4.2-5.4); White Blood Count 13.9 K/mm3 (4.4-11.0)
[2023-04-15 07:02] LABS: ALB/GLOB Ratio 0.9 RATIO (0.9-2.4); AST(SGOT) 144 U/L (15-37); Alanine Aminotransfer ALT/SGPT 132 U/L (13-56); Albumin, Serum 3.1 g/dL (3.2-5.0); Alkaline Phosphatase 221 U/L (45-117); Anion Gap 7 (5-15); BUN 8 mg/dL (7-18); BUN/Creat Ratio 13.3 RATIO (10-20); Chloride 108 mmol/L (98-107); EST Glomerular Filtration Rate 130 mL/min (>60); Est Glom Filt Rate - Afr Amer 157 mL/min (>60); Globulin 3.4 g/dL (2.2-4.2); Glucose 95 mg/dL (74-106); Protein, Total 6.5 g/dL (6.4-8.2); Sodium Level 139 mmol/L (136-145)
[2023-04-15] MEDS: Ondansetron 4 MG/2 ML Vial IV (09:11)
[2023-04-15] MEDS: HYDROmorphone 0.5 MG/0.5 ML SYRINGE IV (09:11)
[2023-04-15] MEDS: 0.9% Saline Lock 10 ML Syringe IV (09:11)
[2023-04-15 09:32] VITALS: BP 135/83; PULSE 68; RESP 18; TEMP 36.4; O2SAT 96
--- NOTE | 2023-04-15 09:40 | DCINST_ITS ---
Discharge Instructions Diet Discharge Diet: No restrictions (Consider starting with a lower fat diet) Activity Discharge Activity: May Not Drive (No driving while using narcotic pain medication) and May Shower (Postoperative day 1) May shower in (days): 1 Ice area for (Minutes): 20 Lifting Restrictions: No lifting greater than 15 pounds for 2 weeks after surgery Dressing / Incision Call your doctor if your incision/area has: Continuous Slow Oozing, Increased Pain/ Swelling, Increased Redness, Foul Smelling Discharge and Swelling at the incision site Call your doctor if you observe: Fever of 101 or Higher Remove Dressing in: 2 days (Please leave Steri-Strips intact until they fall off spontaneously or are taken off at your follow-up visit) Cleanse incision/area with: Soap & Water Follow Up Care Please Follow Up With: Mahin Smith MD When: 7-10 days postop Test Results: Test results from this visit will be discussed in further detail at your follow- up appointment, if applicable. Discharge Plan Admission Admit Date/Time: 04/14/23 05:16 Primary Reason for Your Visit: Cholecystitis Attending Provider: Mahin Smith Primary Care Provider: Rosina Oscar Consulting Providers: Mahin Smith Discharge Orders/Prescriptions Prescriptions: New oxycodone 5 mg Tablet 5 mg PO Q6H PRN PRN (Reason: Pain Score 6-10) 3 Days Qty: 10 0RF No Action [id number] oil 400 mcg-35 mg -25 mg-5 mg tablet,chewable 1 tab PO DAILY Other Ambulatory Orders: Comprehensive Metabolic Profil (Routine) Timeframe: 10 Day Facility: [facility] - Location: Laboratory Ordered By: Dr. Mahin Smith Referrals / Follow Up: Roisna Oscar CNM [Primary Care Provider] - Mahin Smith MD [Med Staff - Active Staff] - Cherry Guido PA [Non-Staff] - Disposition Disposition (needs filled in before D/C Order can be placed): Home, Self Care
--- NOTE | 2023-04-15 09:43 | DS.PCM_ITS ---
Providers Date of Admission: 04/14/23 Primary Care Physician: Rosina Oscar CNM Consultations 04/14/23 10:07 Consult: General Surgery Routine Consulting Provider: Mahin Smith Reason for Consult: cholecystitis EMERGENT Consult: Yes MD Notified: Yes Date Notified: 04/14/23 Time Notified: 10:07 Method of Notification: Verbal Reason For Visit: POST INFECTION Diagnosis Discharge Diagnosis (1) Cholecystitis: Status: Acute Code(s): K81.9 - Cholecystitis, unspecified Plan: Patient is a 22-year-old female who presents with acute onset abdominal pain and associated nausea beginning earlier this morning. Workup to date is suggestive of early cholecystitis with findings of mild leukocytosis, pericholecystic fluid, cholelithiasis, and exam findings of positive [place] sign. Based on these findings and her persistent tenderness I have recommended proceeding for laparoscopic cholecystectomy. The procedure was described in detail as well as the indications for proceeding. Patient has several questions related to her postoperative recovery and the impact on . Otherwise, she expresses agreement and is presently n.p.o. in the event of needing an intervention. Will look to post with the OR at first availability. (2) Common bile duct dilatation: Status: Acute Code(s): K83.8 - Other specified diseases of biliary tract Plan: Patient, in addition to the above, demonstrates mild elevation of her alkaline phosphatase and dilation of her common bile duct to 7 mm. Taken together, this is suggestive for possible choledocholithiasis. I have shared with her that I would recommend proceeding for cholecystectomy with intraoperative cholangiography so that the latter is able to directly evaluate for the presence of any persistent obstruction to the biliary tree. I also shared with her that a positive study would lead her to require ERCP with stone removal. She expresses some frustration over the fact that she is already required to anesthesia as an operations in the past 3 weeks, but is resigned to see this issue through as well. Patient has already been started on antibiotics per primary team. Will update primary team as to details of surgical plans. Medications at Discharge Home Medications [id number] 400 mcg-om3 35 mg-dha 25 mg-epa 5 mg-fish oil chewable tablet 1 tab PO DAILY 03/26/23 oxycodone 5 mg tablet 5 mg PO Q6H PRN PRN Pain Score 6-10 3 days #10 tabs 04/15/23 Hospital Course Operations cholecystecomy (With intraoperative cholangiogram on 04/14/2023) Procedures None Summary of Care Provided Hospital Course: Patient is a 22-year-old female who is admitted early in the morning on 04/14/2023 to the [facility] after initial evaluation was suggestive of possible pelvic inflammatory disease versus cholecystitis. Patient underwent right upper quadrant ultrasound following her formal admission which was suggestive of the cholecystitis diagnosis. This occasioned a consult to general surgery and upon my evaluation I found patient to exhibit a positive [place] sign alongside of her imaging findings of pericholecystic fluid and a dilated common bile duct. With this constellation of findings I did recommend proceeding for laparoscopic cholecystectomy with cholangiography at first OR availability. Patient's initial OR time was slightly delayed on the account of some p.o. intake but the operation was ultimately undertaken in uncomplicated fashion the afternoon of 04/14/2023. Intraoperatively I noted that patient's contrast seemed delayed in filling the duodenum but no rosi filling defect was appreciated. There was some extravasation of the contrast from the entry site to the cystic duct. I briefly considered repeating the study, however, given the proximity of our duct out of me though to the common bile duct I decided that it was best to risk losing the cuff of the cystic duct and thereby impinging upon the common duct drainage more directly with our clips. The remainder of the procedure went uneventfully but following the operation radiology did suggest an incomplete evaluation of the distal common bile duct. Images were thus reviewed with gastroenterology and they agreed that this likely represented a normal variant potentially due to swelling of the ampulla, but we both agreed there appeared to be filling of the duodenum. Postoperative day 1 patient was found tolerating a clear liquid diet but her LFTs and alkaline phosphatase were elevated. Given the degree of cautery required to stop some mild oozing in the gallbladder fossa the transaminitis seemed well explained. I once again conversed with gastroe nterology and they agreed that the alkaline phosphatase elevation could be due to simply completing the cholangiogram and further agreed that we would simply plan to trend patient's CMP as an outpatient. This complete situation was reviewed with the patient and her at bedside?including hand drawings and original imaging of the cholangiogram to illustrate. They expressed understanding of the information and agreed to obtain laboratories prior to the outpatient follow-up appointment. I confirmed with nursing that patient tolerated her diet advancement and obtained adequate control of her pain simply with oral pain medications. With these final 2 clinical benchmarks met patient was granted discharge to home with outpatient follow-up as discussed above. Physical Exam Const alert, oriented x3 and no apparent distress Resp normal respiratory effort GI GI Narrative: Nondistended, operative dressings intact without drainage, soft, minimally tender to palpation directly about incision sites Weight / BMI Weight Weight: 143 lb Body Mass Index (BMI) 23.8 ABG / Lab / Microbiology Data 04/15/23 05:47 04/15/23 05:47 Laboratory: Laboratory Results - last 24 hr 04/15/23 05:47: WBC 13.9 H, RBC 4.37, Hgb 12.2, Hct 37.7, MCV 86.3, MCH 27.9, MCHC 32.4, RDW Std Deviation 41.3, RDW Coeff of Stuart 13.2, Plt Count 455 H, MPV 9.7, Immature Gran % (Auto) 0.400, Neut % (Auto) 79.3 H, Lymph % (Auto) 14.1 L, Petroleum % (Auto) 5.3, Eos % (Auto) 0.5, Baso % (Auto) 0.4, Absolute Neuts (auto) 11.0 H, Absolute Lymphs (auto) 1.96, Nucleated RBC % 0, Sodium 139, Potassium 4.0, Chloride 108 H, Carbon Dioxide 24.0, Anion Gap 7, BUN 8, Creatinine 0.60, Estim Creat Clear Calc 130.10, Est GFR (MDRD) Af Amer 157, Est GFR (MDRD) Non-Af 130, BUN/Creatinine Ratio 13.3, Glucose 95, Calcium 9.0, Total Bilirubin 0.50, AST 144 H, ALT 132 H, Alkaline Phosphatase 221 H, Total Protein 6.5, Albumin 3.1 L, Globulin 3.4, Albumin/Globulin Ratio 0.9 Radiography Diagnostic Testing: Radiology Impression Gallbladder Ultrasound 04/14/23 05:09 IMPRESSION: Distended gallbladder without gallbladder wall thickening but there is evidence of pericholecystic fluid, gallstones and common bile duct dilatation. The sonographic findings are equivocal for cholecystitis, but when compared with the findings of the CT scan, cholecystitis is likely. Please correlate with lab and physical findings and surgical consultation is recommended Right kidney shows sonographic evidence to suspect medullary sponge kidney with mild right hydronephrosis of uncertain etiology Electronically Signed: Pierre Street MD at 9:46 EST , Cholangiogram 04/14/23 14:30 IMPRESSION: Irregular narrowing of the lower common duct without definitive duodenal luminal opacification (Limited intraoperative images). A lower common duct obstruction/process cannot be excluded. Recommend follow-up with ERCP or MRCP, if indicated when correlating with operative findings. Electronically Signed: Raul Cruz MD ([place]) at 18:23 EST , D/C Instructions Discharge Diet: No restrictions (Consider starting with a lower fat diet) May shower in (days): 1 Ice area for (Minutes): 20 Call your doctor if your incision/area has: Continuous Slow Oozing, Increased Pain/ Swelling, Increased Redness, Foul Smelling Discharge and Swelling at the incision site Call your doctor if you observe: Fever of 101 or Higher Cleanse incision/area with: Soap & Water Please Follow Up With: Mahin Smith MD When: 7-10 days postop Meaningful Use Info Meaningful Use Diagnoses (Choose all that apply): None applicable Discharge Plan Admission Admit Date/Time: 04/14/23 05:16 Primary Reason for Your Visit: Cholecystitis Attending Provider: Mahin Smith Primary Care Provider: Rosina Oscar Consulting Providers: Mahin Smith Discharge Orders/Prescriptions Prescriptions: New oxycodone 5 mg Tablet 5 mg PO Q6H PRN PRN (Reason: Pain Score 6-10) 3 Days Qty: 10 0RF No Action [id number] oil 400 mcg-35 mg -25 mg-5 mg tablet,chewable 1 tab PO DAILY Other Ambulatory Orders: Comprehensive Metabolic Profil (Routine) Timeframe: 10 Day Facility: [facility] - Location: Laboratory Ordered By: Dr. Mahin Smith Referrals / Follow Up: Rosina Oscar CNM [Primary Care Provider] - Mahin Smith MD [Med Staff - Active Staff] - Cherry Guido PA [Non-Staff] - Disposition Disposition (needs filled in before D/C Order can be placed): Home, Self Care Charges/Coding Visit Charges Inpatient E&M: 78150 Disch Hosp
[2023-04-15] MEDS: Polyethylene Glycol 3350 17 GM PACKET PO (10:03)
[2023-04-15] MEDS: Acetaminophen 500 MG Tablet 1000 MG PO (12:33)
[2023-04-15] MEDS: oxyCODONE 5 MG Tablet PO (12:34)
== END 2023-04-15 14:17 | disposition home or self-care (01) | DRG 419 ==
LOC: ED 05:10 → PCU 05:47
PROVIDERS: Obstetrics & Gynecology; Admitting Provider Surgery; Emergency Provider Emergency Medicine; PCP Midwife; Visit Provider Surgery
PROC: 0FT44ZZ Resection of Gallbladder, Percutaneous Endoscopic Approach (ICD-10-PCS; CPT 47610; principal; 2023-04-14 13:00)
DX: K81.0 Acute cholecystitis (principal); K83.8 Other specified diseases of biliary tract
CPT/HCPCS: 36415; 74177; 74300; 76000; 76705; 80048; 80053; 80061; 80076; 81001; 83605; 83690; 85025; 88304; 99284; J7030; J7040; Q9967; A4216; J0290; J2405

== ENCOUNTER → 2023-04-24 | Outpatient (CLI) | payer OTHER, SELFPAY ==
--- OUTSIDE RECORDS SUMMARY | 2023-04-24 08:24 | XMS RPT_ITS | CCD ---
Author Name Unknown Address [address] [place] [address] Organization [facility] Care Team Providers Care Chair Springer Name Role Phone TARA, DR TEMO Jones [...] Guido PA-C Unavailable Cherry Guido PA-C Unavailable [employer]/Gynecology Prov. Unavailable Un available Emma Simmons MD Unavailable Anatoliy SIGNS AND DISPLAYS SALES REPRESENTATIVE, Lala Unavailable Day SIGNS AND DISPLAYS SALES REPRESENTATIVE, Tete Unavailable Unavailable Gogoi (scribe), Hemanta Unavailable Unavaila ble Evangelista SIGNS AND DISPLAYS SALES REPRESENTATIVE, Tayler Unavailable Unavailable Omega Lowe MD Unavailable King JESSICA-C, Chip Farley Unavailable Gia CARDENAS, Lavinia Wong Unavailable Unavaila megha Han RN, Jazmín Unavailable Prieto CARDENAS, Delmy Barton Unavailable Unavailable Uptain CNM, Acacia Cuevas Unavailable Vess SIGNS AND DISPLAYS SALES REPRESENTATIVE, Neilee L Unavailable Unavailable Wengerd SIGNS AND DISPLAYS SALES REPRESENTATIVE, Anjali Unavailable Unavailabl e Zaugg SIGNS AND DISPLAYS SALES REPRESENTATIVE, Hayley Unavailable Unavailable Unavailable Unavailable Uptain [facility] Primary Care Provider CHERY, HAYLEY Attending Unavailable PRABHAKAR, HAYLEY Referring Unavailable PRABHAKAR, HAYLEY Referring Unavailable ULICES CASIANO Attending Unavailable ANDRIA ROCK Attending Unavailable UPTAIN, RED CLIFF Primary Care Unavailable WISWELL, KOURTNEY Attending Unavailable UPTAIN, ACACIA Primary Care Unavailable SELF Referring Unavailable WISWELL, KOURTNEY Attending Unavailable RPABHAKAR, HAYLEY Referring Unavailable PRABHAKAR, HAYLEY Attending Unavailable UPTAIN, ACACIA Primary Care Unavailable SELF Referring Unavailable WISWELL, KOURTNEY Attending Unavailable UPTAIN, RED CLIFF Primary Care Unavailable PRABHAKAR, HAYLEY Referring Unavailable PLOTTS, RADHA Attending Unavailable PRABHAKAR, HAYLEY Referring Unavailable PRABHAKAR, HAYLEY Attending Unavailable PLOTTS, RADHA Attending Unavailable PLOTTS, RADHA Attending Unavailable ULICES CASIANO Attending Unavailable PRABHAKAR, HAYLEY Referring Unavailable PRABHAKAR, HAYLEY Attending Unavailable ULICES CASIANO Attending Unavailable Allergies Allergy Classification Reported Allergen(s) Allergy Type Date of Onset Reaction(s) Facility (13 sources) Seasonal allergy; Translations: [SEASONAL ALLERGIES] Allergy to substance 9 Other: See Comments [facility] Work Phone: Medications Current Medications Medication [...] Date Documented Da te Episodic/Chronic Allergic reactions (12 sources) Urticaria; Translations: [Urticaria, unspecified] 12-10-2018 Episodic Anxiety disorders (18 sources) Anxiety; Translations: [Anxiety disorder, unspecified] 12-10-2018 Chronic Conditions associated with dizziness or vertigo (6 sources) Vertigo; Translations: [Dizziness and giddiness] 05-27-2013 [...] Translations: [Dorsalgia, unspecified] Onset: 12-16-2019 Episodic Unclassified (6 sources) Well adult female - The patient [...] wanting to start on control 12-10-2019 Unclassified (6 sources) Rash - The onset of the [...] new foods, laundry detergents, etc. 04-18-2018 Unclassified (6 sources) Follow up for chronic condition - [...] different medanxiety has gotten work 01-31-2018 Unclassified (6 sources) Anxiety - The anxiety has been [...] as school and body with will shake. [place] that she has had a panic attack about once a week. 11-17-2017 Unclassified (6 sources) Cold Symptoms - Symptoms include nasal [...] respiratory infection : no appetite 03-07-2017 Unclassified (6 sources) Sore throat - The onset of [...] had pain of her back. 03-10-2016 Unclassified (6 sources) Abdominal pain - The abdominal pain [...] at school other than volleyball. 12-23-2014 Unclassified (6 sources) Well child visit #4 - 13 [...] dealing with bullying at school when at [employer]; will go to [place] this year and is liking that it is smaller so far 09-21-2014 Unclassified (6 sources) UTI - Symptoms include dysuria, urinary [...] 2 weeks ago; continues OCP. 06-30-2014 Unclassified (6 sources) Well child visit #4 - 13 [...] be on OCPs to prevent 09-08-2013 Unclassified (6 sources) Sore throat - The onset of [...] improved; no nausea or vomitting 06-02-2013 Unclassified (6 sources) Dizziness - The onset of the [...] some allergy meds and tylenol 05-27-2013 Unclassified (6 sources) Form Completion Physicals - The patient [...] completion physical : Tdap 09/15/11. 08-26-2012 Unclassified (6 sources) Well child visit #4 - 13 [...] belts and home smoke detectors. 09-15-2011 Unclassified (6 sources) Well child visit #3 - 4 [...] 2 days. Otherwise no concerns. 08-30-2010 Unclassified (6 sources) Cold Symptoms - Symptoms include runny [...] 64.86 kg Kourtney Lorenzana MD Work Phone: [facility] 04-02-2023 10:03-0500 Diastolic blood pressure 60 mm[Hg] Kourtney Lorenzana MD Work Phone: [facility] 04-02-2023 10:03-0500 Systolic blood pressure 102 mm[Hg] Kourtney Lorenzana MD Work Phone: [facility] 03-22-2023 10:40-0500 Body height 165.1 cm Kourtney Lorenzana MD Work Phone: [facility] 03-22-2023 10:40-0500 Body weight 72.12 kg Kourtney Lorenzana MD Work Phone: [facility] 03-22-2023 10:40-0500 Diastolic blood pressure 80 mm[Hg] Kourtney Lorenzana MD Work Phone: [facility] 03-22-2023 10:40-0500 Heart rate 84 /min Kourtney Lorenzana MD Work Phone: [facility] 03-22-2023 10:40-0500 Respiratory rate 16 /min Kourtney Lorenzana MD Work Phone: [facility] 03-22-2023 10:40-0500 SaO2% (BldA) [Mass fraction] 100 % Kourtney Lorenzana MD Work Phone: [facility] 03-22-2023 10:40-0500 Systolic blood pressure 122 mm[Hg] Kourtney Lorenzana MD Work Phone: [facility] 01-10-2023 15:15-0500 Body weight 69.4 kg Ulices Casiano MD Work Phone: [facility] 01-10-2023 15:15-0500 Diastolic blood pressure 58 mm[Hg] Ulices Casiano MD Work Phone: [facility] 01-10-2023 15:15-0500 Systolic blood pressure 102 mm[Hg] Ulices Casiano MD Work Phone: [facility] 12-15-2022 09:00-0400 Body weight 67.31 kg Hayley Prabhakar APRN.CNM Work Phone: [facility] 12-15-2022 09:00-0400 Diastolic blood pressure 60 mm[Hg] Hayley Prabhakar APRN.CNM Work Phone: [facility] 12-15-2022 09:00-0400 Systolic blood pressure 110 mm[Hg] Hayley Prabhakar APRN.CNM Work Phone: [facility] 10-13-2022 08:59-0400 Body weight 65.77 kg Radha Moreau OVEN DUMPER.CNM Work Phone: [facility] 10-13-2022 08:59-0400 Diastolic blood pressure 62 mm[Hg] Radha Plotts OVEN DUMPER.CNM Work Phone: [facility] 10-13-2022 08:59-0400 Systolic blood pressure 98 mm[Hg] Radha Plotts OVEN DUMPER.CNM Work Phone: [facility] 09-15-2022 09:57-0400 Body weight 67.59 kg Radha Plotts OVEN DUMPER.CNM Work Phone: [facility] 09-15-2022 09:57-0400 Diastolic blood pressure 66 mm[Hg] Radha Plotts OVEN DUMPER.CNM Work Phone: [facility] 09-15-2022 09:57-0400 Systolic blood pressure 108 mm[Hg] Radha Plotts OVEN DUMPER.CNM Work Phone: [facility] 07-23-2022 09:21-0400 Body temperature 100.71 [degF] Emiliano Deng OVEN DUMPER.METAL POLISHER AND BUFFER APPRENTICE Work Phone: [facility] 07-23-2022 09:21-0400 Body weight 71.58 kg Emiliano Deng OVEN DUMPER.METAL POLISHER AND BUFFER APPRENTICE Work Phone: [facility] 07-23-2022 09:21-0400 Diastolic blood pressure 80 mm[Hg] Emiliano Deng OVEN DUMPER.METAL POLISHER AND BUFFER APPRENTICE Work Phone: [facility] 07-23-2022 09:21-0400 Heart rate 108 /min Emiliano Deng OVEN DUMPER.METAL POLISHER AND BUFFER APPRENTICE Work Phone: [facility] 07-23-2022 09:21-0400 Respiratory rate 20 /min Emiliano Deng OVEN DUMPER.METAL POLISHER AND BUFFER APPRENTICE Work Phone: [facility] 07-23-2022 09:21-0400 SaO2% (BldA) [Mass fraction] 97 % Emiliano Deng OVEN DUMPER.METAL POLISHER AND BUFFER APPRENTICE Work Phone: [facility] 07-23-2022 09:21-0400 Systolic blood pressure 112 mm[Hg] Emiliano Deng APRN.CNP Work Phone: [facility] 12-10-2019 13:170400 Body height 165.74 cm Tayler Naidu LPN [facility], [facility]. 12-10-2019 13:170400 Body mass index (BMI) [Ratio] 24.77 kg/m2 Tayler Naidu LPN [facility], [facility].; [facility]. 12-10-2019 13:170400 Body surface area Derived from formula 1.76 m2 Tayler Naidu LPN [facility], [facility].; [place] [employer] [facility], [facility]. 12-10-2019 13:17040 Body weight 68.04 kg Tayler Naidu LPN [facility], [facility].; [facility], [facility]. 12-10-2019 13:170400 Diastolic blood pressure 81 mm[Hg] Tayler Naidu LPN [facility], [facility].; [place] [employer] [facility], [facility]. Encounters Encounter Date Encounter Type Care Provider Facility Start: 04-02-2023 End: 04-02-2023 ambulatory CRYSTAL UPTAIN Facility:[facility] Start: 04-02-2023 End: 04-02-2023 Patient encounter procedure Kourtney Lorenzana MD Work Phone: OB/Gynecology Procedures Date Procedure Procedure Detail Performing Clinician Start: 03-22-2023 URINE OB DIP B/O Kourtney diaz MD Work Phone: Start: 01-10-2023 URINE OB DIP B/O Juliane Casiano MD Work Phone: Start: 10-13-2022 URINE OB DIP B/O Felipe Moreau OVEN DUMPER.CNM Work Phone: Start: 09-15-2022 URINE OB DIP B/O Felipe Moreau APRN.CNM Work Phone: Start: 08-21-2022 Antibody screen HAYLEYPENELOPE PRABHAKAR Plan of Treatment Date Care Activity Detail Author Start: 01-10-2033 Urine microalbumin profile [facility] Start: 09-18-2028 Urine microalbumin profile [facility] Start: 08-21-2025 PAP TESTING PAP TESTING [facility] Start: 08-21-2025 Screening for malign ant neoplasm of cervix Pap Testing [facility] Start: 08-22-2023 CHLAMYDIA SCREENING (18-24) CHLAMYDIA SCREENING (18-24) [facility] Start: 08-22-2023 GC (GONORRHEA) SCREE LILIA (18-24) GC (GONORRHEA) SCREENING (18-24) [facility] Start: 02-19-2023 Depression Assessment Depression Ass essment [facility] Start: 12-15-2022 End: 03-16-2023 CBC W Auto Differential panel - Blood CBC + DIFF Lab Routine with history of section, antepartum 24 weeks gestation of Expected: 12/15/2022, Expires: 03/16/2023 [facility] Work Phone: Immunizations Immunization Date Immunization Notes Care Provider Geraldine jules 02-16-2023 respiratory syncytia l virus (RSV) vaccine, bivalent (ABRYSVO) Kourtney Lorenzana MD Work Phone: [facility] 01-10-2023 tetanus toxoid, redu mayito diphtheria toxoid, and acellular pertussis vaccine, adsorbed Ulices Casiano MD Work Phone: [facility] 03-03-2021 influenza, seasonal, injectable, preservative free Ulices Casiano MD Work Phone: [facility] 03-03-2021 influenza virus vacc ine, unspecified formulation Hayley Prabhakar APRN.CNM Work Phone: [facility] 09-18-2018 tetanus toxoid, redu mayito diphtheria toxoid, and acellular pertussis vaccine, adsorbed Emiliano Deng APRN.METAL POLISHER AND BUFFER APPRENTICE Work Phone: [facility] Work Phone: 09-08-2015 meningococcal polysaccharide (groups A, C, Y and W-135) diphtheria toxoid conjugate vaccine (MCV4P) Ulices Casiano MD Work Phone: [facility] Payers Date Payer Category Payer Unknown [id number] 2021 Unknown [id number] 1998 Unknown [id number] 1998 Unknown [id number] 1998 Unknown [id number] 1998 Unknown [id number] Unknown [id number] Unknown [id number] Social History Date Type Detail Facility [facility]: [facility] Start: 07-23-2022 Tobacco use and exposure Smoke less tobacco non-user [facility] Start: 07-23-2022 End: 04-02-2023 Alcohol intake Lifetime non-drinker (finding) [facility] Start: 01-23-2019 History SDOH Alcohol Frequency 1 [facility] Start: 2000 Sex Assigned At Not on file [facility] Start: 08-14-2022 Education 16 [facility] Start: 07-08-2022 [facility] Start: 01-23-2019 End: 08-14-2022 History of Social function [facility] Start: 01-23-2019 End: 08-14-2022 Alcohol Use Disorder Identification Test - Consumption [AUDIT-C] [facility] How often to you hav e a drink containing alcohol? Never [facility] Average Number of Drinks Not on file [facility] Tobacco/Smoke Exposure: Tobacco/ Smoke Exposure: ; None. [employer] Female [employer] Work Phone: None [employer] Work Phone: Goals Date Patient Goal Desired Activity /State Personal health goal Clinical Notes 10-07-2018 to 04-02-2023 Kourtney Lorenzana MD - 04/02/2023 10:02 AM Diana Saenz RN - 03/26/2023 4:51 PM ESTPrenatal Quick Notes - Kourtney Lorenzana MD - 03/22/2023 10:52 AM Kourtney Wade MD - 03/22/2023 10:41 AM EST Note Date & Type Note Facility 04-02-2023 Note HNO ID: [id number] Author: KOURTNEY LORENZANA MD Service: ? Author [...] every 2 hours, does not feel rested Si[place] since delivery: Not resumed Emotional support: Yes [...] visit and as needed Kourtney Lorenzana DO [facility] 04-02-2023 History of Presen t illness Narrative [...] every 2 hours, does not feel rested Siren since delivery: Not resumed Emotional support: Yes [...] Kourtney Lorenzana DO documented in this encounter [facility] 03-26-2023 Note HNO ID: [id number] Author: DIANA KIMBROUGH RN Service: ? Author Type: Registered Nurse Type: Progress Notes Filed: 03/26/2023 16:53 Note Text: Patient delivered via by Dr. Lorenzana on 03/26/23 at [facility]. See OB history. Diana Kimbrough RN [facility] 03-26-2023 History of Presen t illness Narrative Patient delivered via by Dr. Lorenzana on 03/26/23 at [facility]. See OB history. Diana Kimbrough RN documented in this encounter [facility] 03-22-2023 Miscellaneous Notes Formattin g of this note might be different from the original. SW- Pre op today. documented in this encounter [facility] 03-22-2023 History and physical note Pre-Op [...] 4 - Moderate documented in this encounter [facility] 03-22-2023 Vivian Baig Ma - 03/22/2023 10:41 AM EST SEQUENTIAL SCREENINGS The [facility] offers sequential screenings for women who [...] It will require an appointment with our appraisal technician. This is not an ultrasound performed [...] the above symptoms, contact our office at [phone] and ask to speak with a nurse. After hours, you can call doctors registry at [phone] OR call [facility] at [phone] and ask to have the doctor health analytics consultant paged. If you consider this an emergency, dial 4-1-7 or go to your nearest emergency department. NEED HELP? Are you dealing with a violent or abusive relationship? Are you a victim of rape or sexual assult? Call [facility] ([place]) 24 hour Crisis Hotline: 612.443.1681 or 854-821-7313. MANUAL Your Guide to a Healthy manual is now on-line. Visit [email or web address] [email or web address] to download your free copy documented in this encounter [facility] 03-09-2023 Note HNO ID: [id number] Author: CHIP ACEVEDO APRN.METAL POLISHER AND BUFFER APPRENTICE Service: ? Author Type: Nurse Practitioner Type: [...] in 3-5 days if symptoms worsening -notify supervisor sewer maintenance of positive test. 2. URI, acute - ICD9: 465.9, ICD10: J06.9 - Discussed viral etiology and rationale for treatment. - Symptomatic treatment with prn analgesia - Supportive care with fluids and rest - INFLUENZA AANDB MOLECULAR (POC) Chip Acevedo APRN.METAL POLISHER AND BUFFER APPRENTICE [facility] 01-26-2023 Miscellaneous Notes Formattin g of this note might be different from the original. [place] paperwork completed. Pt notified and original placed at front office clerk for pt to pick up attendant. Copy scanned into EMR and filed in CASING WORKER suite. Lavinia Vallejo LPN [facility] paperwork completed and placed on providers desk for signature. Lavinia Vallejo LPN documented in this encounter [facility] 01-10-2023 Note HNO ID: [id number] Author: Vivian Woodard Ma Service: ? Author [...] severely ill: Yes Patient denies history of Guillain-[place]abet[place] Syndrome (a severe paralytic illness): Yes Tdap Adacel injection was given without incident. See immunizations for details of immunizations administered today. VIS sheet provided: Yes Provider Dr Casiano was present in office at time of injection. Vivian Woodard Ma [facility] 01-10-2023 Miscellaneous Notes Formattin g of this [...] for breech, desires repeat, will schedule Ulices Casiano M.D. documented in this encounter [facility] 01-10-2023 History of Presen t illness [...] severely ill: Yes Patient denies history of Guillain-[place]et[place] Syndrome (a severe paralytic illness): Yes Tdap Adacel injection was given without incident. See immunizations for details of immunizations administered today. VIS sheet provided: Yes Provider Dr Casiano was present in office at time of injection. Vivian Woodard Ma documented in this encounter [facility] 01-10-2023 Instructions Vivian Woodard Ma - 01/10/2023 2:55 PM EST SEQUENTIAL SCREENINGS The [facility] offers sequential screenings for women who [...] It will require an appointment with our appraisal technician. This is not an ultrasound performed [...] the above symptoms, contact our office at [phone] and ask to speak with a nurse. After hours, you can call doctors registry at [phone] OR call [facility] at [phone] and ask to have the doctor health analytics consultant paged. If you consider this an emergency, dial 9-1-5 or go to your nearest emergency department. NEED HELP? Are you dealing with a violent or abusive relationship? Are you a victim of rape or sexual assult? Call [facility] ([place]) 24 hour Crisis Hotline: 133.921.3973 or 640-222-9662. MANUAL Your Guide to a Healthy manual is now on-line. Visit [email or web address] [email or web address] to download your free copy documented in this encounter [facility] 12-15-2022 Miscellaneous Notes Formattin g of [...] Hayley Prabhakar APRN.CNM documented in this encounter [facility] 12-15-2022 Instructions Nick Reddy Cma - 12/15/2022 8:53 AM EDT SEQUENTIAL SCREENINGS The [facility] offers sequential screenings for women who [...] It will require an appointment with our appraisal technician. This is not an ultrasound performed [...] the above symptoms, contact our office at [phone] and ask to speak with a nurse. After hours, you can call doctors registry at [phone] OR call [facility] at [phone] and ask to have the doctor health analytics consultant paged. If you consider this an emergency, dial 9--2 or go to your nearest emergency department. NEED HELP? Are you dealing with a violent or abusive relationship? Are you a victim of rape or sexual assult? Call [facility] ([place] 24 hour Crisis Hotline: 779.687.6039 or 592-040-3489. MANUAL Your Guide to a Healthy manual is now on-line. Visit [email or web address] [email or web address] to download your free copy documented in this encounter [facility] 10-13-2022 Miscellaneous Notes Formattin g of [...] Radha Moreau APRN.CNM documented in this encounter [facility] 10-13-2022 Instructions Nick Reddy Cma - 10/13/2022 8:53 AM EDT SEQUENTIAL SCREENINGS The [facility] offers sequential screenings for women who [...] It will require an appointment with our appraisal technician. This is not an ultrasound performed [...] the above symptoms, contact our office at [phone] and ask to speak with a nurse. After hours, you can call doctors registry at [phone] OR call [facility] at [phone] and ask to have the doctor health analytics consultant paged. If you consider this an emergency, dial 9-1-5 or go to your nearest emergency department. NEED HELP? Are you dealing with a violent or abusive relationship? Are you a victim of rape or sexual assult? Call [facility] ([place] 24 hour Crisis Hotline: 391.757.1947 or 651-411-1491. MANUAL Your Guide to a Healthy manual is now on-line. Visit [email or web address] [email or web address] to download your free copy documented in this encounter [facility] 10-12-2022 Note HNO ID: [id number] Author: Hayley Prabhakar APRN.CNM Service: ? Author Type: Lens Engraver Type: Progress Notes Filed: 10/12/2022 9:43 AM Note Text: OB point of care ultrasound was performed. See imaging tab for details. Hayley Prabhakar APRN.CNM [facility] 10-12-2022 History of Presen t illness Narrative OB point of care ultrasound was performed. See imaging tab for details. Hayley Prabhakar APRN.CNM documented in this encounter [facility] 09-15-2022 Miscellaneous Notes Formattin g of [...] Radha Moreau APRN.CNM documented in this encounter [facility] 09-15-2022 Instructions Nick Reddy Cma - 09/15/2022 9:51 AM EDT SEQUENTIAL SCREENINGS The [facility] offers sequential screenings for women who [...] It will require an appointment with our appraisal technician. This is not an ultrasound performed [...] the above symptoms, contact our office at [phone] and ask to speak with a nurse. After hours, you can call doctors registry at [phone] OR call [facility] at [phone] and ask to have the doctor health analytics consultant paged. If you consider this an emergency, dial 9-1-1 or go to your nearest emergency department. NEED HELP? Are you dealing with a violent or abusive relationship? Are you a victim of rape or sexual assult? Call [facility] ([place]) 24 hour Crisis Hotline: 212.340.2271 or 443-278-9405. MANUAL Your Guide to a Healthy manual is now on-line. Visit [email or web address] [email or web address] to download your free copy documented in this encounter [facility] 08-21-2022 Note HNO ID: [id number] Author: Hayley Prabhakar APRN.CNM Service: ? Author Type: Lens Engraver Type: Progress Notes Filed: 08/21/2022 11:14 AM [...] use: No Multivitamin with Folic acid: Yes Voodoo or heritage: No Would refuse blood transfusion if medically necessary: No Are you currently employed? Yes, Occupation: [employer] Do you have any history [...] symmetric, no domin (more content not included)... [facility] 08-14-2022 Note HNO ID: [id number] Author: Laila Jimenez RN Service: ? Author [...] None, Apgar5: None, Living: None, Comments: None [facility] 08-14-2022 Miscellaneous Notes Formattin g of this [...] testing.Laila Jimenez RN documented in this encounter [facility] 08-14-2022 History of Presen t illness [...] None, Comments: None documented in this encounter [facility] 08-09-2022 Miscellaneous Notes Formattin g of this note might be different from the original. Patient scheduled Left message for patient to return phone call. Patient has an appointment with Loi Prabhakar for NOB appointment. Please schedule PNOB appointment. documented in this encounter [facility] 07-23-2022 Note HNO ID: [id number] Author: Emiliano Deng APRN.MONTRELL Service: ? Author [...] started abruptly. Patient states they have used kato-khx-dkogoam medication with some success. Patient states they [...] of care. This note was generated using [employer] software. It may contain errors in wording, (more content not included)... [facility] 07-23-2022 History of Presen t illness Narrative Subjective HPI Nontoxic-appearing female presents urgent care chief complaint flulike symptoms. Duration of symptoms 2 days Associated symptoms with today's chief complaint are on and off headache, muscle aches, fatigue, nonproductive cough, diarrhea, ear pain, and fever. Patient stated symptoms started abruptly. Patient states they have used isun-dkg-xooefiw medication with some success. Patient states they [...] of care. This note was generated using [employer] software. It may contain errors in wording, punctuation, or spelling. Emiliano Deng APRN.CNP documented in this encounter [facility] documented as of this encounter (statuses as of 07/23/2022) [facility]08-19-2019 History of Past illness Narrative* Problem Noted Date Resolved Date Elevated liver enzymes 10/07/2018 9 Overview: 10/07/18-AST 50. No signs of pre-e.Hayley Prabhakar APRN.CNM Patient requested diagnostic testing 05/09/2018 11/29/2018 Overview: 05/09/2018Patient desires nuchal ultrasound. Declines CF carrier screening testing. TKRN documented as of this encounter (statuses as of 08/09/2022) [facility]08-19-2019 History of Past illness Narrative* Problem Noted Date Resolved Date Elevated liver enzymes 10/07/2018 9 Overview: 10/07/18-AST 50. No signs of pre-e.Hayley Prabhakar APRN.CNM Patient requested diagnostic testing 05/09/2018 11/29/2018 Overview: 05/09/2018Patient desires nuchal ultrasound. Declines CF carrier screening testing. TKRN documented as of this encounter (statuses as of 08/14/2022) [facility]08-[facility]-2019 History of Past illness Narrative* Problem Noted Date Diagnosed Date Resolved Date Elevated liver enzymes 10/07/201801/23 Overview: 10/07/18-AST 50. No signs of pre-e.Hayley Prabhakar, OVEN DUMPER.CNM Patient requested diagnostic testing 05/09/2018 11/29/2018 Overview: 05/09/2018Patient desires nuchal ultrasound. Declines CF carrier screening testing. TKRN documented as of this encounter (statuses as of 09/15/2022) [facility]08-[facility] History of Past illness Narrative* Problem Noted Date Diagnosed Date Resolved Date Elevated liver enzymes 10/07/201801/23 Overview: 10/07/18-AST 50. No signs of pre-e.Hayley Prabhakar APRN.CNM Patient requested diagnostic testing 05/09/2018 11/29/2018 Overview: 05/09/2018Patient desires nuchal ultrasound. Declines CF carrier screening testing. TKRN documented as of this encounter (statuses as of 10/12/2022) [place] [address]-19-2019 History of Past illness Narrative* Problem Noted Date Diagnosed Date Resolved Date Elevated liver enzymes 10/07/201801/23 Overview: 10/07/18-AST 50. No signs of pre-e.Hayley Prabhakar APRN.CNM Patient requested diagnostic testing 05/09/2018 11/29/2018 Overview: 05/09/2018Patient desires nuchal ultrasound. Declines CF carrier screening testing. TKRN documented as of this encounter (statuses as of 10/13/2022) [facility] History of Past illness Narrative* Problem Noted Date Diagnosed Date Resolved Date Elevated liver enzymes 10/07/201801/23 Overview: 10/07/18-AST 50. No signs of pre-e.Hayley Prabhakar APRN.CNM Patient requested diagnostic testing 05/09/2018 11/29/2018 Overview: 05/09/2018Patient desires nuchal ultrasound. Declines CF carrier screening testing. TKRN documented as of this encounter (statuses as of 12/15/2022) [address]19-2019 History of Past illness Narrative* Problem Noted Date Diagnosed Date Resolved Date Elevated liver enzymes 10/07/201801/23 Overview: 10/07/18-AST 50. No signs of pre-e.Hayley Prabhakar APRN.CNM Patient requested diagnostic testing 05/09/2018 11/29/2018 Overview: 05/09/2018Patient desires nuchal ultrasound. Declines CF carrier screening testing. TKRN documented as of this encounter (statuses as of 01/10/2023) [facility]08-[facility] History of Past illness Narrative* Problem Noted Date Diagnosed Date Resolved Date Elevated liver enzymes 10/07/201801/23 Overview: 10/07/18-AST 50. No signs of pre-e.Hayley Prabhakar APRN.CNM Patient requested diagnostic testing 05/09/2018 11/29/2018 Overview: 05/09/2018Patient desires nuchal ultrasound. Declines CF carrier screening testing. TKRN documented as of this encounter (statuses as of 01/26/2023) [facility]08-[facility]2019 History of Past illness Narrative* Problem Noted Date Diagnosed Date Resolved Date Elevated liver enzymes 10/07/201801/23 Overview: 10/07/18-AST 50. No signs of pre-e.Hayley Prabhakar APRN.CNM Patient requested diagnostic testing 05/09/2018 11/29/2018 Overview: 05/09/2018Patient desires nuchal ultrasound. Declines CF carrier screening testing. TKRN documented as of this encounter (statuses as of 03/26/2023) [facility]08-[facility]-2019 History of Past illness Narrative* Problem Noted Date Diagnosed Date Resolved Date Elevated liver enzymes 10/07/201801/23 Overview: 10/07/18-AST 50. No signs of pre-e.Hayley Prabhakar APRN.CNM Patient requested diagnostic testing 05/09/2018 11/29/2018 Overview: 05/09/2018Patient desires nuchal ultrasound. Declines CF carrier screening testing. TKRN documented as of this encounter (statuses as of 03/27/2023) [facility]08-[facility]-2019 History of Past illness Narrative* Problem Noted Date Diagnosed Date Resolved Date Elevated liver enzymes 10/07/201801/23 Overview: 10/07/18-AST 50. No signs of pre-e.Hayley Prabhakar APRN.CNM Patient requested diagnostic testing 05/09/2018 11/29/2018 Overview: 05/09/2018Patient desires nuchal ultrasound. Declines CF carrier screening testing. TKRN documented as of this encounter (statuses as of 04/02/2023) [facility] Sore throat- Primary Acute pharyngitis Viral illness Unspecified viral infection, in conditions classified elsewhere and of unspecified site [facility] Diagnosis with history of section, antepartum- Primary History of anxiety/depression Personal history of other mental disorder [facility] Diagnosis 11 weeks gestation of - Primary state, incidental [facility] Diagnosis with uncertain dates in first trimester- Primary [facility] Diagnosis 15 weeks gestation of - Primary state, incidental [facility]* Diagnosis with history of section, antepartum- Primary 24 weeks gestation of state, incidental [facility] Diagnosis 28 weeks gestation of - Primary state, incidental with history of section, antepartum Need for vaccination Need for prophylactic vaccination and inoculation against unspecified single disease [facility] Diagnosis Encounter for supervision of other normal in third trimester- Primary with history of section, antepartum 38 weeks gestation of state, incidental [facility] Diagnosis Status post section routine follow-up- Primary Routine follow-up state Routine follow-up documented in this encounter [facility] Summary Purpose Family History Lung Cancer Status:Active [...] Date Diagnosed Date [facility] 08/21/2022 [facility] - [place] 08/21/2022 Problem Noted Date Diagnosed Date [facility] 08/21/2022 [facility] - [place] 08/21/2022 Problem Noted Date Diagnosed Date [facility] 08/21/2022 [facility] - [place] 08/21/2022 Problem Noted Date Diagnosed Date [facility] 08/21/2022 Education - [place] 08/21/2022 Problem Noted Date Diagnosed Date [facility] 08/21/2022 Education - [place] 08/21/2022 Problem Noted Date Diagnosed Date [facility] 08/21/2022 Education - [place] 08/21/2022 Problem Noted Date Diagnosed Date [facility] 08/21/2022 Education - [place] 08/21/2022 Problem Noted Date Diagnosed Date [facility] 08/21/2022 [facility] - [place] 08/21/2022 Additional Source Comments INFORMATION SOURCE (unrecogn ized section and content) DATE CREATED AUTHOR AUTHOR'S ORGANIZ ATION 12/18/2019 [facility] DATE CREATED AUTHOR AUTHOR'S ORGANIZ ATION [facility] DATE CREATED AUTHOR AUTHOR'S ORGANIZ ATION 04/03/2023 [facility] Source Comments (unrecognize d section and content) In the event this informatio n is protected by the Federal Confidentiality of Alcohol and Drug Abuse Patient Records regulations: The Federal rules restrict any use of the information to criminally investigate or prosecute any alcohol or drug abuse patient.[facility] the event this information is protected by the Federal Confidentiality of Alcohol and Drug Abuse Patient Records regulations: The Federal rules restrict any use of the information to criminally investigate or prosecute any alcohol or drug abuse patient.[facility] the event this information is protected by the Federal Confidentiality of Alcohol and Drug Abuse Patient Records regulations: The Federal rules restrict any use of the information to criminally investigate or prosecute any alcohol or drug abuse patient.[facility] the event this information is protected by the Federal Confidentiality of Alcohol and Drug Abuse Patient Records regulations: The Federal rules restrict any use of the information to criminally investigate or prosecute any alcohol or drug abuse patient.[facility] the event this information is protected by the Federal Confidentiality of Alcohol and Drug Abuse Patient Records regulations: The Federal rules restrict any use of the information to criminally investigate or prosecute any alcohol or drug abuse patient.[facility] the event this information is protected by the Federal Confidentiality of Alcohol and Drug Abuse Patient Records regulations: The Federal rules restrict any use of the information to criminally investigate or prosecute any alcohol or drug abuse patient.[facility] the event this information is protected by the Federal Confidentiality of Alcohol and Drug Abuse Patient Records regulations: The Federal rules restrict any use of the information to criminally investigate or prosecute any alcohol or drug abuse patient.[facility] the event this information is protected by the Federal Confidentiality of Alcohol and Drug Abuse Patient Records regulations: The Federal rules restrict any use of the information to criminally investigate or prosecute any alcohol or drug abuse patient.[facility] the event this information is protected by the Federal Confidentiality of Alcohol and Drug Abuse Patient Records regulations: The Federal rules restrict any use of the information to criminally investigate or prosecute any alcohol or drug abuse patient.[facility] the event this information is protected by the Federal Confidentiality of Alcohol and Drug Abuse Patient Records regulations: The Federal rules restrict any use of the information to criminally investigate or prosecute any alcohol or drug abuse patient.[facility] Hospital[facility] the event this information is protected by the Federal Confidentiality of Alcohol and Drug Abuse Patient Records regulations: The Federal rules restrict any use of the information to criminally investigate or prosecute any alcohol or drug abuse patient.[facility] Hospital[facility] the event this information is protected by the Federal Confidentiality of Alcohol and Drug Abuse Patient Records regulations: The Federal rules restrict any use of the information to criminally investigate or prosecute any alcohol or drug abuse patient.[facility] Reason for Visit (unrecogniz ed section [...] Care Teams (unrecognized sec tion and content) Chair Springer Relationship Specialty Start Date End Date Acacia Oscar CNM [address] [place] [address] PCP - General [employer] 03/09/23 Chair Springer Relationship Specialty Start Date End Date Acacia Oscar CNM [address] [place] [address] PCP - General [employer] Consult[employer] 03/09/23 FOR RECORDS PERTAINING TO PATIENTS WHO [...] BE BASED ON THE PRIMARY CLINICAL RECORDS. [facility] [employer] [facility]. provides no warranty or guarantee of the accuracy or completeness of information in this document.
[2023-04-24 08:58] LABS: AST(SGOT) 22 U/L (15-37); Alanine Aminotransfer ALT/SGPT 36 U/L (13-56); Albumin, Serum 3.8 g/dL (3.2-5.0); Alkaline Phosphatase 175 U/L (45-117); Anion Gap 5 (5-15); BUN 20 mg/dL (7-18); BUN/Creat Ratio 28.7 RATIO (10-20); Calcium,Total 9.3 mg/dL (8.5-10.1); Chloride 108 mmol/L (98-107); EST Glomerular Filtration Rate 109 mL/min (>60); Est Glom Filt Rate - Afr Amer 132 mL/min (>60); Globulin 3.8 g/dL (2.2-4.2); Glucose 80 mg/dL (74-106); Potassium 4.1 mmol/L (3.5-5.1); Protein, Total 7.6 g/dL (6.4-8.2); Sodium Level 137 mmol/L (136-145)
== END | disposition home or self-care (01) ==
LOC: LAB 08:02
PROVIDERS: PCP Midwife; Referring Provider Surgery; Visit Provider Surgery
DX: K83.8 Other specified diseases of biliary tract (principal); R74.8 Abnormal levels of other serum enzymes
CPT/HCPCS: 36415; 80053